=== PATIENT | male | born 1965 | race American Indian/Alaskan Native ===

== ENCOUNTER 2017-01-24 11:07 | Day surgery (SDC) | payer MEDICARE, MEDICAID ==
[2017-01-18 11:54] VITALS: BMI 29.7
[2017-01-24] MEDS ORDERED: Midazolam 2 MG/2 ML VIAL ONE (13:01)
[2017-01-24] MEDS ORDERED: Propofol 10 mg/ml Inj (20 ML) ONE (13:01)
[2017-01-24] MEDS ORDERED: ePHEDrine 50 mg/ml Inj ONE (13:13)
[2017-01-24 13:31] VITALS: TEMP 98.4; O2SAT 99
[2017-01-24 14:16] VITALS: BP 93/46; PULSE 91; RESP 18
== END 2017-01-24 15:00 | disposition home or self-care (01) ==
LOC: ENDO 11:07
PROVIDERS: ATTEND Internal Medicine
DX: Z12.11 Encounter for screening for malignant neoplasm of colon (principal); K64.8 Other hemorrhoids; E78.5 Hyperlipidemia, unspecified; I12.9 Hypertensive chronic kidney disease with stage 1 through stage 4 chronic kidney disease, or unspecified chronic kidney disease; E11.22 Type 2 diabetes mellitus with diabetic chronic kidney disease; N18.9 Chronic kidney disease, unspecified; N62 Hypertrophy of breast

== ENCOUNTER 2017-02-12 11:32 | Inpatient (IN) | payer MEDICARE, MEDICAID ==
--- NOTE | 2017-02-12 12:16 | ED PDOC ---
Arrival/HPI - General Chief Complaint: Shortness Of Breath Time Seen by Provider: 02/12/17 11:46 Historian: Patient - History of Present Illness Narrative History of Present Illness (Text): 02/12/17 11:49 Jovanny Vitale is a 51 year old male, whose past medical history includes diabetes , dialysis (M, W, F), and hypertension, who presents to the emergency department after a syncopal episode at home prior to arrival. Patient stated that he woke up in his usoh and began to feel shortness of breath as he went out. He returned home and was walking to his room when he began to feel more shortness of breath and a slight chest pain, and then passed out. Family said they heard a thud on the floor. Patient was found by family quivering on the floor. At present, patient's symptoms have improved after being given oxygen in emergency department. Patient's mother notes that the patient did not eat any breakfast and did not take any of his daily medications yet today. Patient denies any vomiting, urinary symptoms, trauma, head injury, or any other complaint at this time. PMD: Dr. De Souza Time/Duration: Prior to Arrival Symptom Onset: Sudden Symptom Course: Improving Activities at Onset: Light Context: Home Past Medical History - Provider Review Nursing Documentation Reviewed: Yes - Past History Past History: No Previous - Infectious Disease Hx of Infectious Diseases: None - Tetanus Immunization Tetanus Immunization: Unknown - Cardiac Hx Pacemaker: No - Pulmonary Hx Respiratory Disorders: Yes Hx Pneumonia: Yes - Neurological Hx Paralysis: No - HEENT Hx HEENT Disorder: No - Renal Hx Renal Disorder: Yes Hx Dialysis: Yes (MWF) Type of Dialysis Access: shunt Date of Last Dialysis Treatment: 09/19/16 Hx Renal Failure: Yes Other/Comment: Pt states his kidneys function at 30% - Endocrine/Metabolic Hx Endocrine Disorders: Yes Hx Diabetes Mellitus Type 1: Yes Hx Diabetes Mellitus Type 2: Yes - Hematological/Oncological Hx Blood Transfusions: No Hx Blood Transfusion Reaction: No - Integumentary Hx Dermatological Disorder: No - Musculoskeletal/Rheumatological Hx Musculoskeletal Disorders: No - Gastrointestinal Hx Gastrointestinal Disorders: Yes - Genitourinary/Gynecological Hx Genitourinary Disorders: No - Psychiatric Hx Emotional Abuse: No Hx Physical Abuse: No Hx Substance Use: No - Past Surgical History Past Surgical History: No Previous - Surgical History Hx Vascular Surgery: Yes (Perma cath insertion right chest) Other/Comment: Kidney Bx - Anesthesia Hx Anesthesia: Yes Hx Anesthesia Reactions: No Hx Malignant Hyperthermia: No - Suicidal Assessment Feels Threatened In Home Enviroment: No Family/Social History - Physician Review Nursing Documentation Reviewed: Yes Family/Social History: No Known Family HX Smoking Status: Never Smoked Hx Alcohol Use: No Hx Substance Use: No Hx Substance Use Treatment: No Allergies/Home Meds Allergies/Adverse Reactions: Allergies No Known Allergies Allergy (Verified 01/18/17 11:56) Home Medications: Home Meds Medication Instructions Recorded Confirmed Insulin Human NPH/Reg [HumuLIN 30 units SC ACBD 09/16/13 02/12/17 70/30 (NPH/Reg)] cloNIDine [Catapres] 0.2 mg PO QAM 06/07/16 02/12/17 Carvedilol [Coreg] 12.5 mg PO QAM 06/08/16 02/12/17 Cinacalcet [Sensipar] 30 mg PO QAM 08/24/16 02/12/17 Aspirin [Aspirin EC] 325 mg PO QAM 11/20/16 02/12/17 Atorvastatin [Lipitor] 40 mg PO QAM 11/22/16 02/12/17 Allopurinol [Zyloprim] 300 mg PO QAM 01/18/17 02/12/17 Ferric Citrate [Auryxia] 2 tab PO ACTID 01/18/17 02/12/17 Review of Systems - Physician Review All systems were reviewed & negative as marked: Yes - Review of Systems Constitutional: absent: Fevers, Night Sweats Eyes: absent: Vision Changes ENT: absent: Hearing Changes Respiratory: SOB. absent: Cough Cardiovascular: Chest Pain Gastrointestinal: absent: Abdominal Pain Genitourinary Male: absent: Urinary Output Changes (on dialysis (very little urine output at baseline)) Musculoskeletal: absent: Back Pain, Neck Pain Neurological: Dizziness Endocrine: absent: Polyuria, Polydipsia Hemo/Lymphatic: absent: Easy Bleeding Psychiatric: absent: Suicidal Ideation Physical Exam Vital Signs Reviewed: Yes Vital Signs Temp Pulse Resp BP Pulse Ox 02/12/17 14:23 102 H 18 109/69 97 02/12/17 13:09 100 H 18 107/68 97 02/12/17 11:53 18 92 L 02/12/17 11:35 98.4 F 101 H 18 105/65 86 L O2 saturation is 90% on Room Air Temperature: Afebrile Blood Pressure: Normal Pulse: Tachycardic (S1, S2) Respiratory Rate: Normal Appearance: Positive for: Non-Toxic Pain Distress: None Mental Status: Positive for: Alert and Oriented X 3 - Systems Exam Head: Present: Atraumatic, Normocephalic Pupils: Present: PERRL Conjunctiva: Present: Normal Mouth: Present: Moist Mucous Membranes Pharnyx: Present: Normal. No: ERYTHEMA, EXUDATE Neck: Present: Normal Range of Motion Respiratory/Chest: Present: Clear to Auscultation, Good Air Exchange. No: Respiratory Distress, Accessory Muscle Use Cardiovascular: Present: Normal S1, S2, Tachycardic. No: Murmurs Abdomen: Present: Normal Bowel Sounds. No: Tenderness, Distention, Peritoneal Signs Back: Present: Normal Inspection Upper Extremity: Present: Normal Inspection. No: Cyanosis, Edema Lower Extremity: Present: Normal Inspection. No: Edema Neurological: Present: GCS=15, CN II-XII Intact, Speech Normal Skin: Present: Warm, Dry, Normal Color. No: Rashes Psychiatric: Present: Alert, Oriented x 3, Normal Insight, Normal Concentration Medical Decision Making ED Course and Treatment: 02/12/17 11:49 Impression: 51 year old male complaining of a syncopal episode prior to arrival. Differential Diagnosis include but are not limited to: fluid overload vs. PE vs pneumonia vs ACS Plan: -- EKG -- Chest X-ray -- Labs -- Reassess and disposition Prior Visits: Notes and results from previous visits were reviewed. Patient last seen in ED on 09/01/16 for chest pain. Patient was discharged home. Progress Notes: EKG: Ordered, reviewed, and independently interpreted the EKG. Rate : 114 BPM Rhythm : Sinus Tachycardia Interpretation : No ST-segment elevations or depressions, no T-wave inversions, normal intervals. Comparison : No ST-T change compared with 09/01/16 02/12/17 13:[address]: Creator : Reece Rocha MD FINDINGS: PULMONARY ARTERIES: Extensive pulmonary artery filling defects. There is nonocclusive saddle embolus. There are filling defects in lingular and left lower lobe pulmonary artery branches. There are filling defects in right upper, middle and lower lobe pulmonary artery branches. AORTA:No acute findings. No thoracic aortic aneurysm. LUNGS:Unremarkable. No nodule, mass or pulmonary consolidation. PLEURAL SPACES:Unremarkable. No effusion or pneuomothorax. HEART:Unremarkable. No cardiomegaly. No significant pericardial effusion. LYMPH NODES:No lymphadenopathy. BONES, CHEST WALL:Unremarkable. No fracture or destructive lesion OTHER FINDINGS:Unremarkable. IMPRESSION: Extensive bilateral pulmonary embolism. 02/12/17 14:55 Patient with noted history; noted to be tachycardic and hypoxic at high 80s% on room air. Lungs however were CTA b/L. Concern for possible PE. Labs with highly elevated d-dimer and CTA showed extensive b/L pulmonary emboli. Will start heparin. Case discussed with family regarding results. Case discussed with ICU attending, Dr. Granados. Case also discussed with on-call physician, Dr. Umana for admission to Dr. Winchester' service. 02/12/17 15:04 Chest X-ray: Creator : Manuel Padgett MD FINDINGS: LUNGS:No active pulmonary disease. PLEURA:No significant pleural effusion identified, no pneumothorax apparent. CARDIOVASCULAR:Normal. OSSEOUS STRUCTURES:No significant abnormalities. VISUALIZED UPPER ABDOMEN:Normal. OTHER FINDINGS:None. IMPRESSION: No active disease. 02/12/17 15:07 Extremity Ultrasound: Creator : Reece Ramos MD FINDINGS: The visualized deep venous systems of both lower extremities are sonographically normal and compressible. Normal wave forms and augmentation are seen. There is no sonographic evidence for deep venous thrombosis in the visualized segments of both lower extremities. IMPRESSION: No sonographic evidence for deep venous thrombosis in the visualized segments of both lower extremities. - Critical Care Critical Care Minutes: 30 minutes - Lab Interpretations Lab Results: 02/12/17 12:15 02/12/17 12:15 Lab Results 02/12/17 12:15: Sodium 141, Potassium 4.5, Chloride 96, Carbon Dioxide 29, Anion Gap 21 H, BUN 38 H, Creatinine 11.8 H*, Est GFR ( Amer) 6, Est GFR (Non-Af Amer) 5, Random Glucose 174 H, Calcium 9.7, Magnesium 2.6 H, Total Bilirubin 1.0, AST 22, ALT 17, Alkaline Phosphatase 90, Lactate Dehydrogenase 511, Total Creatine Kinase 115, Troponin I 0.05 D, Total Protein 9.1 H, Albumin 4.8, Globulin 4.3, Albumin/Globulin Ratio 1.1, Lipase 143 02/12/17 12:15: PT 11.1, INR 1.03, APTT 23.6 L, D-Dimer, Quantitative 8.43 H 02/12/17 12:15: WBC 8.7 D, RBC 3.32 L, Hgb 10.5 L, Hct 33.1 L, MCV 99.7, MCH 31.6, MCHC 31.7, RDW 15.2 H, Plt Count 163, MPV 11.6 H, Gran % 74.8 H, Lymph % ( Auto) 14.7 L, Corson % (Auto) 7.6 H, Eos % (Auto) 2.7, Baso % (Auto) 0.2, Gran # 6.53 H, Lymph # 1.3, Corson # 0.7 H, Eos # 0.2, Baso # 0.02 02/12/17 11:50: POC Glucose (mg/dL) 182 H I have reviewed the lab results: Yes - RAD Interpretation Radiology Orders: 02/12/17 11:56 CHEST PORTABLE [RAD] Stat 02/12/17 12:56 ANGIO CHEST PE PROTOCOL [CT] Stat DUPLEX LOWER EXTRM VEIN BILAT [US] Stat - Medication Orders Current Medication Orders: Carvedilol (Coreg) 12.5 mg PO QAM ANDREW Clonidine HCl (Catapres) 0.2 mg PO QAM [facility] Insulin Human Regular (Humulin R Med) 0 units SC Q4H ANDREW PRN Reason: Protocol Pantoprazole Sodium (Protonix Ec Tab) 40 mg PO 0630 ANDREW Discontinued Medications Heparin Sodium (Porcine) (Heparin) 7,700 units 80 units/kg (7700 units) IV ONCE ONE PRN Reason: Protocol Stop: 02/12/17 13:44 Last Admin: 02/12/17 14:15 Dose: 7,700 units Heparin Sodium/Sodium Chloride (Heparin 39370 Units/250ml 1/2 Normal Saline) 25 ,000 units in 250 mls @ 17.227 mls/hr IV .[id number] STA; 18 UNITS/KG/HR PRN Reason: Protocol Stop: 02/12/17 13:45 Last Admin: 02/12/17 14:15 Dose: 18 units/kg/hr, 17.227 mls/hr Iodixanol (Visipaque 320 Mg/Ml 100 Ml) Confirm Administered Dose 100 ml IV .[facility] Stop: 02/12/17 13:12 - Scribe Statement The provider has reviewed the documentation as recorded by the Scribe Ellie Lee Provider Scribe Attestation: All medical record entries made by the Scribe were at my direction and personally dictated by me. I have reviewed the chart and agree that the record accurately reflects my personal performance of the history, physical exam, medical decision making, and the department course for this patient. I have also personally directed, reviewed, and agree with the discharge instructions and disposition. Disposition/Present on Arrival - Present on Arrival Any Indicators Present on Arrival: No History of DVT/PE: No History of Uncontrolled Diabetes: No Urinary Catheter: No History of Decub. Ulcer: No History Surgical Site Infection Following: None - Disposition Have Diagnosis and Disposition been Completed?: Yes Diagnosis: Pulmonary emboli Disposition: HOSPITALIZED Disposition Time: 13:45 Patient Plan: ICU Patient Problems: Current Active Problems Problem Status Onset Pulmonary emboli Acute Condition: SERIOUS
[2017-02-12 12:17] LABS: ADD MANUAL DIFF? NO
[2017-02-12 12:23] LABS: BASO # 0.02 K/mm3 (0.0-2.0); BASO % 0.2 % (0.0-3.0); EOS # 0.2 (0.0-0.7); EOS % 2.7 % (1.5-5.0); GRAN # 6.53 (1.4-6.5); GRAN % 74.8 % (50.0-68.0); HEMATOCRIT 33.1 % (42.0-52.0); LYMPH # 1.3 (1.2-3.4); LYMPH % 14.7 % (22.0-35.0); MEAN CELL VOLUME 99.7 fL (80.0-105.0); MEAN CORPUSCULAR HEMOGLOBIN 31.6 pg (25.0-35.0); MEAN CORPUSCULAR HGB CONC 31.7 g/dl (31.0-37.0); MEAN PLATELET VOLUME 11.6 fl (7.0-11.0); MONO # 0.7 (0.1-0.6); MONO % 7.6 % (1.0-6.0); PLATELET COUNT 163 10^3/uL (120.0-450.0); RED CELL DISTRIBUTION WIDTH 15.2 % (11.5-14.5); WHITE BLOOD COUNT 8.7 10^3/ul (4.5-11.0)
--- NOTE | 2017-02-12 12:30 | RAD ---
HISTORY: shortness of breath, syncope COMPARISON: 09/01/2016 FINDINGS: LUNGS: No active pulmonary disease. PLEURA: No significant pleural effusion identified, no pneumothorax apparent. CARDIOVASCULAR: Normal. OSSEOUS STRUCTURES: No significant abnormalities. VISUALIZED UPPER ABDOMEN: Normal. OTHER FINDINGS: None. IMPRESSION: No active disease.
[2017-02-12 12:38] LABS: ALB/GLOB RATIO 1.1 (1.1-1.8); CALCIUM 9.7 mg/dL (8.4-10.5); MAGNESIUM 2.6 mg/dL (1.7-2.2); POTASSIUM 4.5 mmol/L (3.6-5.0); TOTAL PROTEIN 9.1 g/dL (5.8-8.3)
[2017-02-12 12:46] LABS: TROPONIN I 0.05 ng/mL
[2017-02-12 12:47] LABS: INR 1.03 (0.93-1.08); PARTIAL THROMBOPLASTIN TIME 23.6 Seconds (23.7-30.8)
[2017-02-12 12:56] LABS: D DIMER 8.43 mg/L FEU (0-0.50)
[2017-02-12] MEDS ORDERED: Iodixanol 320 MG/ML 100 ML BOTTLE IV ONE (13:11)
[2017-02-12] MEDS ORDERED: Heparin25000 units/250ml 1/2NS 25,000 UNITS/250 ML BAG IV STA (13:44)
--- NOTE | 2017-02-12 13:44 | CT ---
PROCEDURE: CT Chest with contrast (Pulmonary Angiogram) HISTORY: sob, chest pain, syncope - r/o PE COMPARISON: None available. TECHNIQUE: Axial computed tomography images were obtained of the chest in the pulmonary arterial phase of enhancement. Coronal and sagittal reformatted images were created and reviewed. Intravenous contrast dose: 100 mL Visipaque 320 Radiation dose: Total exam DLP = 715.53 mGy-cm. This CT exam was performed using one or more of the following dose reduction techniques: Automated exposure control, adjustment of the mA and/or kV according to patient size, and/or use of iterative reconstruction technique. FINDINGS: PULMONARY ARTERIES: Extensive pulmonary artery filling defects. There is nonocclusive saddle embolus. There are filling defects in lingular and left lower lobe pulmonary artery branches. There are filling defects in right upper, middle and lower lobe pulmonary artery branches. AORTA: No acute findings. No thoracic aortic aneurysm. LUNGS: Unremarkable. No nodule, mass or pulmonary consolidation. PLEURAL SPACES: Unremarkable. No effusion or pneuomothorax. HEART: Unremarkable. No cardiomegaly. No significant pericardial effusion. LYMPH NODES: No lymphadenopathy. BONES, CHEST WALL: Unremarkable. No fracture or destructive lesion OTHER FINDINGS: Unremarkable. IMPRESSION: Extensive bilateral pulmonary embolism. This finding was discussed by telephone with Dr. Xiao at 1:40 p.m. on 02/12/2017.
--- NOTE | 2017-02-12 14:40 | US ---
HISTORY: Leg pain and swelling. Evaluate for DVT PHYSICIAN(S): Reece Azevedo MD. TECHNIQUE: Duplex sonography and color-flow Doppler with graded compression were used to evaluate the deep venous systems of both lower extremities. FINDINGS: The visualized deep venous systems of both lower extremities are sonographically normal and compressible. Normal wave forms and augmentation are seen. There is no sonographic evidence for deep venous thrombosis in the visualized segments of both lower extremities. IMPRESSION: No sonographic evidence for deep venous thrombosis in the visualized segments of both lower extremities.
--- NOTE | 2017-02-12 15:10 | CON ---
DATE: 02/12/2017 This is a 51-year-old gentleman with history of diabetes, hypertension, end- stage renal disease on dialysis, and a history of several syncopal episodes in the past, who presented this time with another syncopal episode that happened today. The patient was admitted to [facility] Emergency Room where subsequent workup revealed a large saddle embolus. The patient's first troponin came back negative. BNP is pending. Echocardiogram is pending. The patient denies nausea, vomiting, diarrhea, or constipation. He does have some pleuritic chest pain, increased shortness of breath, preceding syncopal episodes. No hemoptysis, no cough, no sputum production. PAST MEDICAL HISTORY: Diabetes, hypertension, end-stage renal disease, dialysis. FAMILY HISTORY: Noncontributory. SOCIAL HISTORY: No alcohol or illicit drug abuse. No tobacco smoking. FAMILY HISTORY: Positive for VTE in his mom. ALLERGIES: NKDA. REVIEW OF SYSTEMS: Revealed 12-organ system other than mentioned in history of present illness is negative. PHYSICAL EXAMINATION: VITAL SIGNS: Temperature 98.4, heart rate 102, blood pressure 109/69, respiratory rate 18, oxygen saturation 97% on nasal cannula. HEAD AND NECK: Atraumatic. LUNGS: Clear to auscultation bilaterally. HEART: Regular rate and rhythm. S1, S2 normal. ABDOMEN: Soft, nontender, nondistended. MUSCULOSKELETAL: No C/C/E. NEUROLOGIC: The patient moves all extremities spontaneously. SKIN: Moist. PSYCHIATRIC: The patient is alert and oriented x 3. LABORATORY DATA: Sodium 141, potassium 4.5, BUN 38, creatinine 11.8 (on dialysis), glucose 174, AST 22, ALT 12. Troponin 0.05. WBC 8.7, hemoglobin 10.5, platelet count 163. MEDICATIONS AT HOME: Clonidine, insulin 70/30,, Sensipar, Coreg, Lipitor, aspirin, Zyloprim. CAT scan the chest revealed extensive bilateral pulmonary embolism. ASSESSMENT AND PLAN: This is a 51-year-old gentleman who presented with saddle embolus with syncopal episode. At present time, the patient is alert, awake, hemodynamically and respiratory-bal stable except for mild tachycardia at 103. The patient is on therapeutic anticoagulation with heparin. Hematology consult requested. Echocardiogram and BNP are pending to evaluate short-term risk for poor outcome. The patient will be going to ICU. As the patient has ESRD and on HD, I would recommend avoiding DOA (ESRD/HD patients were excluded from RCT with DOA) and proceed with coumadin after PTT becomes therapeutic, however will defer final judgement on choice of anticoagulants to Hem service. I would continue to target euvolemia, euglycemia, normothermia, and oxygen saturation more than 90%. I would continue with deep venous thrombosis and gastrointestinal prophylaxis. ccm time 40 min Jordan Law MD cc: [id number] TT: 02/12/2017 15:09:47 Confirmation # [id number] Dictation # [id number] MTDD
[2017-02-12] MEDS ORDERED: Insulin Regular 1 UNITS/0.01 ML ML ONE (15:52)
[2017-02-12] MEDS: Insulin Reg-MEDIUM-Coverage SC SCH ×3 (15:53→22:20)
--- NOTE | 2017-02-12 15:59 | CP.PCM.HP ---
<Telma Orellana - Last Filed: 02/13/17 17:23> History of Present Illness - History of Present Illness History of Present Illness: CC: I felt short of breath and I fell Patient is a 51 y/o AAM with PMH of htn, diabetic nephropathy, ESRD ( HD M,W,F) , Anemia of chronic disease, hld, gastric ulcer, IDDM2, h/o falls presented to the ED s/p syncope. Patient states earlier today, while walking around the house , he felt short of breath, and dizzy and fell on the ground. Patient states he fell on the left side of his body. Patient states he remembers the event as it unfolded, patient denies LOC. Patient doesn't remember hitting his head. Patient denies seizures or h/o seizures. Patient admits to falling in the past, with the recent one being 2 weeks ago. Patient walks unassisted. Patient states when he fell he felt sweaty, admits to cough with yellow sputum for the past 2 weeks. Patient denies n/v/d, denies headache. Admits to sob, and cp. Denies dizziness. Denies aches and pain on the left side of his body, denies bruises. Patient is been on HD since Jul 2016 2nd to uncontrolled DM and htn. Patient states he spends most of his time at home lying down, only goes outside sometimes. No recent travels. Patient was tachy and hypoxic in the ED, d-dimer was elevated , CTPA revealed bilateral extensive PE. LE U/S was negative for DVT. PMH: htn, diabetic nephropathy, ESRD ( HD M,W,F), Anemia of chronic disease, hld , gastric ulcer, IDDM2, h/o falls. PSH: A-F fistula 2016, HD catheter [facility]: Mom has h/o PE and DVT on Coumadin, htn, DM. Father from cancer ( don't know the type) Maternal aunt has PE and DVTs as well. Social: denies tobacco or illicit drug use, denies alcohol. unemployed. Lives with his mom. Allergy: NKDA Home meds: please see emr for full list. Present on Admission - Present on Admission Any Indicators Present on Admission: Yes History of DVT/PE: No History of Uncontrolled Diabetes: Yes Urinary Catheter: No Decubitus Ulcer Present: No Review of Systems - Review of Systems All systems: reviewed and no additional remarkable complaints except - Constitutional Constitutional: As Per HPI - EENT Eyes: As Per HPI Nose/Mouth/Throat: As Per HPI - Cardiovascular Cardiovascular: As Per HPI - Respiratory Respiratory: As Per HPI - Gastrointestinal Gastrointestinal: As Per HPI - Genitourinary Genitourinary: As Per HPI - Reproductive: Male Reproductive:Male: As Per HPI - Musculoskeletal Musculoskeletal: As Per HPI - Integumentary Integumentary: As Per HPI - Neurological Neurological: As Per HPI - Psychiatric Psychiatric: As Per HPI - Endocrine Endocrine: As Per HPI - Hematologic/Lymphatic Hematologic: absent: Easy Bleeding, Easy Bruising Past Patient History - Infectious Disease Hx of Infectious Diseases: None - Tetanus Immunizations Tetanus Immunization: Unknown - Past Medical History & Family History Past Medical History?: Yes - Past Social History Smoking Status: Never Smoked Alcohol: None Drugs: Denies Home Situation {Lives}: With Family - CARDIAC Hx Pacemaker: No - PULMONARY Hx Respiratory Disorders: Yes Hx Pneumonia: Yes - NEUROLOGICAL Hx Paralysis: No - HEENT Hx HEENT Problems: No - RENAL Hx Chronic Kidney Disease: Yes Hx Dialysis: Yes (MWF) Type of Dialysis Access: shunt Date of Last Dialysis Treatment: 09/19/16 Hx Renal Failure: Yes Other/Comment: Pt states his kidneys function at 30% - ENDOCRINE/METABOLIC Hx Endocrine Disorders: Yes Hx Diabetes Mellitus Type 1: Yes Hx Diabetes Mellitus Type 2: Yes - HEMATOLOGICAL/ONCOLOGICAL Hx Blood Transfusions: No Hx Blood Transfusion Reaction: No - INTEGUMENTARY Hx Dermatological Problems: No - MUSCULOSKELETAL/RHEUMATOLOGICAL Hx Musculoskeletal Disorders: No - GASTROINTESTINAL Hx Gastrointestinal Disorders: Yes - GENITOURINARY/GYNECOLOGICAL Hx Genitourinary Disorders: No - PSYCHIATRIC Hx Emotional Abuse: No Hx Physical Abuse: No Hx Substance Use: No - SURGICAL HISTORY Hx Vascular Surgery: Yes (Perma cath insertion right chest) Other/Comment: Kidney Bx - ANESTHESIA Hx Anesthesia: Yes Hx Anesthesia Reactions: No Hx Malignant Hyperthermia: No Meds Allergies/Adverse Reactions: Allergies Allergy/AdvReac Type Severity Reaction Status Date / Time No Known Allergies Allergy Verified 01/18/17 11:56 Physical Exam - Constitutional Appears: No Acute Distress, Chronically Ill - Head Exam Head Exam: ATRAUMATIC, NORMAL INSPECTION, NORMOCEPHALIC - Eye Exam Eye Exam: EOMI, Normal appearance, PERRL. absent: Scleral icterus - ENT Exam ENT Exam: Mucous Membranes Dry Additional comments: and pale. - Neck Exam Neck exam: Positive for: Normal Inspection - Respiratory Exam Respiratory Exam: Clear to Auscultation Bilateral, NORMAL BREATHING PATTERN. absent: Rales, Rhonchi, Wheezes, Respiratory Distress, Stridor - Cardiovascular Exam Cardiovascular Exam: Tachycardia, REGULAR RHYTHM, RRR, +S1, +S2. absent: Systolic Murmur - GI/Abdominal Exam GI & Abdominal Exam: Normal Bowel Sounds, Soft. absent: Distended, Firm, Guarding, Rigid, Tenderness - Extremities Exam Extremities exam: Positive for: normal inspection. Negative for: calf tenderness, pedal edema, tenderness Additional comments: Negative kaylene's sign - Back Exam Back exam: NORMAL INSPECTION - Neurological Exam Neurological exam: Alert, Oriented x3 - Psychiatric Exam Psychiatric exam: Depressed - Skin Skin Exam: Dry, Intact, Normal Color, Warm Additional comments: . Results - Vital Signs Recent Vital Signs: Last Vital Signs Temp 98.4 F 02/12/17 11:35 Pulse 98 H 02/12/17 15:48 Resp 18 02/12/17 15:48 BP 111/71 02/12/17 15:48 Pulse Ox 98 02/12/17 15:48 - Labs Result Diagrams: 02/12/17 12:15 02/12/17 12:15 Assessment & Plan - Assessment and Plan (Free Text) Assessment: Patient is a 51 y/o AAM with PMH of htn, diabetic nephropathy, ESRD ( HD M,W,) , Anemia of chronic disease, hld, gastric ulcer, IDDM2 presented to the ED s/p syncope. Plan: 1) Syncope secondary to bilateral extensive PE on CT - Patient is not hypoglycemic, not hypotensive, and stable h/h thus less likely to be the cause. - Patient was hypoxic on arrival to the ED, currently saturating well on room air. - LE u/s negative for dvt. - Patient is also currently hemodynamically stable - admit to ICU for close monitoring - heparin bolus and drip as per protocol - echo ordered to evaluate for right sided heart strain - troponin normal x1, will continue to trend. - heme onc on consult - cardio consult 2) ESRD -with anemia - HD M, W , F - Nephro consult for HD - renal carb controlled diet. 3) htn - clonidine and coreg 4) IDDM - ISSS - Accuchekc achs - carb controlled diet 5) DVT and gi prophylaxis: heparin drip for pe, and protonix. Patient seen, examined, will discuss with Dr Umana. - Date & Time Date: 02/12/17 Time: 15:25 <Francisco Javier Umana - Last Filed: 03/07/17 18:39> Results - Vital Signs Recent Vital Signs: Last Vital Signs Temp 98.3 F 02/15/17 19:52 Pulse 110 H 02/15/17 19:52 Resp 20 02/15/17 19:52 BP 128/76 02/15/17 19:52 Pulse Ox 96 02/15/17 19:52 - Labs Result Diagrams: 02/17/17 07:47 02/17/17 07:44 Attending/Attestation - Attestation I have personally seen and examined this patient.: Yes I have fully participated in the care of the patient.: Yes I have reviewed all pertinent clinical information: Yes Notes (Text): 03/06/17 15:08 Medical record note made by the resident after discussion with my direction and input after the patient was personally seen and examined by me. I have reviewed the chart and agree that the record accurately reflects by personal performance of the history, physical exam, data review, and medical decision-making, in the course for the patient. I have also personally directed the plan of care.
[2017-02-12 17:44] VITALS: BMI 28.2
[2017-02-12] MEDS: Heparin25000 units/250ml 1/2NS 25,000 UNITS/250 ML BAG IV SCH (17:45)
--- NOTE | 2017-02-12 21:37 | CARD ---
APPROVED REPORT EKG Measurement Heart [id number] <Conclusion> Sinus tachycardia Otherwise normal ECG
--- NOTE | 2017-02-12 22:20 | CON ---
DATE: 02/12/2017 REASON FOR CONSULTATION: Bilateral pulmonary embolism. REQUESTING PHYSICIAN: Dr. Winchester. HISTORY OF PRESENT ILLNESS: The patient is a 51-year-old male known to me from office. He accompanies his mother who has a history of bilateral DVT and pulmonary embolism. Aunt also has history of DVT. He was brought to the ER for sudden onset of shortness of breath. CAT scan of the chest showed bilateral extensive pulmonary embolism. He was started on dialysis last year. He is being currently dialyzed on Saturday, Saturday, Saturday. Doppler of lower extremity did not show any DVT. Hemodynamically, he is stable. Currently getting heparin drip. He was walking in the house when he felt sudden shortness of breath, no recent long drive or airplane travels. No edema or swelling of bilateral lower extremities. PAST MEDICAL HISTORY: End-stage renal disease currently on hemodialysis, diabetes mellitus type 2. PAST SURGICAL HISTORY: History of shunt placement, permanent catheter insertion for dialysis. FAMILY HISTORY: None. FAMILY HISTORY: Positive strong family history of DVT and pulmonary embolism. Mother had thrombosis and pulmonary embolism. One aunt had DVT. PERSONAL HISTORY: Never smoked. No history of alcohol abuse. SOCIAL HISTORY: Lives at home. ALLERGIES: No known drug allergies. HOME MEDICATIONS: Insulin, clonidine 0.2 mg in the morning, Coreg 12.5 mg in the morning, aspirin 325 mg in the morning, Lipitor 40 mg daily. REVIEW OF SYSTEMS: As per HPI. Rest of 12-point review of systems reviewed and negative. PHYSICAL EXAMINATION: GENERAL: Comfortable in bed, in no acute distress. VITAL SIGNS: Pulse ox is 86% on oxygen by nasal cannula, respiratory rate 18 per minute, blood pressure 105/65, heart rate is 101 per minute, temperature 98.4. HEENT: Normal. NECK: No lymphadenopathy. CHEST: Air entry present, equal bilateral. No added sounds. CARDIOVASCULAR: S1, S2 normal. No murmur, no gallop. ABDOMEN: Soft, nontender, no hepatosplenomegaly. EXTREMITIES: No edema. SPINE: Nontender. CENTRAL NERVOUS SYSTEM: Alert, oriented x 3. No sensory or motor deficit. No calf tenderness. SKIN: No petechia, no rashes. LABORATORY DATA: White count 8.7, hemoglobin 10.5, hematocrit 33.1, MCV 99.7, platelet count 163. Granulocytes 74%, lymphocytes 14%, monocytes 7.6%. PTT 23.6. D-dimer 8.4. Sodium 141, potassium 4.5, creatinine 11.8, calcium 9.7, magnesium 2.6, AST 22, ALT 17. Troponin 0.05. BNP 500. ASSESSMENT: 1. Extensive bilateral pulmonary embolism, nonocclusive saddle embolism on the left side. 2. End-stage renal disease on hemodialysis. 3. Hypertension. 4. Diabetes mellitus type 2. PLAN: 1. He is currently on heparin drip. I would recommend continuing heparin drip for 24 hours. We will start Coumadin after 24 hours of heparin infusion. Hypercoagulable workup : , factor V Leiden, prothrombin gene mutation, MTHFR gene mutation, antiphospholipid antibody. His mother has MTHFR gene mutation and so does aunt; she also has low level of antiphospholipid antibody. He has unprovoked extensive pulmonary embolism, most likely will need lifelong anticoagulation. 2. End-stage renal disease, currently on hemodialysis. Creatinine elevated to 11.8. 3. Diabetes mellitus. Management as per primary team. 4. He has mild anemia, hemoglobin 10.5, hematocrit 33.1. We will do workup for anemia. If iron studies are normal, he might need erythropoietin stimulating agent to maintain normal hemoglobin in the near future. Discussed with the patient the plan. Thank you, Dr. Winchester, for allowing us to participate in the patient's care. Brooke Escobar MD cc: [id number] TT: 02/12/2017 22:19:44 Confirmation # [id number] Dictation # [id number] ramona HANSEN
[2017-02-13] MEDS: Pantoprazole 40 mg EC Tab PO SCH (06:29)
[2017-02-13] MEDS: Heparin25000 units/250ml 1/2NS 25,000 UNITS/250 ML BAG IV SCH (06:32)
[2017-02-13 07:23] LABS: ADD MANUAL DIFF? NO
[2017-02-13 08:04] LABS: CALCIUM 9.2 mg/dL (8.4-10.5); PHOSPHOROUS 6.9 mg/dL (2.5-4.5); POTASSIUM 4.4 mmol/L (3.6-5.0)
[2017-02-13 08:06] LABS: BASO # 0.02 K/mm3 (0.0-2.0); BASO % 0.2 % (0.0-3.0); EOS # 0.2 (0.0-0.7); EOS % 2.4 % (1.5-5.0); GRAN % 69.4 % (50.0-68.0); HEMATOCRIT 31.4 % (42.0-52.0); LYMPH # 1.9 (1.2-3.4); LYMPH % 18.4 % (22.0-35.0); MEAN CELL VOLUME 98.7 fL (80.0-105.0); MEAN CORPUSCULAR HEMOGLOBIN 30.8 pg (25.0-35.0); MEAN CORPUSCULAR HGB CONC 31.2 g/dl (31.0-37.0); MEAN PLATELET VOLUME 12.2 fl (7.0-11.0); MONO % 9.6 % (1.0-6.0); PLATELET COUNT 181 10^3/uL (120.0-450.0); WHITE BLOOD COUNT 10.1 10^3/ul (4.5-11.0)
[2017-02-13] MEDS: Insulin Reg-MEDIUM-Coverage SC SCH ×4 (08:22→22:20)
[2017-02-13 08:51] LABS: TROPONIN I 0.41 ng/mL
--- NOTE | 2017-02-13 16:26 | CP.CCUPN ---
<Zahida Brown - Last Filed: 02/13/17 16:30> CCU Subjective - Physician Review Events Since Last Encounter (Free Text): 02/13/17 16:23 Pt stable on O2 via NC overnight, continues with some SOB, chest tightness improved Subjective (Free Text): 02/13/17 16:23 Critical care progress note for Dr. Law-Zahida Brown, PGY-1 Pt S & E at bedside this AM. Pt stable overnight, continues with some SOB, however pt feels improved. Pt also reports improvement in chest tightness. Admits to cough, would like a cough suppressant. Denies N/V/F/C, CP. 02/13/17 16:25 CCU Objective - Vital Signs / Intake & Output Vital Signs (Last 4 hours): Vital Signs Pulse Resp BP Pulse Ox 02/13/17 13:40 89 20 97 02/13/17 13:30 93 H 21 100 02/13/17 13:20 94 H 21 96 02/13/17 13:10 92 H 18 97 02/13/17 13:00 92 H 21 153/89 H 97 02/13/17 12:50 92 H 22 98 02/13/17 12:40 94 H 18 98 02/13/17 12:30 89 19 99 Intake and Output (Last 8hrs): Intake & Output 02/13/17 02/13/17 02/13/17 06:59 14:59 22:59 Intake Total 400 50 Balance 400 50 Intake: IV 160 50 Oral 240 Other: Voiding Method Urinal - Physical Exam Head: Positive for: Atraumatic, Normocephalic Pupils: Positive for: PERRL Extroacular Muscles: Positive for: EOMI Conjunctiva: Positive for: Normal Ears: Positive for: Normal Mouth: Positive for: Moist Mucous Membranes Pharnyx: Positive for: Normal. Negative for: ERYTHEMA, EXUDATE Nose (External): Positive for: Atraumatic Neck: Positive for: Normal Range of Motion Respiratory/Chest: Positive for: Clear to Auscultation, Good Air Exchange. Negative for: Respiratory Distress, Accessory Muscle Use, Wheezes, Decreased Breath Sounds, Rales, Retracting, Rhonchi, Tachypneic Cardiovascular: Positive for: Normal S1, S2, Tachycardic. Negative for: Murmurs Abdomen: Positive for: Normal Bowel Sounds. Negative for: Tenderness, Distention, Peritoneal Signs Upper Extremity: Positive for: Normal Inspection. Negative for: Cyanosis, Edema , Swelling Lower Extremity: Positive for: Normal Inspection. Negative for: Edema, Swelling Neurological: Positive for: GCS=15, CN II-XII Intact, Speech Normal Skin: Positive for: Warm, Dry, Normal Color. Negative for: Rashes Psychiatric: Positive for: Alert, Oriented x 3, Normal Insight, Normal Concentration - Medications Active Medications: Active Medications Generic Name Dose Route Start Last Admin Trade Name Freq PRN Reason Stop Dose Admin Benzonatate 100 mg 02/13/17 10:00 02/13/17 09:10 Tessalon Perles PO Not Given TID ANDREW Carvedilol 12.5 mg 02/13/17 10:00 Coreg PO QAM ANDREW Clonidine HCl 0.2 mg 02/13/17 10:00 Catapres PO QAM ANDREW Guaifenesin/Dextromethorphan 5 ml 02/13/17 16:20 Robitussin Dm PO Q4H PRN Cough Heparin Sodium/Sodium Chloride 25,000 units in 250 mls @ 17.227 mls/hr 15:30 02/13/17 08:16 Heparin 19665 Units/250ml 1/2 Normal Saline IV 13 units/kg/hr .[id number] ANDREW 12.442 mls/hr Protocol Titration 18 UNITS/KG/HR Insulin Human Regular 0 units 02/12/17 22:00 02/13/17 11:58 Humulin R Med SC 1 units ACHS ANDREW Administration Protocol Pantoprazole Sodium 40 mg 02/13/17 06:30 02/13/17 06:29 Protonix Ec Tab PO 40 mg 0630 ANDREW Administration Warfarin Sodium 2 mg 02/13/17 18:00 Coumadin PO 1800 [facility] Protocol - Patient Studies Lab Studies: Lab Studies 02/13/17 02/13/17 02/13/17 Range/Units 13:50 06:50 06:50 WBC (4.5-11.0) 10^3/ul RBC (3.5-6.1) 10^6/uL Hgb (14.0-18.0) gm/dL Hct (42.0-52.0) % MCV (80.0-105.0) fL MCH (25.0-35.0) pg MCHC (31.0-37.0) g/dl RDW (11.5-14.5) % Plt Count (120.0-450.0) 10^3/uL MPV (7.0-11.0) fl Gran % (50.0-68.0) % Lymph % (Auto) (22.0-35.0) % Mcleod % (Auto) (1.0-6.0) % Eos % (Auto) (1.5-5.0) % Baso % (Auto) (0.0-3.0) % Gran # (1.4-6.5) Lymph # (1.2-3.4) Mcleod # (0.1-0.6) Eos # (0.0-0.7) Baso # (0.0-2.0) K/mm3 APTT 65.8 H 85.1 H* (23.7-30.8) Seconds Sodium 140 (132-148) mmol/L Potassium 4.4 (3.6-5.0) mmol/L Chloride 97 L (98-107) mmol/L Carbon Dioxide 28 (21-33) mmol/L Anion Gap 19 (10-20) BUN 50 H (7-21) mg/dL Creatinine 13.8 H* (0.5-1.4) mg/dL Est GFR ( Amer) 5 Est GFR (Non-Af Amer) 4 POC Glucose (mg/dL) (65-110) mg/dL Random Glucose 114 H (70-110) mg/dL Calcium 9.2 (8.4-10.5) mg/dL Phosphorus 6.9 H (2.5-4.5) mg/dL Troponin I 0.41 H* D ng/mL 02/13/17 02/12/17 02/12/17 Range/Units 06:50 22:21 22:21 WBC 10.1 (4.5-11.0) 10^3/ul RBC 3.18 L (3.5-6.1) 10^6/uL Hgb 9.8 L (14.0-18.0) gm/dL Hct 31.4 L (42.0-52.0) % MCV 98.7 (80.0-105.0) fL MCH 30.8 (25.0-35.0) pg MCHC 31.2 (31.0-37.0) g/dl RDW 15.0 H (11.5-14.5) % Plt Count 181 (120.0-450.0) 10^3/uL MPV 12.2 H (7.0-11.0) fl Gran % 69.4 H (50.0-68.0) % Lymph % (Auto) 18.4 L (22.0-35.0) % Mcleod % (Auto) 9.6 H (1.0-6.0) % Eos % (Auto) 2.4 (1.5-5.0) % Baso % (Auto) 0.2 (0.0-3.0) % Gran # 7.00 H (1.4-6.5) Lymph # 1.9 (1.2-3.4) Mcleod # 1.0 H (0.1-0.6) Eos # 0.2 (0.0-0.7) Baso # 0.02 (0.0-2.0) K/mm3 APTT 153.6 H* (23.7-30.8) Seconds Sodium (132-148) mmol/L Potassium (3.6-5.0) mmol/L Chloride (98-107) mmol/L Carbon Dioxide (21-33) mmol/L Anion Gap (10-20) BUN (7-21) mg/dL Creatinine (0.5-1.4) mg/dL Est GFR ( Amer) Est GFR (Non-Af Amer) POC Glucose (mg/dL) (65-110) mg/dL Random Glucose (70-110) mg/dL Calcium (8.4-10.5) mg/dL Phosphorus (2.5-4.5) mg/dL Troponin I 0.55 H* D ng/mL 02/12/17 Range/Units 21:50 WBC (4.5-11.0) 10^3/ul RBC (3.5-6.1) 10^6/uL Hgb (14.0-18.0) gm/dL Hct (42.0-52.0) % MCV (80.0-105.0) fL MCH (25.0-35.0) pg MCHC (31.0-37.0) g/dl RDW (11.5-14.5) % Plt Count (120.0-450.0) 10^3/uL MPV (7.0-11.0) fl Gran % (50.0-68.0) % Lymph % (Auto) (22.0-35.0) % Mcleod % (Auto) (1.0-6.0) % Eos % (Auto) (1.5-5.0) % Baso % (Auto) (0.0-3.0) % Gran # (1.4-6.5) Lymph # (1.2-3.4) Mcleod # (0.1-0.6) Eos # (0.0-0.7) Baso # (0.0-2.0) K/mm3 APTT (23.7-30.8) Seconds Sodium (132-148) mmol/L Potassium (3.6-5.0) mmol/L Chloride (98-107) mmol/L Carbon Dioxide (21-33) mmol/L Anion Gap (10-20) BUN (7-21) mg/dL Creatinine (0.5-1.4) mg/dL Est GFR ( Amer) Est GFR (Non-Af Amer) POC Glucose (mg/dL) 152 H (65-110) mg/dL Random Glucose (70-110) mg/dL Calcium (8.4-10.5) mg/dL Phosphorus (2.5-4.5) mg/dL Troponin I ng/mL Laboratory Results - last 24 hr 02/12/17 02/12/17 02/12/17 21:50 22:21 22:21 WBC RBC Hgb Hct MCV MCH MCHC RDW Plt Count MPV Gran % Lymph % (Auto) Mcleod % (Auto) Eos % (Auto) Baso % (Auto) Gran # Lymph # Mcleod # Eos # Baso # APTT 153.6 H* Sodium Potassium Chloride Carbon Dioxide Anion Gap BUN Creatinine Est GFR ( Amer) Est GFR (Non-Af Amer) POC Glucose (mg/dL) 152 H Random Glucose Calcium Phosphorus Troponin I 0.55 H* D 02/13/17 02/13/17 02/13/17 06:50 06:50 06:50 WBC 10.1 RBC 3.18 L Hgb 9.8 L Hct 31.4 L MCV 98.7 MCH 30.8 MCHC 31.2 RDW 15.0 H Plt Count 181 MPV 12.2 H Gran % 69.4 H Lymph % (Auto) 18.4 L Mcleod % (Auto) 9.6 H Eos % (Auto) 2.4 Baso % (Auto) 0.2 Gran # 7.00 H Lymph # 1.9 Mcleod # 1.0 H Eos # 0.2 Baso # 0.02 APTT 85.1 H* Sodium 140 Potassium 4.4 Chloride 97 L Carbon Dioxide 28 Anion Gap 19 BUN 50 H Creatinine 13.8 H* Est GFR ( Amer) 5 Est GFR (Non-Af Amer) 4 POC Glucose (mg/dL) Random Glucose 114 H Calcium 9.2 Phosphorus 6.9 H Troponin I 0.41 H* D 02/13/17 13:50 WBC RBC Hgb Hct MCV MCH MCHC RDW Plt Count MPV Gran % Lymph % (Auto) Mcleod % (Auto) Eos % (Auto) Baso % (Auto) Gran # Lymph # Mcleod # Eos # Baso # APTT 65.8 H Sodium Potassium Chloride Carbon Dioxide Anion Gap BUN Creatinine Est GFR ( Amer) Est GFR (Non-Af Amer) POC Glucose (mg/dL) Random Glucose Calcium Phosphorus Troponin I Fingerstick Blood Sugar Results: 157 Review of Systems - Review of Systems All systems: reviewed and no additional remarkable complaints except - Constitutional Constitutional: absent: Fever, Chills - EENT Eyes: UNREMARKABLE - Cardiovascular Cardiovascular: UNREMARKABLE. absent: Chest Pain - Respiratory Respiratory: Cough. absent: Wheezing - Gastrointestinal Gastrointestinal: UNREMARKABLE. absent: Abdominal Pain, Nausea, Vomiting - Genitourinary Genitourinary: UNREMARKABLE. absent: Difficulty Urinating - Musculoskeletal Musculoskeletal: UNREMARKABLE. absent: Numbness, Tingling - Neurological Neurological: UNREMARKABLE - Psychiatric Psychiatric: UNREMARKABLE Critical Care Progress Note - Extremities/Vascular Does the Patient have a Central Venous Catheter?: No Does the Patient need a Central Venous Catheter?: No Does the Patient have a Richardson Catheter?: No Does the Patient need a Richardson Catheter?: No - Prophylaxis GI Prophylaxis GI: PPI - Prophylaxis DVT Prophylaxis DVT: Heparin SQ - Nutrition Nutrition: Nutrition Category Date Time Status Renal Diet [DIET] Diets 02/12/17 Dinner Ordered Assessment/Plan - Assessment and Plan (Free Text) Assessment: 51M w/PMH sig for HTN, DM, DM nephropathy, ESRD on HD (MWF), anemia of chronic disease, HLD, gastric ulcer, hx falls admitted to ICU s/p syncopal event, found to have large saddle embolus upon work up, started on Heparin drip. Pt stable overnight, pt to be transferred to tele. Plan: Neuro Alert Awake AOx3 Stable CVS Hx HTN HR in 90's BP 131/52 Cont Coreg Cont Clonidine FU Echo Trops positive x 2 (0.55, 0.41) BNP 500 Cardio following Pulm Large saddle embolus Sat in high 90's on 2L O2 via NC Target SaO2 >94% Tessalon perles Robitussion PRN Cont heparin drip Monitor Pulm following- rec for warfarin GI Diabetic renal diet Nephro ESRD on HD For HD MWF BUN 50 Cr 13.8 Electrolytes WNL, except phos Hyperphosphatemia at 6.9- already on HD Target euvolemia Renal diet Nephro following Able to urinate on own Endo Hx DM Diabetic diet ISS Accuchecks BS 114 Target euglycemia as per NICE sugar trial ID Afebrile No Leukocytosis Heme Saddle embolus D-dimer 8.43 On Heparin drip PTT was 153.6 overnight, Heparin held as per protocol, now 85.1, continue to follow PE protocol Hgb 9.8 from 10.5 Hct 31.4 from 32.8 Plts 181 from 339 MSK Encouraged OOBTC/ambulation GI/DVT ppx On heparin drip Protonix SCDs Dispo Stable Transfer to tele Ambulate DW attending - Date & Time Date: 02/13/17 Time: 07:30 <Jordan Law - Last Filed: 02/13/17 17:50> CCU Objective - Vital Signs / Intake & Output Intake and Output (Last 8hrs): Intake & Output 02/13/17 02/13/17 02/13/17 06:59 14:59 22:59 Intake Total 400 50 Balance 400 50 Intake: IV 160 50 Oral 240 Other: Voiding Method Urinal - Medications Active Medications: Active Medications Generic Name Dose Route Start Last Admin Trade Name Freq PRN Reason Stop Dose Admin Benzonatate 100 mg 02/13/17 10:00 02/13/17 09:10 Tessalon Perles PO Not Given TID [facility] Carvedilol 12.5 mg 02/13/17 10:00 Coreg PO QAM ANDREW Clonidine HCl 0.2 mg 02/13/17 10:00 Catapres PO QAM ANDREW Guaifenesin/Dextromethorphan 5 ml 02/13/17 16:20 Robitussin Dm PO Q4H PRN Cough Heparin Sodium/Sodium Chloride 25,000 units in 250 mls @ 17.227 mls/hr 15:30 02/13/17 08:16 Heparin 87389 Units/250ml 1/2 Normal Saline IV 13 units/kg/hr .[id number] ANDREW 12.442 mls/hr Protocol Titration 18 UNITS/KG/HR Insulin Human Regular 0 units 02/12/17 22:00 02/13/17 11:58 Humulin R Med SC 1 units ACHS ANDREW Administration Protocol Pantoprazole Sodium 40 mg 02/13/17 06:30 02/13/17 06:29 Protonix Ec Tab PO 40 mg 0630 ANDREW Administration Warfarin Sodium 2 mg 02/13/17 18:00 Coumadin PO 1800 ANDREW Protocol - Patient Studies Lab Studies: Lab Studies 02/13/17 02/13/17 02/13/17 Range/Units 13:50 06:50 06:50 WBC (4.5-11.0) 10^3/ul RBC (3.5-6.1) 10^6/uL Hgb (14.0-18.0) gm/dL Hct (42.0-52.0) % MCV (80.0-105.0) fL MCH (25.0-35.0) pg MCHC (31.0-37.0) g/dl RDW (11.5-14.5) % Plt Count (120.0-450.0) 10^3/uL MPV (7.0-11.0) fl Gran % (50.0-68.0) % Lymph % (Auto) (22.0-35.0) % Mcleod % (Auto) (1.0-6.0) % Eos % (Auto) (1.5-5.0) % Baso % (Auto) (0.0-3.0) % Gran # (1.4-6.5) Lymph # (1.2-3.4) Mcleod # (0.1-0.6) Eos # (0.0-0.7) Baso # (0.0-2.0) K/mm3 APTT 65.8 H 85.1 H* (23.7-30.8) Seconds Sodium 140 (132-148) mmol/L Potassium 4.4 (3.6-5.0) mmol/L Chloride 97 L (98-107) mmol/L Carbon Dioxide 28 (21-33) mmol/L Anion Gap 19 (10-20) BUN 50 H (7-21) mg/dL Creatinine 13.8 H* (0.5-1.4) mg/dL Est GFR ( Amer) 5 Est GFR (Non-Af Amer) 4 POC Glucose (mg/dL) (65-110) mg/dL Random Glucose 114 H (70-110) mg/dL Calcium 9.2 (8.4-10.5) mg/dL Phosphorus 6.9 H (2.5-4.5) mg/dL Troponin I 0.41 H* D ng/mL 02/13/17 02/12/17 02/12/17 Range/Units 06:50 22:21 22:21 WBC 10.1 (4.5-11.0) 10^3/ul RBC 3.18 L (3.5-6.1) 10^6/uL Hgb 9.8 L (14.0-18.0) gm/dL Hct 31.4 L (42.0-52.0) % MCV 98.7 (80.0-105.0) fL MCH 30.8 (25.0-35.0) pg MCHC 31.2 (31.0-37.0) g/dl RDW 15.0 H (11.5-14.5) % Plt Count 181 (120.0-450.0) 10^3/uL MPV 12.2 H (7.0-11.0) fl Gran % 69.4 H (50.0-68.0) % Lymph % (Auto) 18.4 L (22.0-35.0) % Mcleod % (Auto) 9.6 H (1.0-6.0) % Eos % (Auto) 2.4 (1.5-5.0) % Baso % (Auto) 0.2 (0.0-3.0) % Gran # 7.00 H (1.4-6.5) Lymph # 1.9 (1.2-3.4) Mcleod # 1.0 H (0.1-0.6) Eos # 0.2 (0.0-0.7) Baso # 0.02 (0.0-2.0) K/mm3 APTT 153.6 H* (23.7-30.8) Seconds Sodium (132-148) mmol/L Potassium (3.6-5.0) mmol/L Chloride (98-107) mmol/L Carbon Dioxide (21-33) mmol/L Anion Gap (10-20) BUN (7-21) mg/dL Creatinine (0.5-1.4) mg/dL Est GFR ( Amer) Est GFR (Non-Af Amer) POC Glucose (mg/dL) (65-110) mg/dL Random Glucose (70-110) mg/dL Calcium (8.4-10.5) mg/dL Phosphorus (2.5-4.5) mg/dL Troponin I 0.55 H* D ng/mL 02/12/17 Range/Units 21:50 WBC (4.5-11.0) 10^3/ul RBC (3.5-6.1) 10^6/uL Hgb (14.0-18.0) gm/dL Hct (42.0-52.0) % MCV (80.0-105.0) fL MCH (25.0-35.0) pg MCHC (31.0-37.0) g/dl RDW (11.5-14.5) % Plt Count (120.0-450.0) 10^3/uL MPV (7.0-11.0) fl Gran % (50.0-68.0) % Lymph % (Auto) (22.0-35.0) % Mcleod % (Auto) (1.0-6.0) % Eos % (Auto) (1.5-5.0) % Baso % (Auto) (0.0-3.0) % Gran # (1.4-6.5) Lymph # (1.2-3.4) Mcleod # (0.1-0.6) Eos # (0.0-0.7) Baso # (0.0-2.0) K/mm3 APTT (23.7-30.8) Seconds Sodium (132-148) mmol/L Potassium (3.6-5.0) mmol/L Chloride (98-107) mmol/L Carbon Dioxide (21-33) mmol/L Anion Gap (10-20) BUN (7-21) mg/dL Creatinine (0.5-1.4) mg/dL Est GFR ( Amer) Est GFR (Non-Af Amer) POC Glucose (mg/dL) 152 H (65-110) mg/dL Random Glucose (70-110) mg/dL Calcium (8.4-10.5) mg/dL Phosphorus (2.5-4.5) mg/dL Troponin I ng/mL Laboratory Results - last 24 hr 02/12/17 02/12/17 02/12/17 21:50 22:21 22:21 WBC RBC Hgb Hct MCV MCH MCHC RDW Plt Count MPV Gran % Lymph % (Auto) Mcleod % (Auto) Eos % (Auto) Baso % (Auto) Gran # Lymph # Mcleod # Eos # Baso # APTT 153.6 H* Sodium Potassium Chloride Carbon Dioxide Anion Gap BUN Creatinine Est GFR ( Amer) Est GFR (Non-Af Amer) POC Glucose (mg/dL) 152 H Random Glucose Calcium Phosphorus Troponin I 0.55 H* D 02/13/17 02/13/17 02/13/17 06:50 06:50 06:50 WBC 10.1 RBC 3.18 L Hgb 9.8 L Hct 31.4 L MCV 98.7 MCH 30.8 MCHC 31.2 RDW 15.0 H Plt Count 181 MPV 12.2 H Gran % 69.4 H Lymph % (Auto) 18.4 L Mcleod % (Auto) 9.6 H Eos % (Auto) 2.4 Baso % (Auto) 0.2 Gran # 7.00 H Lymph # 1.9 Mcleod # 1.0 H Eos # 0.2 Baso # 0.02 APTT 85.1 H* Sodium 140 Potassium 4.4 Chloride 97 L Carbon Dioxide 28 Anion Gap 19 BUN 50 H Creatinine 13.8 H* Est GFR ( Amer) 5 Est GFR (Non-Af Amer) 4 POC Glucose (mg/dL) Random Glucose 114 H Calcium 9.2 Phosphorus 6.9 H Troponin I 0.41 H* D 02/13/17 13:50 WBC RBC Hgb Hct MCV MCH MCHC RDW Plt Count MPV Gran % Lymph % (Auto) Mcleod % (Auto) Eos % (Auto) Baso % (Auto) Gran # Lymph # Mcleod # Eos # Baso # APTT 65.8 H Sodium Potassium Chloride Carbon Dioxide Anion Gap BUN Creatinine Est GFR ( Amer) Est GFR (Non-Af Amer) POC Glucose (mg/dL) Random Glucose Calcium Phosphorus Troponin I Critical Care Progress Note - Nutrition Nutrition: Nutrition Category Date Time Status Renal Diet [DIET] Diets 02/12/17 Dinner Ordered Addendum Addendum: 02/13/17 17:41 patient was seen, examined and discussed with Dr. Brown. Her note reflects my exam, assessment and plan, except as below. Meds/Labs/ONE reviewed. 51 with FH of VTE, now with saddle embolism but with stable hemodynamics and minimal fi02 requirement. On TAC with heparin. Hem consult appreciated. Echo is pending. Ok to downgrade to tele. ccm time 40 min
--- NOTE | 2017-02-13 17:23 | CP.PCM.PN ---
<Telma Orellana - Last Filed: 02/13/17 17:26> Subjective - Date & Time of Evaluation Date of Evaluation: 02/13/17 Time of Evaluation: 07:10 - Subjective Subjective: Medicine progress note for Dr Umana and Dr Winchester. Patient reports he is feeling much better. No overnight acute events. Patient c/ o cough. Patient denies fever, chills, n/d/v. Patient denies dizziness. Objective - Vital Signs/Intake and Output Vital Signs (last 24 hours): Temp Pulse Resp BP Pulse Ox 98.1 F 89 20 153/89 H 97 02/13/17 12:00 02/13/17 13:40 02/13/17 13:40 02/13/17 13:00 02/13/17 13:40 Intake and Output: 02/13/17 02/13/17 06:59 18:59 Intake Total 490 50 Balance 490 50 - Medications Medications: Current Medications Benzonatate (Tessalon Perles) 100 mg PO TID [facility] Last Admin: 02/13/17 09:10 Dose: Not Given Carvedilol (Coreg) 12.5 mg PO QAM ANDREW Clonidine HCl (Catapres) 0.2 mg PO QAM ANDREW Guaifenesin/Dextromethorphan (Robitussin Dm) 5 ml PO Q4H PRN PRN Reason: Cough Heparin Sodium/Sodium Chloride (Heparin 82715 Units/250ml 1/2 Normal Saline) 25 ,000 units in 250 mls @ 17.227 mls/hr IV .[id number] ANRDEW; 18 UNITS/KG/HR PRN Reason: Protocol Last Titration: 02/13/17 08:16 Dose: 13 units/kg/hr, 12.442 mls/hr Insulin Human Regular (Humulin R Med) 0 units SC ACHS [facility] PRN Reason: Protocol Last Admin: 02/13/17 11:58 Dose: 1 units Pantoprazole Sodium (Protonix Ec Tab) 40 mg PO 0630 [facility] Last Admin: 02/13/17 06:29 Dose: 40 mg Warfarin Sodium (Coumadin) 2 mg PO 1800 ANDREW PRN Reason: Protocol - Labs Labs: 02/13/17 06:50 02/13/17 06:50 PT 11.1 Seconds (9.9-11.8) 02/12/17 12:15 INR 1.03 (0.93-1.08) 02/12/17 12:15 APTT 65.8 Seconds (23.7-30.8) H 02/13/17 13:50 - Constitutional Appears: No Acute Distress - Head Exam Head Exam: ATRAUMATIC, NORMAL INSPECTION, NORMOCEPHALIC - Eye Exam Eye Exam: EOMI, Normal appearance, PERRL. absent: Scleral icterus - ENT Exam ENT Exam: Mucous Membranes Moist - Neck Exam Neck Exam: Normal Inspection - Respiratory Exam Respiratory Exam: Clear to Ausculation Bilateral, NORMAL BREATHING PATTERN. absent: Rales, Rhonchi, Wheezes, Respiratory Distress, Stridor - Cardiovascular Exam Cardiovascular Exam: Tachycardia, REGULAR RHYTHM, +S1, +S2. absent: Murmur - GI/Abdominal Exam GI & Abdominal Exam: Soft, Normal Bowel Sounds. absent: Distended, Firm, Guarding, Rigid, Tenderness - Extremities Exam Extremities Exam: absent: Pedal Edema - Back Exam Back Exam: NORMAL INSPECTION - Neurological Exam Neurological Exam: Alert, Awake, Oriented x3 - Psychiatric Exam Psychiatric exam: Normal Affect, Normal Mood - Skin Skin Exam: Dry, Intact, Normal Color, Warm Additional comments: AVF on the left upper extremities, + thrill and bruit. Assessment and Plan - Assessment and Plan (Free Text) Assessment: Patient is a 51 y/o AAM with PMH of htn, diabetic nephropathy, ESRD ( HD M,W,) , Anemia of chronic disease, hld, gastric ulcer, IDDM2 presented to the ED s/p syncope. On arrival patient was tachycardic, d-dimer was elevated, CTPA revealed b/l extensive PE. Patient was hemodynamiccally stable. Currently on heparin drip to be bridged with Coumadin. Plan: 1) B/l extensive non occlusive PE- - Hemodynamically stable - on heparin drip - started on Coumadin - hypercoagulable work up as outpatient - heme/on following 2) ESRD -with anemia - HD M, W , F - Nephro consult for HD - renal carb controlled diet. - HD today. 3) htn - clonidine and coreg 4) IDDM - ISSS - Accuchekc achs - carb controlled diet 5) DVT and gi prophylaxis: heparin drip for pe, and protonix. Patient seen, examined, will discuss with Dr Umana. <Francisco Javier Umana - Last Filed: 03/07/17 18:40> Objective - Vital Signs/Intake and Output Vital Signs (last 24 hours): Temp Pulse Resp BP Pulse Ox 98.3 F 110 H 20 128/76 96 02/15/17 19:52 02/15/17 19:52 02/15/17 19:52 02/15/17 19:52 02/15/17 19:52 - Labs Labs: 02/17/17 07:47 02/17/17 07:44 PT 15.3 Seconds (9.9-11.8) H 02/17/17 07:47 INR 1.42 (0.93-1.08) H 02/17/17 07:47 APTT 88.5 Seconds (23.7-30.8) H* 02/17/17 07:47 Attending/Attestation - Attestation I have personally seen and examined this patient.: Yes I have fully participated in the care of the patient.: Yes I have reviewed all pertinent clinical information, including history, physical exam and plan: Yes Notes (Text): 03/06/17 15:09 Medical record note made by the resident after discussion with my direction and input after the patient was personally seen and examined by me. I have reviewed the chart and agree that the record accurately reflects by personal performance of the history, physical exam, data review, and medical decision-making, in the course for the patient. I have also personally directed the plan of care.
--- NOTE | 2017-02-13 20:18 | CON ---
DATE: 02/13/2017 CARDIOLOGY CONSULTATION HISTORY OF PRESENT ILLNESS: The patient is a 51-year-old male who presents with acute shortness of b reath and found to have pulmonary embolism. PAST MEDICAL HISTORY: Notable for history of hypertension, end-stage renal disease, diabetes mellitu s and hypercholesterolemia. The patient is free of cardiac disease in the past. A stress test done last year shows good LV funct ion without ischemia noted. FAMILY HISTORY: Reveals mother with a history of DVTs and pulmonary embolism. SOCIAL HISTORY: Negative smoker. REVIEW OF SYSTEMS: A 14-point review of systems: The patient is without shortness of breath at rest . No chest pain, no edema in the lower extremities. He is tolerating his dialysis at the bedside. PHYSICAL EXAMINATION: VITAL SIGNS: Blood pressure is 156/80, heart rate is in the 80s, normal sinus rhythm. NECK: Negative JVD. LUNGS: Without rales. HEART: Reveals S1, S2. EXTREMITIES: Without edema. LABORATORIES: Hemoglobin is 9.8. Chemistries: The troponin is 0.41. Potassium is 4.4. IMPRESSION: 1. Acute pulmonary embolism. 2. Diabetes mellitus. 3. End-stage renal disease. 4. Hypercholesterolemia. Given these findings, the patient is currently on IV heparin. Investigation into hypercoagulable sta te has been started. Echocardiogram has been done and we will review once available. Reece Lima MD cc: [id number] TT: 02/13/2017 20:17:36 Confirmation # [id number] Dictation # [id number]
--- NOTE | 2017-02-13 20:33 | CON ---
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 The patient reports that he was in his usual state of health until yesterday when he had feelings of lightheadedness and sens ation of falling. The patient did eventually fall, but did not lose consciousness. He also reports associated shortness of breath. Denies any chest pain or palpitations. Denies any leg swelling. Th e patient has been adherent to his hemodialysis routine with last dialysis occurring day before prese ntation, it was uneventful, has been close to his estimated dry weight. PAST MEDICAL HISTORY: As above. FAMILY HISTORY: Mother with DVT on anticoagulation, diabetes. Father with unknown form of cancer, d eceased. SOCIAL HISTORY: Denies any cigarette use. REVIEW OF SYSTEMS: GENERAL, CONSTITUTIONAL: Good appetite. Denies any fevers or chills. HEENT: No change in vision. Denies any difficulty swallowing. RESPIRATORY: As mentioned in HPI. Also, with recent cough productive of yellowish sputum. CARDIOVASCULAR: As mentioned in HPI. GASTROINTESTINAL: No nausea, vomiting, diarrhea. GENITOURINARY: Makes scant urine. Denies any dysuria or gross hematuria. MUSCULOSKELETAL: Denies any aches or pains in his joints or back. SKIN: Denies any itching, rashes, or bruising. NEUROLOGIC: Denies any bleeding. PSYCHIATRIC: Denies any depression or anxiety. PHYSICAL EXAMINATION: VITAL SIGNS: This morning, blood pressure 131/87, heart rate 93, respirations 18, O2 sat 96% on room air. GENERAL: No distress, conversing coherently in full sentences. HEENT: Moist mucous membranes, nonicteric. CHEST: Clear to auscultation bilaterally. No rales, no rhonchi, no wheezes. HEART: S1, S2 normal. No murmurs, no gallops, no rubs. ABDOMEN: Soft, nontender, nondistended. GENITOURINARY: No bladder distention. EXTREMITIES: No leg edema. Distal pulses no femoral or abdominal bruit, no carotid bruits. PSYCHIATRIC: Normal mood, normal affect. SKIN: Warm to touch. Good capillary refill. No cyanosis NEUROLOGIC: Bilateral 5 motor strength in bilateral upper and lower extremities. LABORATORY DATA this morning: WBC 10.1, hemoglobin 9.8, hematocrit 31.4, platelets 181. Chemistry p nataliia: Sodium 140, potassium 4.4, chloride 97, bicarbonate 28, BUN 50, creatinine 13.8, glucose 114, phosphorus 6.9. Troponin 0.41, albumin 4.8 yesterday. ASSESSMENT AND PLAN: 1. Saddle pulmonary embolism. No previous history, but does apparently have a family history with m other having had DVT/PE. No inciting factors for PE noted. The patient will need to be on anticoagu lation from renal point of review, can use either Coumadin and Eliquis. We will defer to hematology recommendations. 2. End-stage renal disease on hemodialysis. No recent issues pertaining to his outpatient hemodialy sis regimen. The patient does require longer hemodialysis times due to his large body mass. Current ly with stable volume and electrolyte status. No urgent indication for hemodialysis. Getting hemodi alysis today per routine on 2 K, 2.5 calcium, 34 bicarb dialysate over 3 hours and 45 minutes with ap proximately 2 liters ultrafiltration goal. 3. Hypertension, controlled. The patient on clonidine 0.2 mg and Coreg 12.5 mg b.i.d. on non-hemodi alysis days. Recommend to continue the same. 4. Chronic kidney disease, mineral bone disease. Phos elevated. The patient on Auryxia at home. W e will give PhosLo 1 tablet t.i.d. with meals while here. Continue Sensipar 30 mg daily. 5. Anemia. Hemoglobin below goal of 10-11 for Endstage renal disease patient. On Aranesp as outpa tient. We will adjust according to protocol. Сергей Ramirez MD cc: [id number] TT: 02/13/2017 20:32:38 Confirmation # [id number] Dictation # [id number] marely
--- NOTE | 2017-02-13 23:40 | CP.PCM.PN ---
Subjective - Date & Time of Evaluation Date of Evaluation: 02/13/17 Time of Evaluation: 12:00 - Subjective Subjective: B/ L extensive PE, currently on heparin drip. Shortness of breath has improved. Currently getting hemodialysis. BP controlled on current meds. Tachycardia improved. Echo done today. No leg swelling. Objective - Vital Signs/Intake and Output Vital Signs (last 24 hours): Temp Pulse Resp BP Pulse Ox 97.5 F L 121 H 23 136/87 96 02/13/17 16:00 02/13/17 23:20 02/13/17 23:20 02/13/17 23:00 02/13/17 23:20 Intake and Output: 02/13/17 02/14/17 18:59 06:59 Intake Total 218 100 Balance 218 100 - Medications Medications: Current Medications Benzonatate (Tessalon Perles) 100 mg PO TID [facility] Last Admin: 02/13/17 19:24 Dose: Not Given Carvedilol (Coreg) 12.5 mg PO QAM [facility] Last Admin: 02/13/17 19:21 Dose: Not Given Clonidine HCl (Catapres) 0.2 mg PO QAM [facility] Last Admin: 02/13/17 19:21 Dose: Not Given Guaifenesin/Dextromethorphan (Robitussin Dm) 5 ml PO Q4H PRN PRN Reason: Cough Heparin Sodium/Sodium Chloride (Heparin 48232 Units/250ml 1/2 Normal Saline) 25 ,000 units in 250 mls @ 17.227 mls/hr IV .[id number] [facility]; 18 UNITS/KG/HR PRN Reason: Protocol Last Titration: 02/13/17 21:45 Dose: 10 units/kg/hr, 9.571 mls/hr Insulin Human Regular (Humulin R Med) 0 units SC ACHS [facility] PRN Reason: Protocol Last Admin: 02/13/17 22:20 Dose: Not Given Pantoprazole Sodium (Protonix Ec Tab) 40 mg PO 0630 [facility] Last Admin: 02/13/17 06:29 Dose: 40 mg Warfarin Sodium (Coumadin) 2 mg PO 1800 [facility] PRN Reason: Protocol Last Admin: 02/13/17 19:22 Dose: 2 mg - Labs Labs: 02/13/17 06:50 02/13/17 06:50 PT 11.1 Seconds (9.9-11.8) 02/12/17 12:15 INR 1.03 (0.93-1.08) 02/12/17 12:15 APTT 107.6 Seconds (23.7-30.8) H* 02/13/17 20:05 - Constitutional Appears: Well, Non-toxic - Head Exam Head Exam: ATRAUMATIC, NORMAL INSPECTION, NORMOCEPHALIC - Eye Exam Eye Exam: Normal appearance, PERRL Pupil Exam: NORMAL ACCOMODATION - ENT Exam ENT Exam: Mucous Membranes Moist, Normal Oropharynx - Neck Exam Neck Exam: Normal Inspection - Respiratory Exam Respiratory Exam: Clear to Ausculation Bilateral, NORMAL BREATHING PATTERN - Cardiovascular Exam Cardiovascular Exam: Tachycardia, REGULAR RHYTHM, +S1, +S2 - GI/Abdominal Exam GI & Abdominal Exam: Soft, Normal Bowel Sounds - Extremities Exam Extremities Exam: Normal Capillary Refill, Normal Inspection - Back Exam Back Exam: NORMAL INSPECTION - Neurological Exam Neurological Exam: Alert, Awake, CN II-XII Intact, Normal Gait, Oriented x3 - Skin Skin Exam: Dry, Intact, Normal Color, Warm Assessment and Plan - Assessment and Plan (Free Text) Assessment: 1. B/L extensive PE. On heparin drip. PTT therapeutic. Continue heparin drip. Coumadin 2 mg to be given today. Creatinine is elevated. PT, INR will be monitored. 2. ESRD : on hemodialysis. Dialysed today. 3. DM II : sugars controlled on current meds. 4. Anemia : Hb/Hct stable. 5. CV : hemodynamically stable. Echo report awaited. Thank you Dr. Winchester for allowing us to participate in his care.
[2017-02-13] MEDS: guaiFENesin DM 100 mg-10 mg/5 ml UD PO PRN (23:43)
[2017-02-14] MEDS: guaiFENesin DM 100 mg-10 mg/5 ml UD PO PRN (06:06)
[2017-02-14 06:33] LABS: ADD MANUAL DIFF? NO
[2017-02-14 06:52] LABS: BASO # 0.03 K/mm3 (0.0-2.0); BASO % 0.3 % (0.0-3.0); EOS # 0.2 (0.0-0.7); EOS % 2.5 % (1.5-5.0); GRAN # 6.26 (1.4-6.5); GRAN % 67.3 % (50.0-68.0); HEMATOCRIT 32.9 % (42.0-52.0); LYMPH # 1.8 (1.2-3.4); LYMPH % 19.1 % (22.0-35.0); MEAN CELL VOLUME 98.5 fL (80.0-105.0); MEAN CORPUSCULAR HEMOGLOBIN 31.1 pg (25.0-35.0); MEAN CORPUSCULAR HGB CONC 31.6 g/dl (31.0-37.0); MEAN PLATELET VOLUME 12.4 fl (7.0-11.0); MONO % 10.8 % (1.0-6.0); PLATELET COUNT 192 10^3/uL (120.0-450.0); RED CELL DISTRIBUTION WIDTH 14.9 % (11.5-14.5); WHITE BLOOD COUNT 9.3 10^3/ul (4.5-11.0)
[2017-02-14] MEDS: Pantoprazole 40 mg EC Tab PO SCH (07:06)
[2017-02-14 07:10] LABS: CALCIUM 9.9 mg/dL (8.4-10.5); MAGNESIUM 2.3 mg/dL (1.7-2.2); POTASSIUM 3.8 mmol/L (3.6-5.0)
[2017-02-14] MEDS: Insulin Reg-MEDIUM-Coverage SC SCH ×4 (07:55→22:07)
--- NOTE | 2017-02-14 09:46 | PN ---
DATE: 02/14/2017 CARDIOLOGY FOLLOWUP SUBJECTIVE: The patient is without shortness of breath at rest. PHYSICAL EXAMINATION: VITAL SIGNS: Blood pressure is 133/82. The heart rate is sinus tachycardia approximately 100. NECK: Negative JVD. LUNGS: Without rales. HEART: Reveals S1, S2. EXTREMITIES: Without edema. LABORATORY DATA: Hemoglobin is 10.4. The creatinine is 10.5 with a potassium of 3.8. The PTT is 71 with an INR that is pending. IMPRESSION: 1. Acute pulmonary embolism. 2. End-stage renal disease. 3. Likely coagulopathy. 4. Diabetes mellitus. 5. Hypercholesterolemia. 6. Dyspnea, which is stable. PLAN: Given these findings, the patient will need to be on long-term anticoagulation. The patient c urrently is hemodynamically stable. Reece Lima MD cc: [id number] TT: 02/14/2017 08:58:02 Confirmation # [id number] Dictation # [id number] jn
[2017-02-14 10:45] LABS: INR 1.11 (0.93-1.08)
--- NOTE | 2017-02-14 12:45 | CP.PCM.PN ---
<Telma Orellana - Last Filed: 02/15/17 06:35> Subjective - Date & Time of Evaluation Date of Evaluation: 02/14/17 Time of Evaluation: 07:35 - Subjective Subjective: Medicine progress note for Dr Umana and Dr Winchester. Transferred from ICU, no overnight acute events. Patient reports the cough is improving. Patient denies cp, sob, n/v/d. Objective - Vital Signs/Intake and Output Vital Signs (last 24 hours): Temp Pulse Resp BP Pulse Ox 99.0 F 127 H 18 132/74 93 L 02/14/17 04:00 02/14/17 09:30 02/14/17 04:00 02/14/17 09:30 02/14/17 04:00 Intake and Output: 02/14/17 02/14/17 06:59 18:59 Intake Total 220 Balance 220 - Medications Medications: Current Medications Benzonatate (Tessalon Perles) 100 mg PO TID [facility] Last Admin: 02/14/17 09:30 Dose: 100 mg Carvedilol (Coreg) 12.5 mg PO QAM [facility] Last Admin: 02/14/17 09:30 Dose: 12.5 mg Clonidine HCl (Catapres) 0.2 mg PO QAM [facility] Last Admin: 02/14/17 09:29 Dose: 0.2 mg Guaifenesin/Dextromethorphan (Robitussin Dm) 5 ml PO Q4H PRN PRN Reason: Cough Last Admin: 02/14/17 06:06 Dose: 5 ml Heparin Sodium/Sodium Chloride (Heparin 70520 Units/250ml 1/2 Normal Saline) 25 ,000 units in 250 mls @ 17.227 mls/hr IV .[id number] [facility]; 18 UNITS/KG/HR PRN Reason: Protocol Last Titration: 02/13/17 21:45 Dose: 10 units/kg/hr, 9.571 mls/hr Insulin Human Regular (Humulin R Med) 0 units SC ACHS [facility] PRN Reason: Protocol Last Admin: 02/14/17 07:55 Dose: Not Given Pantoprazole Sodium (Protonix Ec Tab) 40 mg PO 0630 [facility] Last Admin: 02/14/17 07:06 Dose: 40 mg Warfarin Sodium (Coumadin) 2 mg PO 1800 [facility] PRN Reason: Protocol Last Admin: 02/13/17 19:22 Dose: 2 mg - Labs Labs: 02/14/17 05:30 02/14/17 05:30 PT 12.0 Seconds (9.9-11.8) H 02/14/17 10:00 INR 1.11 (0.93-1.08) H 02/14/17 10:00 APTT 71.6 Seconds (23.7-30.8) H* 02/14/17 05:30 - Constitutional Appears: No Acute Distress - Head Exam Head Exam: ATRAUMATIC, NORMAL INSPECTION, NORMOCEPHALIC - Eye Exam Eye Exam: EOMI, Normal appearance, PERRL. absent: Scleral icterus - ENT Exam ENT Exam: Mucous Membranes Moist - Neck Exam Neck Exam: Normal Inspection - Respiratory Exam Respiratory Exam: Clear to Ausculation Bilateral, NORMAL BREATHING PATTERN. absent: Rales, Rhonchi, Wheezes, Respiratory Distress, Stridor - Cardiovascular Exam Cardiovascular Exam: REGULAR RHYTHM, RRR, +S1, +S2. absent: Irregular Rhythm - GI/Abdominal Exam GI & Abdominal Exam: Soft, Normal Bowel Sounds. absent: Distended, Firm, Guarding, Rigid, Tenderness - Extremities Exam Extremities Exam: Normal Inspection - Back Exam Back Exam: NORMAL INSPECTION - Neurological Exam Neurological Exam: Alert, Awake, Oriented x3 - Psychiatric Exam Psychiatric exam: Normal Affect, Normal Mood - Skin Skin Exam: Dry, Intact, Normal Color, Warm Assessment and Plan - Assessment and Plan (Free Text) Assessment: Patient is a 51 y/o AAM with PMH of htn, diabetic nephropathy, ESRD ( HD M,W,F) , Anemia of chronic disease, hld, gastric ulcer, IDDM2 presented to the ED s/p syncope. On arrival patient was tachycardic, d-dimer was elevated, CTPA revealed b/l extensive PE. Patient remains hemodynamically stable. On heparin drip and Coumadin until therapeutic. Plan: 1) B/l extensive non occlusive PE- - Hemodynamically stable - on heparin drip - Coumadin 3 mg - INR 1.11 - hypercoagulable work up as outpatient - heme/on following 2) ESRD -with anemia - HD M, W , F - S/P hd yesterday 3) htn - clonidine and coreg 4) IDDM - ISSS - Accuchekc achs - carb controlled diet 5) DVT and gi prophylaxis: heparin drip for pe and coumadin po, and protonix. Patient seen, examined, will discuss with Dr Umana. <Francisco Javier Umana - Last Filed: 03/07/17 18:46> Objective - Vital Signs/Intake and Output Vital Signs (last 24 hours): Temp Pulse Resp BP Pulse Ox 98.3 F 110 H 20 128/76 96 02/15/17 19:52 02/15/17 19:52 02/15/17 19:52 02/15/17 19:52 02/15/17 19:52 - Labs Labs: 02/17/17 07:47 02/17/17 07:44 PT 15.3 Seconds (9.9-11.8) H 02/17/17 07:47 INR 1.42 (0.93-1.08) H 02/17/17 07:47 APTT 88.5 Seconds (23.7-30.8) H* 02/17/17 07:47 Attending/Attestation - Attestation I have personally seen and examined this patient.: Yes I have fully participated in the care of the patient.: Yes I have reviewed all pertinent clinical information, including history, physical exam and plan: Yes Notes (Text): 03/07/17 18:46 Medical record note made by the resident after discussion with my direction and input after the patient was personally seen and examined by me. I have reviewed the chart and agree that the record accurately reflects by personal performance of the history, physical exam, data review, and medical decision-making, in the course for the patient. I have also personally directed the plan of care.
--- NOTE | 2017-02-14 19:27 | PN ---
DATE: 02/14/2017 SUBJECTIVE: Currently, general condition improved. Shortness of breath has markedly improved. He is currently sitting on the bed, in no acute distress. Denies any chest pain. Able to ambulate in the room. He was admitted with bilateral extensive PE. He still has tachycardia with heart rate of 127 per minute. Hemodynamically stable. He has end-stage renal disease. He was dialyzed yesterday. Creatinine is elevated to 10 today. He was started on Coumadin 2 mg yesterday. PTT is therapeutic on heparin drip. PT is still supratherapeutic. Appetite is good. REVIEW OF SYSTEMS: As per HPI. The rest of 12-point review of systems reviewed and negative. MEDICATIONS: Coreg 12.5 mg daily, Robitussin p.r.n., heparin drip, insulin sliding scale, Protonix 40 mg daily, Coumadin 2 mg. PHYSICAL EXAMINATION GENERAL: Comfortable in bed, in no acute distress, tachycardia plus. VITAL SIGNS: Heart rate is 127 per minute, repeat was 95; blood pressure 132/74 , respiratory rate 19 per minute, on oxygen by nasal cannula, oxygen saturation 93% with oxygen by nasal cannula. HEENT: Normal. NECK: Lymphadenopathy none. CHEST: Air entry present, equal bilateral. No added sound. CARDIOVASCULAR: Tachycardia plus. S1, S2 normal. ABDOMEN: Soft, nontender, no hepatosplenomegaly. EXTREMITIES: No edema. SKIN: No petechia, no rashes. CENTRAL NERVOUS SYSTEM: Alert, oriented x 3, no focal sensory or motor deficit. SPINE: Nontender. LABORATORY DATA: White count 9.3, hemoglobin 10.4, hematocrit 32.9, MCV 98, platelet count 192. Sodium 139, potassium 3.8, creatinine 10.5. Electrolytes normal. Magnesium 2.3. Troponin 0.41 yesterday. INR 1.1, PT 12, PTT 71. ASSESSMENT AND PLAN: 1. Bilateral extensive pulmonary embolism. 2. End-stage renal disease on hemodialysis. 3. Hypertension. 4. Diabetes mellitus type 2. PLAN: 1. Will continue heparin drip. Will give 4 mg of Coumadin today. Thrombophilia workup will be done as an outpatient. If creatinine is still elevated, he will need lower doses of Coumadin to attain therapeutic levels. Would monitor PT/INR daily and continue heparin drip until Coumadin is therapeutic. He will need a few days of heparin drip for extensive deep venous thrombosis. 2. End-stage renal disease, currently on hemodialysis, dialyzed yesterday. Creatinine is 10.5. Electrolytes normal. 3. Diabetes mellitus. Currently getting insulin coverage. 4. Blood work reviewed. Hemoglobin and hematocrit stable. 5. Pulmonary. Oxygen saturation 96% on oxygen by nasal cannula, symptomatic markedly improved shortness of breath. Echocardiogram was done, report awaited. 6. Cardiovascular. Hemodynamically stable. Cardiology following. Thank you, Dr. Winchester, for allowing us to participate in the patient's care. Will discuss with the staff nurse. Brooke Escobar MD cc: [id number] TT: 02/14/2017 19:27:15 Confirmation # [id number] Dictation # [id number] fernando HANSEN
--- NOTE | 2017-02-14 19:42 | CARD ---
APPROVED REPORT EXAM: Two-dimensional and M-mode echocardiogram with Doppler and color Doppler. INDICATION RIGHT VENTRICULAR FAILURE 2D DIMENSIONS Left Atrium (2D)3.6 (1.6-4.0cm)IVSd1.2 (0.7-1.1cm) LVDd4.3 (3.9-5.9cm)PWd1.2 (0.7-1.1cm) LVDs2.6 (2.5-4.0cm)FS (%) 38.3 % LVEF (%)68.9 (>50%) M-Mode DIMENSIONS Aortic Root3.30 (2.2-3.7cm)Aortic Cusp Exc.1.90 (1.5-2.0cm) Aortic Valve AoV Peak Avvbloji200.0cm/Citlaly Peak GR.13mmHg Mitral Valve MV E Izcfytyu72.1cm/sMV A Nmtldrcl569.0cm/sE/A ratio0.7 TDI E/Lateral E'0.0E/Medial E'0.0 Tricuspid Valve TR Peak Ojsgmxkf549hn/sRAP [id number] Peak Gr.20mmHg [id number] LEFT VENTRICLE The left ventricle is normal size. There is mild concentric left ventricular hypertrophy. The left ventricular function is normal.EF-65-70% There is normal LV segmental wall motion. Transmitral Doppler flow pattern is Grade III-reversible restrictive diastolic dysfunction. No left ventricle thrombus noted on this study. There is no ventricular septal defect visualized. There is no left ventricular aneurysm. There is no mass noted in the left ventricle. RIGHT VENTRICLE The right ventricle is mildly dilated. There is normal right ventricular wall thickness. Systolic function is mildly reduced. ATRIA The left atrium is mildly dilated. The right atrium size is normal. The interatrial septum is intact with no evidence for an atrial septal defect. AORTIC VALVE The aortic valve is thickened but opens well. The aortic valve is mildly to moderately sclerotic. There is mild to moderate aortic regurgitation. There is no aortic valvular stenosis. There is no aortic valvular vegetation. MITRAL VALVE The mitral valve is thickened but opens well. Mitral annular calcification is moderate. Mitral regurgitation is mild. There is no mitral valve stenosis. There is no evidence of mitral valve prolapse. TRICUSPID VALVE The tricuspid valve leaflets are thickened , but open well. There is mild tricuspid regurgitation.RVSP-31 mmof Hg. There is no tricuspid valve stenosis. There is no tricuspid valve prolapse or vegetation. PULMONIC VALVE The pulmonary valve is normal in structure. There is mild pulmonic valvular regurgitation. There is no pulmonic valvular stenosis. GREAT VESSELS The aortic root is normal in size. The ascending aorta is normal in size. The pulmonary artery is normal. The IVC is normal in size and collapses >50% with inspiration. PERICARDIAL EFFUSION There is no pleural effusion. There is no pericardial effusion. <Conclusion> The left ventricle is normal size. There is mild concentric left ventricular hypertrophy. The left ventricular function is normal.EF-65-70% There is mild to moderate aortic regurgitation. There is mild to moderate aortic regurgitation. Mitral regurgitation is mild. There is mild tricuspid regurgitation.RVSP-31 mmof Hg. The IVC is normal in size and collapses >50% with inspiration. There is no pericardial effusion. No vegetation or thrombus noted.
[2017-02-15 00:36] VITALS: RESP 20
[2017-02-15 06:55] LABS: ADD MANUAL DIFF? NO
[2017-02-15] MEDS: Pantoprazole 40 mg EC Tab PO SCH (07:00)
[2017-02-15 07:06] LABS: BASO # 0.02 K/mm3 (0.0-2.0); BASO % 0.2 % (0.0-3.0); EOS # 0.3 (0.0-0.7); EOS % 3.1 % (1.5-5.0); GRAN # 5.14 (1.4-6.5); GRAN % 63.6 % (50.0-68.0); HEMATOCRIT 30.1 % (42.0-52.0); LYMPH # 1.8 (1.2-3.4); LYMPH % 22.2 % (22.0-35.0); MEAN CORPUSCULAR HEMOGLOBIN 30.9 pg (25.0-35.0); MEAN CORPUSCULAR HGB CONC 31.6 g/dl (31.0-37.0); MEAN PLATELET VOLUME 12.4 fl (7.0-11.0); MONO # 0.9 (0.1-0.6); MONO % 10.9 % (1.0-6.0); PLATELET COUNT 177 10^3/uL (120.0-450.0); RED CELL DISTRIBUTION WIDTH 14.8 % (11.5-14.5); WHITE BLOOD COUNT 8.1 10^3/ul (4.5-11.0)
[2017-02-15 07:18] LABS: INR 1.04 (0.93-1.08); PARTIAL THROMBOPLASTIN TIME 42.2 Seconds (23.7-30.8)
[2017-02-15 07:30] LABS: CALCIUM 9.5 mg/dL (8.4-10.5); MAGNESIUM 2.5 mg/dL (1.7-2.2); POTASSIUM 3.8 mmol/L (3.6-5.0)
[2017-02-15] MEDS: Insulin Reg-MEDIUM-Coverage SC SCH ×3 (09:38→16:52)
--- NOTE | 2017-02-15 09:48 | CP.PCM.PN ---
<Telma Orellana - Last Filed: 02/15/17 17:15> Subjective - Date & Time of Evaluation Date of Evaluation: 02/15/17 Time of Evaluation: 07:15 - Subjective Subjective: Medicine progress note for Dr Winchester and Dr Umana Patient with no acute events. Patient remains stable. Patient due for HD today. Denies cp, sob, headache or dizziness. Denies fever and chills. Admits to cough. Objective - Vital Signs/Intake and Output Vital Signs (last 24 hours): Temp Pulse Resp BP Pulse Ox 98 F 97 H 20 113/68 93 L 02/15/17 06:00 02/15/17 06:00 02/15/17 06:00 02/15/17 06:00 02/14/17 04:00 Intake and Output: 02/15/17 02/15/17 06:59 18:59 Intake Total 360 Balance 360 - Medications Medications: Current Medications Benzonatate (Tessalon Perles) 100 mg PO TID [facility] Last Admin: 02/15/17 09:38 Dose: 100 mg Carvedilol (Coreg) 12.5 mg PO QAM [facility] Last Admin: 02/14/17 09:30 Dose: 12.5 mg Guaifenesin/Dextromethorphan (Robitussin Dm) 5 ml PO Q4H PRN PRN Reason: Cough Last Admin: 02/14/17 06:06 Dose: 5 ml Heparin Sodium/Sodium Chloride (Heparin 89362 Units/250ml 1/2 Normal Saline) 25 ,000 units in 250 mls @ 17.227 mls/hr IV .[id number] [facility]; 18 UNITS/KG/HR PRN Reason: Protocol Last Titration: 02/13/17 21:45 Dose: 10 units/kg/hr, 9.571 mls/hr Insulin Human Regular (Humulin R Med) 0 units SC ACHS [facility] PRN Reason: Protocol Last Admin: 02/15/17 09:38 Dose: Not Given Pantoprazole Sodium (Protonix Ec Tab) 40 mg PO 0630 [facility] Last Admin: 02/15/17 07:00 Dose: 40 mg Warfarin Sodium (Coumadin) 5 mg PO 1800 [facility] PRN Reason: Protocol - Labs Labs: 02/15/17 06:30 02/15/17 06:30 PT 11.2 Seconds (9.9-11.8) 02/15/17 06:30 INR 1.04 (0.93-1.08) 02/15/17 06:30 APTT 42.2 Seconds (23.7-30.8) H 02/15/17 06:30 - Constitutional Appears: No Acute Distress - Head Exam Head Exam: ATRAUMATIC, NORMAL INSPECTION, NORMOCEPHALIC - Eye Exam Eye Exam: EOMI, Normal appearance, PERRL. absent: Scleral icterus - ENT Exam ENT Exam: Mucous Membranes Moist - Neck Exam Neck Exam: Normal Inspection - Respiratory Exam Respiratory Exam: Clear to Ausculation Bilateral, NORMAL BREATHING PATTERN. absent: Rales, Rhonchi, Wheezes, Respiratory Distress, Stridor - Cardiovascular Exam Cardiovascular Exam: REGULAR RHYTHM, RRR, +S1, +S2. absent: Murmur - GI/Abdominal Exam GI & Abdominal Exam: Soft, Normal Bowel Sounds. absent: Distended, Firm, Guarding, Rigid, Tenderness - Extremities Exam Extremities Exam: Normal Inspection - Back Exam Back Exam: NORMAL INSPECTION - Neurological Exam Neurological Exam: Alert, Awake, Oriented x3 - Psychiatric Exam Psychiatric exam: Normal Affect, Normal Mood - Skin Skin Exam: Dry, Intact, Normal Color, Warm Assessment and Plan - Assessment and Plan (Free Text) Assessment: Patient is a 51 y/o with pmh of htn, diabetic nephropathy, ESRD ( HD M,W,F), Anemia of chronic disease, hld, gastric ulcer, IDDM2 presented to the ED s/p syncope, and was found to have b/l extensive PE on CTPA. On heparin drip and Coumadin until therapeutic. Plan: 1) B/l non occlusive saddle embolism - on heparin drip until therapeutic INR - INR today 1.04 - will continue coumadin - hypercoagulable work up as outpatient - heme/onc following 2) ESRD -with anemia - HD M, W , F - HD today 3) htn - clonidine and coreg 4) IDDM - ISSS - Accuchekc achs - carb controlled diet 5) DVT and gi prophylaxis: heparin drip for pe and coumadin po, and protonix. Patient seen, examined, will discuss with Dr Umana. <Francisco Javier Umana - Last Filed: 03/07/17 19:24> Objective - Vital Signs/Intake and Output Vital Signs (last 24 hours): Temp Pulse Resp BP Pulse Ox 98.3 F 110 H 20 128/76 96 02/15/17 19:52 02/15/17 19:52 02/15/17 19:52 02/15/17 19:52 02/15/17 19:52 - Labs Labs: 02/17/17 07:47 02/17/17 07:44 PT 15.3 Seconds (9.9-11.8) H 02/17/17 07:47 INR 1.42 (0.93-1.08) H 02/17/17 07:47 APTT 88.5 Seconds (23.7-30.8) H* 02/17/17 07:47 Attending/Attestation - Attestation I have personally seen and examined this patient.: Yes I have fully participated in the care of the patient.: Yes I have reviewed all pertinent clinical information, including history, physical exam and plan: Yes Notes (Text): 03/07/17 19:24 Medical record note made by the resident after discussion with my direction and input after the patient was personally seen and examined by me. I have reviewed the chart and agree that the record accurately reflects by personal performance of the history, physical exam, data review, and medical decision-making, in the course for the patient. I have also personally directed the plan of care.
[2017-02-15] MEDS ORDERED: Darbepoetin Alfa 40 mcg/ml Inj IVP ONE (11:37)
--- NOTE | 2017-02-15 11:53 | PN ---
DATE: 02/15/2017 SUBJECTIVE: The patient is currently undergoing hemodialysis. He denies chest pain or shortness of breath. PHYSICAL EXAMINATION: VITAL SIGNS: Blood pressure 113/68, heart rate 97, temperature 98, respirations 20. HEENT: Pale conjunctivae. CHEST: Clear. HEART: S1, S2 regular. EXTREMITIES: No edema. LABORATORIES: Hemoglobin and hematocrit 9.53 and 30.1, white count and platelet count are within nor mal limits. Today's BUN and creatinine prior to hemodialysis are 54 and 13.7, potassium 3.8, magnesi um is 2.5. PTT 42.2, INR is 1.04. Lower extremity ultrasound: No sonographic evidence for DVT in t he visualized segments. CT angio of the chest done on 02/12 revealed extensive bilateral pulmonary e mbolism. Echocardiographic study revealed mild to moderate aortic insufficiency, right ventricle is mildly dilated with normal wall thickness, and mildly reduced ejection fraction. ASSESSMENT: 1. Bilateral pulmonary embolism. 2. Hypertension, diabetes mellitus. 3. End-stage renal disease on hemodialysis. 4. Mildly dilated right ventricle with mildly depressed ejection fraction of the right ventricle. RECOMMENDATIONS: Continue current intravenous heparin and therapeutic regimen. Coumadin 5 mg will b e administered today. Continue Coreg at 12.5 mg twice a day. Results of lab workup for hypercoagula ble state is still pending. Dudley Carr MD cc: [id number] TT: 02/15/2017 11:52:31 Confirmation # [id number] Dictation # [id number] marely
--- NOTE | 2017-02-15 13:31 | PN ---
DATE: 02/15/2017 A 51-year-old male with past medical history of hypertension, diabetes, ESRD on hemodialysis, admitte d with saddle pulmonary emboli. Nephrology following for routine hemodialysis. The patient reports feeling well, ambulating without shortness of breath and without supplemental oxy gen needed. PHYSICAL EXAMINATION: VITAL SIGNS: This morning, blood pressure 113/68, heart rate 97, respirations 20, temperature 98.0. GENERAL: No distress, conversing coherently in full sentences. HEENT: Moist mucous membranes. Nonicteric. CHEST: Clear to auscultation bilaterally. No rales, no rhonchi, no wheezes. HEART: S1, S2 normal, no murmurs, no gallops, no rubs. ABDOMEN: Soft, nontender, nondistended. EXTREMITIES: No leg edema. SKIN: Warm, no cyanosis. PSYCHIATRIC: Normal mood, normal affect. LABORATORY DATA: This morning, CBC: WBC 8.1, hemoglobin 9.5, hematocrit 30.1, platelets 177. Chemi stry panel: Sodium 139, potassium 3.8, chloride 92, bicarbonate 32, BUN 54, creatinine 13.7, calcium 9.5. ASSESSMENT: 1. Acute pulmonary embolism. The patient with family history of deep venous thrombosis/pulmonary em bolism, being worked up by hematology for hypercoagulable state. The patient is currently on heparin drip as bridge to Coumadin. INR still subtherapeutic. The patient awaiting therapeutic INR before can be discharged. INR to be followed by PCP. 2. End-stage renal disease on hemodialysis. The patient seen on hemodialysis today, getting routine session. Does not have excessive weight gains between dialysis sessions and blood pressure has been relatively well controlled. We will only aim for about 2 liters ultrafiltration. 3. Hypertension, controlled on Coreg 12.5 mg b.i.d., continue. The patient is relatively euvolemic o n exam. 4. Anemia. Hemoglobin below goal. The patient being given Aranesp 40 mcg today, increased from 25 mcg per week that he is usually on. 5. Chronic kidney disease, mineral bone disease. The patient with hyperphosphatemia, is on Auryxia as a phosphorus binder at home, which is not available as an inpatient. We will give Phos-Lo 1 table t t.i.d. with meals. Сергей Ramirez MD cc: [id number] TT: 02/15/2017 13:30:33 Confirmation # [id number] Dictation # [id number] rn
[2017-02-15 19:54] VITALS: BP 128/76; PULSE 110; TEMP 98.3; O2SAT 96
[2017-02-15] MEDS ORDERED: Heparin25000 units/250ml 1/2NS 25,000 UNITS/250 ML BAG IV PRN ×2 (20:11→20:15)
--- NOTE | 2017-02-15 23:15 | CP.PCM.PN ---
Subjective - Date & Time of Evaluation Date of Evaluation: 02/15/17 Time of Evaluation: 18:00 - Subjective Subjective: DATE: 02/15/2017 SUBJECTIVE: Currently, general condition improved. Shortness of breath has markedly improved. He is currently sitting on the bed, in no acute distress. Denies any chest pain. Able to ambulate in the room. He was admitted with bilateral extensive PE. He still has tachycardia with heart rate of 127 per minute. Hemodynamically stable. He has end-stage renal disease. Dialyized today. PT still subtherapeutic. REVIEW OF SYSTEMS: As per HPI. The rest of 12-point review of systems reviewed and negative. MEDICATIONS: Coreg 12.5 mg daily, Robitussin p.r.n., heparin drip, insulin sliding scale, Protonix 40 mg daily, Coumadin 2 mg. PHYSICAL EXAMINATION GENERAL: Comfortable in bed, in no acute distress, tachycardia plus. VITAL SIGNS: reviewed. HEENT: Normal. NECK: Lymphadenopathy none. CHEST: Air entry present, equal bilateral. No added sound. CARDIOVASCULAR: Tachycardia plus. S1, S2 normal. ABDOMEN: Soft, nontender, no hepatosplenomegaly. EXTREMITIES: No edema. SKIN: No petechia, no rashes. CENTRAL NERVOUS SYSTEM: Alert, oriented x 3, no focal sensory or motor deficit. SPINE: Nontender. LABORATORY DATA: reviewed ASSESSMENT AND PLAN: 1. Bilateral extensive pulmonary embolism. 2. End-stage renal disease on hemodialysis. 3. Hypertension. 4. Diabetes mellitus type 2. PLAN: 1. Will continue heparin drip. Will give 5 mg of Coumadin today. Thrombophilia workup will be done as an outpatient. If creatinine is still elevated, he will need lower doses of Coumadin to attain therapeutic levels. Would monitor PT/INR daily and continue heparin drip until Coumadin is therapeutic. He will need a few days of heparin drip for extensive deep venous thrombosis. 2. End-stage renal disease, currently on hemodialysis, dialyzed today. 3. Diabetes mellitus. Currently getting insulin coverage. 4. Blood work reviewed. Hemoglobin and hematocrit stable. 5. Pulmonary. shortness of breath improved. ECHO- no RV strain. 6. Cardiovascular. Hemodynamically stable. Cardiology following. Thank you, Dr. Winchester, for allowing us to participate in the patient's care. Will discuss with the staff nurse. Brooke Escobar MD Objective - Vital Signs/Intake and Output Vital Signs (last 24 hours): Temp Pulse Resp BP Pulse Ox 98.3 F 110 H 20 128/76 96 02/15/17 19:52 02/15/17 19:52 02/15/17 19:52 02/15/17 19:52 02/15/17 19:52 Intake and Output: 02/15/17 02/16/17 18:59 06:59 Intake Total 360 Balance 360 - Labs Labs: 02/15/17 06:30 02/15/17 06:30 PT 11.2 Seconds (9.9-11.8) 02/15/17 06:30 INR 1.04 (0.93-1.08) 02/15/17 06:30 APTT 61.4 Seconds (23.7-30.8) H 02/15/17 15:56
--- NOTE | 2017-02-16 06:45 | CP.PCM.DIS ---
<MichelinebertTelma eaton - Last Filed: 02/16/17 18:32> Provider - Provider Date of Admission: 02/12/17 13:42 Attending physician: Jovanny Winchester MD Primary care physician: Marie De Souza MD Consults: heme/onc Time Spent in preparation of Discharge (in minutes): 45 Diagnosis - Discharge Diagnosis (1) ESRD (end stage renal disease) on dialysis Status: Acute (2) Diabetes Status: Acute (3) Pulmonary emboli Status: Acute (4) Anemia in chronic kidney disease (CKD) Status: Acute Hospital Course - Lab Results Lab Results: Micro Results 02/12/17 16:52 Naris MRSA Culture (Admit) - Final MRSA NOT DETECTED Most Recent Lab Values WBC 8.1 10^3/ul (4.5-11.0) 02/15/17 06:30 RBC 3.07 10^6/uL (3.5-6.1) L 02/15/17 06:30 Hgb 9.5 gm/dL (14.0-18.0) L 02/15/17 06:30 Hct 30.1 % (42.0-52.0) L 02/15/17 06:30 MCV 98.0 fL (80.0-105.0) 02/15/17 06:30 MCH 30.9 pg (25.0-35.0) 02/15/17 06:30 MCHC 31.6 g/dl (31.0-37.0) 02/15/17 06:30 RDW 14.8 % (11.5-14.5) H 02/15/17 06:30 Plt Count 177 10^3/uL (120.0-450.0) 02/15/17 06:30 MPV 12.4 fl (7.0-11.0) H 02/15/17 06:30 Gran % 63.6 % (50.0-68.0) 02/15/17 06:30 Lymph % (Auto) 22.2 % (22.0-35.0) 02/15/17 06:30 [place] % (Auto) 10.9 % (1.0-6.0) H 02/15/17 06:30 Eos % (Auto) 3.1 % (1.5-5.0) 02/15/17 06:30 Baso % (Auto) 0.2 % (0.0-3.0) 02/15/17 06:30 Gran # 5.14 (1.4-6.5) 02/15/17 06:30 Lymph # 1.8 (1.2-3.4) 02/15/17 06:30 [place] # 0.9 (0.1-0.6) H 02/15/17 06:30 Eos # 0.3 (0.0-0.7) 02/15/17 06:30 Baso # 0.02 K/mm3 (0.0-2.0) 02/15/17 06:30 PT 11.2 Seconds (9.9-11.8) 02/15/17 06:30 INR 1.04 (0.93-1.08) 02/15/17 06:30 APTT 61.4 Seconds (23.7-30.8) H 02/15/17 15:56 D-Dimer, Quantitative 8.43 mg/L FEU (0-0.50) H 02/12/17 12:15 Sodium 139 mmol/L (132-148) 02/15/17 06:30 Potassium 3.8 mmol/L (3.6-5.0) 02/15/17 06:30 Chloride 92 mmol/L (98-107) L 02/15/17 06:30 Carbon Dioxide 32 mmol/L (21-33) 02/15/17 06:30 Anion Gap 19 (10-20) 02/15/17 06:30 BUN 54 mg/dL (7-21) H 02/15/17 06:30 Creatinine 13.7 mg/dL (0.5-1.4) H* 02/15/17 06:30 Est GFR ( Amer) 5 02/15/17 06:30 Est GFR (Non-Af Amer) 4 02/15/17 06:30 POC Glucose (mg/dL) 101 mg/dL (65-110) 02/15/17 21:36 Random Glucose 97 mg/dL (70-110) 02/15/17 06:30 Calcium 9.5 mg/dL (8.4-10.5) 02/15/17 06:30 Phosphorus 6.9 mg/dL (2.5-4.5) H 02/13/17 06:50 Magnesium 2.5 mg/dL (1.7-2.2) H 02/15/17 06:30 Total Bilirubin 1.0 mg/dL (0.2-1.3) 02/12/17 12:15 AST 22 U/L (15-59) 02/12/17 12:15 ALT 17 U/L (7-56) 02/12/17 12:15 Alkaline Phosphatase 90 U/L (38-133) 02/12/17 12:15 Lactate Dehydrogenase 511 U/L (333-699) 02/12/17 12:15 Total Creatine Kinase 115 U/L (35-230) 02/12/17 12:15 Troponin I 0.41 ng/mL H* D 02/13/17 06:50 NT-Pro-B Natriuret Pep 500 pg/mL (0-450) H 02/12/17 15:32 Total Protein 9.1 g/dL (5.8-8.3) H 02/12/17 12:15 Albumin 4.8 g/dL (3.0-4.8) 02/12/17 12:15 Globulin 4.3 gm/dL 02/12/17 12:15 Albumin/Globulin Ratio 1.1 (1.1-1.8) 02/12/17 12:15 Lipase 143 U/L (23-300) 02/12/17 12:15 - Hospital Course Hospital Course: Patient is a 51 y/o with pmh of htn, diabetic nephropathy, ESRD ( HD M,W,F), Anemia of chronic disease, hld, gastric ulcer, IDDM2 presented to the ED s/p syncope, and was found to have b/l extensive PE on CTPE. Patient was hypoxeic, tachycardic and tachypneic on arrival to the ED. Basic labs with with elevated bun/creat, d-dimer was elevated. Lower extremities u/s was glenda. Troponin was elevated, but trended down. Echo revealed no right sided heart strain. Patient was hemodynamically stable, thus was started on heparin drip bridged with Coumadin. Patient to be discharged to TCU until therapeutic. - Date & Time of H&P Date of H&P: 02/12/17 Time of H&P: 15:53 Discharge Exam - Head Exam Head Exam: ATRAUMATIC, NORMAL INSPECTION, NORMOCEPHALIC Additional comments: Please today's progress note for complete physical exam. Discharge Plan - Follow Up Plan Condition: SERIOUS Disposition: TRANSF TO SNF Instructions: Chest Pain (DC), Chest Pain (GEN), Pulmonary Embolism (DC), Pulmonary Embolism (GEN) Referrals: Marie De Souza MD [Primary Care Provider] - <Farncisco Javier Umana - Last Filed: 03/08/17 18:39> Provider - Provider Date of Admission: 02/12/17 13:42 Attending physician: Jovanny Winchester MD Primary care physician: Marie De Souza MD Hospital Course - Lab Results Lab Results: Micro Results 02/12/17 16:52 Naris MRSA Culture (Admit) - Final MRSA NOT DETECTED Most Recent Lab Values WBC 9.4 10^3/ul (4.5-11.0) D 02/17/17 07:47 RBC 3.02 10^6/uL (3.5-6.1) L 02/17/17 07:47 Hgb 9.5 gm/dL (14.0-18.0) L 02/17/17 07:47 Hct 29.3 % (42.0-52.0) L 02/17/17 07:47 MCV 97.0 fL (80.0-105.0) 02/17/17 07:47 MCH 31.5 pg (25.0-35.0) 02/17/17 07:47 MCHC 32.4 g/dl (31.0-37.0) 02/17/17 07:47 RDW 14.6 % (11.5-14.5) H 02/17/17 07:47 Plt Count 198 10^3/uL (120.0-450.0) 02/17/17 07:47 MPV 11.6 fl (7.0-11.0) H 02/17/17 07:47 Gran % 63.6 % (50.0-68.0) 02/15/17 06:30 Lymph % (Auto) 22.2 % (22.0-35.0) 02/15/17 06:30 [place] % (Auto) 10.9 % (1.0-6.0) H 02/15/17 06:30 Eos % (Auto) 3.1 % (1.5-5.0) 02/15/17 06:30 Baso % (Auto) 0.2 % (0.0-3.0) 02/15/17 06:30 Gran # 5.14 (1.4-6.5) 02/15/17 06:30 Lymph # 1.8 (1.2-3.4) 02/15/17 06:30 [place] # 0.9 (0.1-0.6) H 02/15/17 06:30 Eos # 0.3 (0.0-0.7) 02/15/17 06:30 Baso # 0.02 K/mm3 (0.0-2.0) 02/15/17 06:30 PT 15.3 Seconds (9.9-11.8) H 02/17/17 07:47 INR 1.42 (0.93-1.08) H 02/17/17 07:47 APTT 88.5 Seconds (23.7-30.8) H* 02/17/17 07:47 D-Dimer, Quantitative 8.43 mg/L FEU (0-0.50) H 02/12/17 12:15 Sodium 140 mmol/L (132-148) 02/17/17 07:44 Potassium 3.9 mmol/L (3.6-5.0) 02/17/17 07:44 Chloride 97 mmol/L (98-107) L 02/17/17 07:44 Carbon Dioxide 26 mmol/L (21-33) 02/17/17 07:44 Anion Gap 21 (10-20) H 02/17/17 07:44 BUN 54 mg/dL (7-21) H 02/17/17 07:44 Creatinine 13.8 mg/dL (0.5-1.4) H* 02/17/17 07:44 Est GFR ( Amer) 5 02/17/17 07:44 Est GFR (Non-Af Amer) 4 02/17/17 07:44 POC Glucose (mg/dL) 124 mg/dL (65-110) H 02/16/17 05:23 Random Glucose 113 mg/dL (70-110) H 02/17/17 07:44 Calcium 9.4 mg/dL (8.4-10.5) 02/17/17 07:44 Phosphorus 5.5 mg/dL (2.5-4.5) H 02/17/17 07:44 Magnesium 2.4 mg/dL (1.7-2.2) H 02/17/17 07:44 Total Bilirubin 1.0 mg/dL (0.2-1.3) 02/12/17 12:15 AST 22 U/L (15-59) 02/12/17 12:15 ALT 17 U/L (7-56) 02/12/17 12:15 Alkaline Phosphatase 90 U/L (38-133) 02/12/17 12:15 Lactate Dehydrogenase 511 U/L (333-699) 02/12/17 12:15 Total Creatine Kinase 115 U/L (35-230) 02/12/17 12:15 Troponin I 0.41 ng/mL H* D 02/13/17 06:50 NT-Pro-B Natriuret Pep 500 pg/mL (0-450) H 02/12/17 15:32 Total Protein 9.1 g/dL (5.8-8.3) H 02/12/17 12:15 Albumin 4.8 g/dL (3.0-4.8) 02/12/17 12:15 Globulin 4.3 gm/dL 02/12/17 12:15 Albumin/Globulin Ratio 1.1 (1.1-1.8) 02/12/17 12:15 Lipase 143 U/L (23-300) 02/12/17 12:15 Attending/Attestation - Attestation I have personally seen and examined this patient.: Yes I have fully participated in the care of the patient.: Yes I have reviewed all pertinent clinical information, including history, physical exam and plan: Yes Notes (Text): 03/08/17 18:39 Medical record note made by the resident after discussion with my direction and input after the patient was personally seen and examined by me. I have reviewed the chart and agree that the record accurately reflects by personal performance of the history, physical exam, data review, and medical decision-making, in the course for the patient. I have also personally directed the plan of care.
--- NOTE | 2017-02-16 06:45 | CP.PCM.HP ---
Past Patient History - Infectious Disease Hx of Infectious Diseases: None - Tetanus Immunizations Tetanus Immunization: Unknown - Past Medical History & Family History Past Medical History?: Yes - Past Social History Smoking Status: Never Smoked Alcohol: None Drugs: Denies Home Situation {Lives}: With Family - CARDIAC Hx Hypercholesterolemia: Yes Hx Pacemaker: No Hx Peripheral Vascular Disease: Yes - PULMONARY Hx Respiratory Disorders: Yes Hx Pneumonia: Yes - NEUROLOGICAL Hx Neurological Disorder: Yes - HEENT Hx HEENT Problems: No - RENAL Hx Chronic Kidney Disease: Yes Hx Dialysis: Yes (MWF) Hx Renal Failure: Yes Other/Comment: Pt states his kidneys function at 30% - ENDOCRINE/METABOLIC Hx Endocrine Disorders: Yes Hx Diabetes Mellitus Type 1: Yes Hx Diabetes Mellitus Type 2: Yes - HEMATOLOGICAL/ONCOLOGICAL Hx Blood Disorders: Yes Hx Anemia: Yes - INTEGUMENTARY Hx Dermatological Problems: No - MUSCULOSKELETAL/RHEUMATOLOGICAL Hx Musculoskeletal Disorders: No - GASTROINTESTINAL Hx Gastrointestinal Disorders: Yes - GENITOURINARY/GYNECOLOGICAL Hx Genitourinary Disorders: No - PSYCHIATRIC Hx Emotional Abuse: No Hx Physical Abuse: No - SURGICAL HISTORY Other/Comment: Kidney Bx - ANESTHESIA Hx Anesthesia: Yes Hx Anesthesia Reactions: No Hx Malignant Hyperthermia: No Meds Allergies/Adverse Reactions: Allergies Allergy/AdvReac Type Severity Reaction Status Date / Time No Known Allergies Allergy Verified 01/18/17 11:56 Results - Vital Signs Recent Vital Signs: Last Vital Signs Temp 98.3 F 02/15/17 19:52 Pulse 110 H 02/15/17 19:52 Resp 20 02/15/17 19:52 BP 128/76 02/15/17 19:52 Pulse Ox 96 02/15/17 19:52 - Labs Result Diagrams: 02/15/17 06:30 02/15/17 06:30 Labs: Laboratory Results - last 24 hr 02/15/17 02/15/17 02/15/17 06:30 06:30 06:30 WBC 8.1 RBC 3.07 L Hgb 9.5 L Hct 30.1 L MCV 98.0 MCH 30.9 MCHC 31.6 RDW 14.8 H Plt Count 177 MPV 12.4 H Gran % 63.6 Lymph % (Auto) 22.2 [place] % (Auto) 10.9 H Eos % (Auto) 3.1 Baso % (Auto) 0.2 Gran # 5.14 Lymph # 1.8 [place] # 0.9 H Eos # 0.3 Baso # 0.02 PT 11.2 INR 1.04 APTT 42.2 H Sodium 139 Potassium 3.8 Chloride 92 L Carbon Dioxide 32 Anion Gap 19 BUN 54 H Creatinine 13.7 H* Est GFR ( Amer) 5 Est GFR (Non-Af Amer) 4 POC Glucose (mg/dL) Random Glucose 97 Calcium 9.5 Magnesium 2.5 H 02/15/17 02/15/17 15:56 21:36 WBC RBC Hgb Hct MCV MCH MCHC RDW Plt Count MPV Gran % Lymph % (Auto) [place] % (Auto) Eos % (Auto) Baso % (Auto) Gran # Lymph # [place] # Eos # Baso # PT INR APTT 61.4 H Sodium Potassium Chloride Carbon Dioxide Anion Gap BUN Creatinine Est GFR ( Amer) Est GFR (Non-Af Amer) POC Glucose (mg/dL) 101 Random Glucose Calcium Magnesium
[2017-02-17 07:55] LABS: HEMATOCRIT 29.3 % (42.0-52.0); MEAN CORPUSCULAR HEMOGLOBIN 31.5 pg (25.0-35.0); MEAN CORPUSCULAR HGB CONC 32.4 g/dl (31.0-37.0); MEAN PLATELET VOLUME 11.6 fl (7.0-11.0); RED CELL DISTRIBUTION WIDTH 14.6 % (11.5-14.5); WHITE BLOOD COUNT 9.4 10^3/ul (4.5-11.0)
[2017-02-17 08:06] LABS: CALCIUM 9.4 mg/dL (8.4-10.5); MAGNESIUM 2.4 mg/dL (1.7-2.2); PHOSPHOROUS 5.5 mg/dL (2.5-4.5); POTASSIUM 3.9 mmol/L (3.6-5.0)
[2017-02-17 08:06] LABS: INR 1.42 (0.93-1.08)
[2017-02-17 08:45] LABS: PARTIAL THROMBOPLASTIN TIME 88.5 Seconds (23.7-30.8)
== END 2017-02-15 21:11 | DRG 175 ==
LOC: ED 11:32 → ERH 13:42 → CCU 16:40 → 2RNO 02-14 01:29
PROVIDERS: ADMIT Internal Medicine; ATTEND Internal Medicine
PROC: 3E033GC Introduction of Other Therapeutic Substance into Peripheral Vein, Percutaneous Approach (ICD-10-PCS; principal; 2017-02-12)
PROC: 5A1D60Z (ICD-10-PCS; 2017-02-13)
DX: I26.92 Saddle embolus of pulmonary artery without acute cor pulmonale (principal); N18.6 End stage renal disease; I12.0 Hypertensive chronic kidney disease with stage 5 chronic kidney disease or end stage renal disease; E11.21 Type 2 diabetes mellitus with diabetic nephropathy; D63.1 Anemia in chronic kidney disease; E78.00 Pure hypercholesterolemia, unspecified; E83.39 Other disorders of phosphorus metabolism; K25.9 Gastric ulcer, unspecified as acute or chronic, without hemorrhage or perforation; E78.5 Hyperlipidemia, unspecified; Z99.2 Dependence on renal dialysis; Z79.82 Long term (current) use of aspirin; Z79.4 Long term (current) use of insulin; Z82.49 Family history of ischemic heart disease and other diseases of the circulatory system

== ENCOUNTER 2017-02-15 21:11 | Inpatient (IN) | payer OTHER, MEDICAID ==
[2017-02-15] MEDS ORDERED: Heparin25000 units/250ml 1/2NS 25,000 UNITS/250 ML BAG IV PRN (22:03)
[2017-02-15 23:42] VITALS: RESP 18
[2017-02-16] MEDS: Insulin Reg-MEDIUM-Coverage SC SCH ×5 (04:16→21:57)
[2017-02-16 04:20] LABS: ADD MANUAL DIFF? NO
[2017-02-16 04:34] LABS: INR 1.13 (0.93-1.08); PARTIAL THROMBOPLASTIN TIME 59.3 Seconds (23.7-30.8)
[2017-02-16 04:35] LABS: CALCIUM 9.7 mg/dL (8.4-10.5); MAGNESIUM 2.1 mg/dL (1.7-2.2); POTASSIUM 3.8 mmol/L (3.6-5.0)
[2017-02-16 04:43] LABS: HEMATOCRIT 31.5 % (42.0-52.0); MEAN CORPUSCULAR HEMOGLOBIN 31.1 pg (25.0-35.0); MEAN CORPUSCULAR HGB CONC 30.8 g/dl (31.0-37.0); WHITE BLOOD COUNT 8.3 10^3/ul (4.5-11.0)
[2017-02-16 04:44] LABS: BASO # 0.03 K/mm3 (0.0-2.0); BASO % 0.4 % (0.0-3.0); EOS # 0.3 (0.0-0.7); GRAN # 4.96 (1.4-6.5); LYMPH # 1.9 (1.2-3.4); LYMPH % 23.4 % (22.0-35.0); MEAN PLATELET VOLUME 11.9 fl (7.0-11.0); MONO # 1.1 (0.1-0.6); MONO % 13.2 % (1.0-6.0); PLATELET COUNT 161 10^3/uL (120.0-450.0); RED CELL DISTRIBUTION WIDTH 13.9 % (11.5-14.5)
[2017-02-16] MEDS: Pantoprazole 40 mg EC Tab PO SCH (05:32)
[2017-02-16 10:34] LABS: MEAN CELL VOLUME 98.4 fL (80.0-105.0); MEAN CORPUSCULAR HEMOGLOBIN 31.5 pg (25.0-35.0); MEAN PLATELET VOLUME 11.6 fl (7.0-11.0); RED CELL DISTRIBUTION WIDTH 14.5 % (11.5-14.5); WHITE BLOOD COUNT 7.6 10^3/ul (4.5-11.0)
[2017-02-16 10:37] LABS: INR 1.17 (0.93-1.08); PARTIAL THROMBOPLASTIN TIME 62.4 Seconds (23.7-30.8)
[2017-02-16 10:59] LABS: CALCIUM 9.9 mg/dL (8.4-10.5); POTASSIUM 4.2 mmol/L (3.6-5.0)
[2017-02-16] MEDS: Heparin25000 units/250ml 1/2NS 25,000 UNITS/250 ML BAG IV PRN (12:55)
--- NOTE | 2017-02-16 14:36 | PN ---
DATE: 02/16/2017 A 51-year-old male with past medical history of hypertension, diabetes, ESRD on hemodialysis, admitte d with saddle pulmonary embolus. Nephrology following for routine hemodialysis care. The patient reports feeling well. He is ambulating without shortness of breath and without supplemen nicolas nasal cannula oxygen. Denies any blood per rectum. PHYSICAL EXAMINATION: VITAL SIGNS: This morning, blood pressure 133/105, heart rate 109, respirations 18, temperature 97.6 . GENERAL: No distress, conversing coherently in full sentences. HEENT: Moist mucous membranes. Nonicteric. CHEST: Clear to auscultation bilaterally. No rales, no rhonchi, no wheezes. HEART: S1, S2 normal, no murmurs, no gallops, no rubs. ABDOMEN: Soft, nontender, nondistended. EXTREMITIES: No leg edema. SKIN: Warm, no cyanosis. PSYCHIATRIC: Normal mood, normal affect. LABORATORY DATA: This morning, WBC 7.6, hemoglobin 9.6, hematocrit 30.0, platelets 174. Chemistry p nataliia: Sodium 138, potassium 4.2, chloride 97, bicarbonate 28, BUN 37, creatinine 10.5, glucose 178, calcium 9.9. Coags PTT 62.4. INR 1.17. ASSESSMENT: 1. End-stage renal disease on hemodialysis. The patient is getting adequate dialysis per outpatient records. Volume status has been stable, as has been electrolytes. Last hemodialysis session yester day, next due for Saturday per routine. 2. Pulmonary embolism. The patient started on Coumadin being bridged with heparin. Coumadin increas ed to 10 mg today after INR still subtherapeutic. 3. Hypertension. Blood pressure has been relatively well controlled. The patient only on Coreg 12. 5 mg. Continue the same. 4. Chronic kidney disease, mineral bone disease. The patient on Sensipar for his hyperparathyroidis m. Should continue the same while here. On Auryxia for phos binder, not available over here, giving PhosLo 1 tab with meals while here. 5. Anemia. Hemoglobin slightly below goal of 10-11 for end-stage renal disease patients. Given incr eased dose of Aranesp 40 mcg yesterday. Continue to monitor. Сергей Ramirez MD cc: [id number] TT: 02/16/2017 14:35:09 Confirmation # [id number] Dictation # [id number] rn
--- NOTE | 2017-02-16 18:20 | CP.PCM.HP ---
<Telma Orellana - Last Filed: 02/16/17 18:32> History of Present Illness - History of Present Illness History of Present Illness: Patient is a 51 y/o with pmh of htn, diabetic nephropathy, ESRD ( HD M,W,F), Anemia of chronic disease, hld, gastric ulcer, IDDM2 presented to the ED s/p syncope, and was found to have b/l extensive PE on CTPE. Patient was hypoxeic, tachycardic and tachypneic on arrival to the ED. Basic labs with with elevated bun/creat, d-dimer was elevated. Lower extremities u/s was glenda. Troponin was elevated, but trended down. Echo revealed no right sided heart strain. Patient was hemodynamically stable, thus was started on heparin drip bridged with Coumadin until therapeutic. Patient reports the cough is improving, denies cp, or sob. Denies n/v/d, denies dizziness. Present on Admission - Present on Admission Any Indicators Present on Admission: Yes History of DVT/PE: No History of Uncontrolled Diabetes: Yes Urinary Catheter: No Decubitus Ulcer Present: No Review of Systems - Review of Systems All systems: reviewed and no additional remarkable complaints except Review of Systems: As mentioned in hpi. Past Patient History - Infectious Disease Hx of Infectious Diseases: None - Tetanus Immunizations Tetanus Immunization: Unknown - Past Medical History & Family History Past Medical History?: Yes - Past Social History Smoking Status: Never Smoked Alcohol: None Drugs: Denies Home Situation {Lives}: With Family - CARDIAC Hx Hypertension: Yes - PULMONARY Hx Respiratory Disorders: Yes Hx Pneumonia: Yes - NEUROLOGICAL Hx Neurological Disorder: Yes - HEENT Hx HEENT Problems: No - RENAL Hx Chronic Kidney Disease: Yes Hx Dialysis: Yes (MWF) Hx Renal Failure: Yes Other/Comment: Pt states his kidneys function at 30% - ENDOCRINE/METABOLIC Hx Diabetes Mellitus Type 2: Yes - HEMATOLOGICAL/ONCOLOGICAL Hx Blood Disorders: Yes Hx Anemia: Yes - INTEGUMENTARY Hx Dermatological Problems: No - MUSCULOSKELETAL/RHEUMATOLOGICAL Hx Falls: Yes - GASTROINTESTINAL Hx Gastrointestinal Disorders: Yes - GENITOURINARY/GYNECOLOGICAL Hx Reproductive Disorders: No - PSYCHIATRIC Hx Emotional Abuse: No Hx Physical Abuse: No - SURGICAL HISTORY Other/Comment: Kidney Bx - ANESTHESIA Hx Anesthesia: Yes Hx Anesthesia Reactions: No Hx Malignant Hyperthermia: No Meds Allergies/Adverse Reactions: Allergies Allergy/AdvReac Type Severity Reaction Status Date / Time No Known Allergies Allergy Verified 01/18/17 11:56 Physical Exam - Constitutional Appears: No Acute Distress - Head Exam Head Exam: ATRAUMATIC, NORMAL INSPECTION, NORMOCEPHALIC - Eye Exam Eye Exam: EOMI, Normal appearance, PERRL. absent: Scleral icterus - ENT Exam ENT Exam: Mucous Membranes Moist, Normal Exam - Neck Exam Neck exam: Positive for: Normal Inspection - Respiratory Exam Respiratory Exam: Clear to Auscultation Bilateral, NORMAL BREATHING PATTERN. absent: Rales, Rhonchi, Wheezes, Respiratory Distress, Stridor - Cardiovascular Exam Cardiovascular Exam: REGULAR RHYTHM, +S1, +S2 - GI/Abdominal Exam GI & Abdominal Exam: Normal Bowel Sounds, Soft. absent: Distended, Firm, Guarding, Rigid, Tenderness - Extremities Exam Extremities exam: Positive for: normal inspection - Back Exam Back exam: NORMAL INSPECTION - Neurological Exam Neurological exam: Alert, Oriented x3 - Psychiatric Exam Psychiatric exam: Normal Affect, Normal Mood - Skin Skin Exam: Dry, Intact, Normal Color, Warm Results - Vital Signs Recent Vital Signs: Last Vital Signs Temp 97.4 F L 02/16/17 16:17 Pulse 102 H 02/16/17 18:01 Resp 18 02/16/17 16:17 BP 147/97 H 02/16/17 18:01 Pulse Ox 99 02/16/17 16:17 - Labs Result Diagrams: 02/16/17 10:00 02/16/17 10:00 Labs: Laboratory Results - last 24 hr 02/15/17 02/16/17 02/16/17 22:06 04:10 04:10 WBC 8.3 RBC 3.12 L Hgb 9.7 L Hct 31.5 L MCV 101.0 MCH 31.1 MCHC 30.8 L RDW 13.9 Plt Count 161 MPV 11.9 H Gran % 60.0 Lymph % (Auto) 23.4 Cherry % (Auto) 13.2 H Eos % (Auto) 3.0 Baso % (Auto) 0.4 Gran # 4.96 Lymph # 1.9 Cherry # 1.1 H Eos # 0.3 Baso # 0.03 PT 12.2 H INR 1.13 H APTT 47.2 H 59.3 H Sodium Potassium Chloride Carbon Dioxide Anion Gap BUN Creatinine Est GFR ( Amer) Est GFR (Non-Af Amer) POC Glucose (mg/dL) Random Glucose Calcium Magnesium 02/16/17 02/16/17 02/16/17 04:10 10:00 10:00 WBC 7.6 RBC 3.05 L Hgb 9.6 L Hct 30.0 L MCV 98.4 MCH 31.5 MCHC 32.0 RDW 14.5 Plt Count 174 MPV 11.6 H Gran % Lymph % (Auto) Cherry % (Auto) Eos % (Auto) Baso % (Auto) Gran # Lymph # Cherry # Eos # Baso # PT 12.6 H INR 1.17 H APTT 62.4 H Sodium 138 Potassium 3.8 Chloride 97 L Carbon Dioxide 30 Anion Gap 15 BUN 34 H Creatinine 10.0 H* Est GFR ( Amer) 7 Est GFR (Non-Af Amer) 6 POC Glucose (mg/dL) Random Glucose 116 H Calcium 9.7 Magnesium 2.1 02/16/17 02/16/17 02/16/17 10:00 11:32 15:40 WBC RBC Hgb Hct MCV MCH MCHC RDW Plt Count MPV Gran % Lymph % (Auto) Cherry % (Auto) Eos % (Auto) Baso % (Auto) Gran # Lymph # Cherry # Eos # Baso # PT INR APTT 61.8 H Sodium 138 Potassium 4.2 Chloride 97 L Carbon Dioxide 28 Anion Gap 17 BUN 37 H Creatinine 10.5 H* Est GFR ( Amer) 6 Est GFR (Non-Af Amer) 5 POC Glucose (mg/dL) 180 H Random Glucose 178 H Calcium 9.9 Magnesium Assessment & Plan - Assessment and Plan (Free Text) Assessment: Patient is a 51 y/o with pmh of htn, diabetic nephropathy, ESRD ( HD M,W,F), Anemia of chronic disease, hld, gastric ulcer, IDDM2 admitted with b/l PE. Now on tcu while awaiting INR to become therapeutic. Plan: 1) B/l non occlusive saddle embolism - on heparin drip until therapeutic INR - INR today 1.17 - will continue coumadin 5 MG daily. - hypercoagulable work up as outpatient - heme/onc following 2) ESRD -with anemia - HD M, W , F 3) htn - clonidine and coreg 4) IDDM - ISSS - Accuchekc achs - carb controlled diet 5) DVT and gi prophylaxis: heparin drip for pe and coumadin po, and protonix. Patient seen, examined, will discuss with Dr Umana. - Date & Time Date: 02/16/17 Time: 10:00 <Francisco Javier Umana - Last Filed: 03/08/17 18:40> Results - Vital Signs Recent Vital Signs: Last Vital Signs Temp 98.5 F 02/17/17 06:00 Pulse 100 H 02/17/17 06:00 Resp 18 02/17/17 06:00 BP 142/82 02/17/17 06:00 Pulse Ox 95 02/17/17 06:00 - Labs Result Diagrams: 02/18/17 09:00 02/18/17 09:00 Attending/Attestation - Attestation I have personally seen and examined this patient.: Yes I have fully participated in the care of the patient.: Yes I have reviewed all pertinent clinical information: Yes Notes (Text): 03/08/17 18:40 Medical record note made by the resident after discussion with my direction and input after the patient was personally seen and examined by me. I have reviewed the chart and agree that the record accurately reflects by personal performance of the history, physical exam, data review, and medical decision-making, in the course for the patient. I have also personally directed the plan of care.
[2017-02-17] MEDS: Pantoprazole 40 mg EC Tab PO SCH (05:36)
[2017-02-17 06:04] VITALS: BP 142/82; PULSE 100; TEMP 98.5; O2SAT 95
[2017-02-17] MEDS: Insulin Reg-MEDIUM-Coverage SC SCH ×4 (09:37→22:25)
[2017-02-17 14:07] LABS: INR 1.56 (0.93-1.08)
[2017-02-17 14:09] LABS: PARTIAL THROMBOPLASTIN TIME 71.7 Seconds (23.7-30.8)
[2017-02-17 20:20] LABS: INR 1.74 (0.93-1.08)
[2017-02-17 20:22] LABS: PARTIAL THROMBOPLASTIN TIME 73.7 Seconds (23.7-30.8)
--- NOTE | 2017-02-17 22:25 | CP.PCM.CON ---
History of Present Illness - History of Present Illness History of Present Illness: 51 year old male admitted with unprovoked PE, B/L. had sudden shortness of breath. Currently on heparin drip. Coumadin was started. Shortness of breath has improved. ESRD on hemodialysis. Review of Systems - Constitutional Constitutional: Fatigue, Malaise - EENT Eyes: absent: As Per HPI, Blind Spots, Blurred Vision, Change in Vision, Decreased Night Vision, Diplopia, Discharge, Dry Eye, Exophthalmos, Floaters, Irritation, Itchy Eyes, Loss of Peripheral Vision, Pain, Photophobia, Requires Corrective Lenses, Sees Flashes, Spots in Vision, Tunnel Vision, Other Visual Disturbances, Loss of Vision, Other Nose/Mouth/Throat: absent: As Per HPI, Epistaxis, Nasal Congestion, Nasal Discharge, Nasal Obstruction, Nasal Trauma, Nose Pain, Post Nasal Drip, Sinus Pain, Sinus Pressure, Bleeding Gums, Change in Voice, Dental Pain, Dry Mouth, Dysphagia, Halitosis, Hoarsness, Lip Swelling, Mouth Lesions, Mouth Pain, Odynophagia, Sore Throat, Throat Swelling, Tongue Swelling, Facial Pain, Neck Pain, Neck Mass, Other - Cardiovascular Cardiovascular: absent: As Per HPI, Acrocyanosis, Chest Pain, Chest Pain at Rest , Chest Pain with Activity, Claudication, Diaphoresis, Dyspnea, Dyspnea on Exertion, Edema, Irregular Heart Rhythm, Pain Radiating to Arm/Neck/Jaw, Leg Edema, Leg Ulcers, Lightheadedness, Orthopnea, Palpitations, Paroxysmal Nocturnal Dyspnea, Pedal Edema, Radiating Pain, Rapid Heart Rate, Slow Heart Rate, Syncope, Other - Respiratory Respiratory: Dyspnea on Exertion - Gastrointestinal Gastrointestinal: absent: As Per HPI, Abdominal Pain, Belching, Bloating, Change in Bowel Habits, Change in Stool Character, Coffee Ground Emesis, Constipation, Cramping, Diarrhea, Dyspepsia, Dysphagia, Early Satiety, Excessive Flatus, Fecal Incontinence, Heartburn, Hematemesis, Hematochezia, Loose Stools, Melena, Nausea, Odynophagia, Temesmus, Vomiting, Other - Genitourinary Genitourinary: absent: As Per HPI, Change in Urinary Stream, Difficulty Urinating, Dysuria, Flank Pain, Hematuria, Pyuria, Nocturia, Urinary Incontinence, Urinary Frequency, Urinary Hesitance, Urinary Urgency, Voiding Freq/Small Amts, Freq UTI, Hx Renal/Bladder Calculi, Hx /Renal Surgery, Bladder Distension, Other - Musculoskeletal Musculoskeletal: absent: As Per HPI, Abnormal Gait, Arthralgias, Atrophy, Back Pain, Deformity, Joint Swelling, Limited Range of Motion, Loss of Height, Muscle Cramps, Muscle Weakness, Myalgias, Neck Pain, Numbness, Radiating Pain into Limb, Stiffness, Tingling, Other - Neurological Neurological: absent: As Per HPI, Abnormal Gait, Abnormal Hearing, Abnormal Movements, Abnormal Speech, Behavioral Changes, Burning Sensations, Confusion, Convulsions, Disequilibrium, Dizziness, Numbness, Focal Weakness, Frequent Falls , Headaches, Lack of Coordination, Loss of Vision, Memory Loss, Paresthesias, Radicular Pain, Restless Legs, Sensory Deficit, Syncope, Tingling, Tremor, Vertigo, Weakness, Other Visual Disturbances, Other - Psychiatric Psychiatric: absent: As Per HPI, Abnormal Sleep Pattern, Anhedonia, Anxiety, Auditory Hallucinations, Behavioral Changes, Change in Appetite, Change in Libido, Confusion, Depression, Difficulty Concentrating, Hallucinations, Homicidal Ideation, Hopelessness, Irritability, Memory Loss, Mood Swings, Panic Attacks, Paranoia, Suicidal Ideation, Visual Hallucinations, Tactile Hallucinations, Other - Endocrine Endocrine: absent: As Per HPI, Change in Body Appearance, Change in Libido, Cold Intolorance, Deepening of Voice, Excessive Sweating, Fatigue, Flushing, Heat Intolorance, Increase in Ring/Shoe/Hat Size, Palpitations, Polydipsia, Polyphagia, Polyuria, Other - Hematologic/Lymphatic Hematologic: As Per HPI Past Patient History - Infectious Disease Hx of Infectious Diseases: None - Tetanus Immunizations Tetanus Immunization: Unknown - Past Medical History & Family History Past Medical History?: Yes Past Family History: Reviewed and not pertinent - Past Social History Smoking Status: Never Smoked Alcohol: None Drugs: Denies Home Situation {Lives}: With Family - CARDIAC Hx Hypertension: Yes - PULMONARY Hx Respiratory Disorders: Yes Hx Pneumonia: Yes - NEUROLOGICAL Hx Neurological Disorder: Yes - HEENT Hx HEENT Problems: No - RENAL Hx Chronic Kidney Disease: Yes Hx Dialysis: Yes (MWF) Hx Renal Failure: Yes Other/Comment: Pt states his kidneys function at 30% - ENDOCRINE/METABOLIC Hx Diabetes Mellitus Type 2: Yes - HEMATOLOGICAL/ONCOLOGICAL Hx Blood Disorders: Yes Hx Anemia: Yes - INTEGUMENTARY Hx Dermatological Problems: No - MUSCULOSKELETAL/RHEUMATOLOGICAL Hx Falls: Yes - GASTROINTESTINAL Hx Gastrointestinal Disorders: Yes - GENITOURINARY/GYNECOLOGICAL Hx Reproductive Disorders: No - PSYCHIATRIC Hx Emotional Abuse: No Hx Physical Abuse: No - SURGICAL HISTORY Other/Comment: Kidney Bx - ANESTHESIA Hx Anesthesia: Yes Hx Anesthesia Reactions: No Hx Malignant Hyperthermia: No Meds Allergies/Adverse Reactions: Allergies Allergy/AdvReac Type Severity Reaction Status Date / Time No Known Allergies Allergy Verified 01/18/17 11:56 - Medications Medications: Current Medications Benzonatate (Tessalon Perles) 100 mg PO TID ANDREW PRN Reason: Protocol Last Admin: 02/17/17 17:51 Dose: 100 mg Calcium Acetate (Phoslo) 667 mg PO WM ANDREW PRN Reason: Protocol Last Admin: 02/17/17 17:51 Dose: 667 mg Carvedilol (Coreg) 12.5 mg PO BID ANDREW PRN Reason: Protocol Last Admin: 02/17/17 17:51 Dose: 12.5 mg Cinacalcet (Sensipar) 30 mg PO DAILY [facility] Last Admin: 02/17/17 11:57 Dose: 30 mg Guaifenesin/Dextromethorphan (Robitussin Dm) 5 ml PO Q4H PRN; Protocol PRN Reason: Cough Heparin Sodium/Sodium Chloride (Heparin 14005 Units/250ml 1/2 Normal Saline) 25 ,000 units in 250 mls @ 13.676 mls/hr IV .[id number] PRN; Protocol; 15 U/KG/HR PRN Reason: ADJUST RATE PER PROTOCOL Last Titration: 02/17/17 09:05 Dose: 13 u/kg/hr, 11.852 mls/hr Insulin Human Regular (Humulin R Med) 0 units SC ACHS ANDREW PRN Reason: Protocol Last Admin: 02/17/17 16:57 Dose: Not Given Pantoprazole Sodium (Protonix Ec Tab) 40 mg PO 0630 ANDREW PRN Reason: Protocol Last Admin: 02/17/17 05:36 Dose: 40 mg Warfarin Sodium (Coumadin) 10 mg PO 1800 ANDREW PRN Reason: Protocol Last Admin: 02/17/17 17:51 Dose: 10 mg Physical Exam - Head Exam Head Exam: ATRAUMATIC, NORMAL INSPECTION, NORMOCEPHALIC - Eye Exam Eye Exam: Normal appearance Pupil Exam: NORMAL ACCOMODATION - ENT Exam ENT Exam: Mucous Membranes Moist - Neck Exam Neck exam: Positive for: Normal Inspection - Respiratory Exam Respiratory Exam: Clear to Auscultation Bilateral, NORMAL BREATHING PATTERN - GI/Abdominal Exam GI & Abdominal Exam: Normal Bowel Sounds, Soft - Extremities Exam Extremities exam: Positive for: normal inspection - Neurological Exam Neurological exam: CN II-XII Intact, Normal Gait, Oriented x3, Reflexes Normal - Psychiatric Exam Psychiatric exam: Normal Affect, Normal Mood - Skin Skin Exam: Dry, Normal Color, Warm Results - Vital Signs Recent Vital Signs: Last Vital Signs Temp 98.5 F 02/17/17 06:00 Pulse 100 H 02/17/17 06:00 Resp 18 02/17/17 06:00 BP 142/82 02/17/17 06:00 Pulse Ox 95 02/17/17 06:00 - Labs Result Diagrams: 02/16/17 10:00 02/16/17 10:00 Labs: Laboratory Results - last 24 hr 02/16/17 02/16/17 02/16/17 16:31 21:27 21:30 PT INR APTT 73.1 H* POC Glucose (mg/dL) 139 H 132 H 02/17/17 02/17/17 02/17/17 05:14 11:31 13:45 PT 16.8 H INR 1.56 H APTT 71.7 H* POC Glucose (mg/dL) 110 209 H 02/17/17 02/17/17 16:57 19:40 PT 18.8 H INR 1.74 H APTT 73.7 H* POC Glucose (mg/dL) 137 H Assessment & Plan - Assessment and Plan (Free Text) Assessment: 1. B/L PE, unprovoked. 2. hypercoaguable state 3. ESRD on hemodialysis. 4. Anemia. Plan : increase coumadin 10 mg daily. Continue heparin drip until INR 2.0. Anemia related to ESRD. Hb/Hct stable. - Date & Time Date: 02/16/17 Time: 11:00
--- NOTE | 2017-02-17 22:31 | CP.PCM.PN ---
Subjective - Date & Time of Evaluation Date of Evaluation: 02/17/17 Time of Evaluation: 11:00 - Subjective Subjective: Comfortable. Shortness of breath improved. No chest pain. ambulating without discomfort. On hemodialysis. No bleed. Objective - Vital Signs/Intake and Output Vital Signs (last 24 hours): Temp Pulse Resp BP Pulse Ox 98.5 F 100 H 18 142/82 95 02/17/17 06:00 02/17/17 06:00 02/17/17 06:00 02/17/17 06:00 02/17/17 06:00 Intake and Output: 02/17/17 02/18/17 18:59 06:59 Intake Total 0 680 Balance 0 680 - Medications Medications: Current Medications Benzonatate (Tessalon Perles) 100 mg PO TID [facility] PRN Reason: Protocol Last Admin: 02/17/17 17:51 Dose: 100 mg Calcium Acetate (Phoslo) 667 mg PO WM [facility] PRN Reason: Protocol Last Admin: 02/17/17 17:51 Dose: 667 mg Carvedilol (Coreg) 12.5 mg PO BID [facility] PRN Reason: Protocol Last Admin: 02/17/17 17:51 Dose: 12.5 mg Cinacalcet (Sensipar) 30 mg PO DAILY [facility] Last Admin: 02/17/17 11:57 Dose: 30 mg Guaifenesin/Dextromethorphan (Robitussin Dm) 5 ml PO Q4H PRN; Protocol PRN Reason: Cough Heparin Sodium/Sodium Chloride (Heparin 04094 Units/250ml 1/2 Normal Saline) 25 ,000 units in 250 mls @ 13.676 mls/hr IV .[id number] PRN; Protocol; 15 U/KG/HR PRN Reason: ADJUST RATE PER PROTOCOL Last Titration: 02/17/17 09:05 Dose: 13 u/kg/hr, 11.852 mls/hr Insulin Human Regular (Humulin R Med) 0 units SC ACHS [facility] PRN Reason: Protocol Last Admin: 02/17/17 16:57 Dose: Not Given Pantoprazole Sodium (Protonix Ec Tab) 40 mg PO 0630 [facility] PRN Reason: Protocol Last Admin: 02/17/17 05:36 Dose: 40 mg Warfarin Sodium (Coumadin) 10 mg PO 1800 [facility] PRN Reason: Protocol Last Admin: 02/17/17 17:51 Dose: 10 mg - Labs Labs: 02/16/17 10:00 02/16/17 10:00 PT 18.8 Seconds (9.9-11.8) H 02/17/17 19:40 INR 1.74 (0.93-1.08) H 02/17/17 19:40 APTT 73.7 Seconds (23.7-30.8) H* 02/17/17 19:40 - Head Exam Head Exam: ATRAUMATIC, NORMAL INSPECTION, NORMOCEPHALIC - Eye Exam Eye Exam: Normal appearance Pupil Exam: NORMAL ACCOMODATION - Neck Exam Neck Exam: Full ROM, Normal Inspection - Respiratory Exam Respiratory Exam: Clear to Ausculation Bilateral, NORMAL BREATHING PATTERN - GI/Abdominal Exam GI & Abdominal Exam: Soft, Normal Bowel Sounds - Back Exam Back Exam: CVA tenderness (L) - Neurological Exam Neurological Exam: Alert, CN II-XII Intact, Normal Gait, Oriented x3 - Psychiatric Exam Psychiatric exam: Normal Affect, Normal Mood - Skin Skin Exam: Dry, Normal Color, Warm Assessment and Plan - Assessment and Plan (Free Text) Assessment: 1. B/L PE : on heparin drip. PTT therapeutic. coumadin 10 mg today. INR still low. Shortness of breath improved. Echo no RV strain. 2. Anemia : Hb/hct stable. will monitor. 3. ESRD : on hemodialysis. lytes normal. 4. Ambulating , no issues. Thank you Dr. Winchester for allowing us to participate in his care.
[2017-02-17] MEDS: guaiFENesin DM 100 mg-10 mg/5 ml UD PO PRN (22:35)
[2017-02-18] MEDS: Heparin25000 units/250ml 1/2NS 25,000 UNITS/250 ML BAG IV PRN (02:15)
[2017-02-18] MEDS: guaiFENesin DM 100 mg-10 mg/5 ml UD PO PRN (02:23)
[2017-02-18] MEDS: Pantoprazole 40 mg EC Tab PO SCH (06:04)
--- NOTE | 2017-02-18 07:15 | CP.PCM.PN ---
Objective - Vital Signs/Intake and Output Vital Signs (last 24 hours): Temp Pulse Resp BP Pulse Ox 98.5 F 100 H 18 142/82 95 02/17/17 06:00 02/17/17 06:00 02/17/17 06:00 02/17/17 06:00 02/17/17 06:00 Intake and Output: 02/18/17 02/18/17 06:59 18:59 Intake Total 930 Balance 930 - Medications Medications: Current Medications Benzonatate (Tessalon Perles) 100 mg PO TID ANDREW PRN Reason: Protocol Last Admin: 02/17/17 17:51 Dose: 100 mg Calcium Acetate (Phoslo) 667 mg PO WM ANDREW PRN Reason: Protocol Last Admin: 02/17/17 17:51 Dose: 667 mg Carvedilol (Coreg) 12.5 mg PO BID ANDREW PRN Reason: Protocol Last Admin: 02/17/17 17:51 Dose: 12.5 mg Cinacalcet (Sensipar) 30 mg PO DAILY [facility] Last Admin: 02/17/17 11:57 Dose: 30 mg Guaifenesin/Dextromethorphan (Robitussin Dm) 5 ml PO Q4H PRN; Protocol PRN Reason: Cough Last Admin: 02/18/17 02:23 Dose: 5 ml Heparin Sodium/Sodium Chloride (Heparin 73907 Units/250ml 1/2 Normal Saline) 25 ,000 units in 250 mls @ 13.676 mls/hr IV .[id number] PRN; Protocol; 15 U/KG/HR PRN Reason: ADJUST RATE PER PROTOCOL Last Admin: 02/18/17 02:15 Dose: 13 u/kg/hr, 11.852 mls/hr Insulin Human Regular (Humulin R Med) 0 units SC ACHS ANDREW PRN Reason: Protocol Last Admin: 02/17/17 22:25 Dose: Not Given Pantoprazole Sodium (Protonix Ec Tab) 40 mg PO 0630 ANDREW PRN Reason: Protocol Last Admin: 02/18/17 06:04 Dose: 40 mg Warfarin Sodium (Coumadin) 10 mg PO 1800 ANDREW PRN Reason: Protocol Last Admin: 02/17/17 17:51 Dose: 10 mg - Labs Labs: 02/16/17 10:00 02/16/17 10:00 PT 18.8 Seconds (9.9-11.8) H 02/17/17 19:40 INR 1.74 (0.93-1.08) H 02/17/17 19:40 APTT 59.2 Seconds (23.7-30.8) H 02/18/17 02:45
[2017-02-18] MEDS: Insulin Reg-MEDIUM-Coverage SC SCH ×2 (07:46→14:48)
[2017-02-18 09:41] LABS: HEMATOCRIT 29.3 % (42.0-52.0); MEAN CELL VOLUME 96.7 fL (80.0-105.0); MEAN CORPUSCULAR HEMOGLOBIN 31.7 pg (25.0-35.0); MEAN CORPUSCULAR HGB CONC 32.8 g/dl (31.0-37.0); MEAN PLATELET VOLUME 11.6 fl (7.0-11.0); RED CELL DISTRIBUTION WIDTH 14.6 % (11.5-14.5); WHITE BLOOD COUNT 9.6 10^3/ul (4.5-11.0)
[2017-02-18 09:44] LABS: CALCIUM 9.7 mg/dL (8.4-10.5); POTASSIUM 4.2 mmol/L (3.6-5.0)
[2017-02-18 09:50] LABS: INR 2.25 (0.93-1.08)
--- NOTE | 2017-02-18 13:57 | CP.PCM.DIS ---
<Telma Orellana - Last Filed: 02/19/17 06:48> Provider - Provider Date of Admission: 02/15/17 21:11 Attending physician: Jovanny Winchester MD Primary care physician: Marie De Souza MD Consults: heme/onc nephro Time Spent in preparation of Discharge (in minutes): 50 Diagnosis - Discharge Diagnosis (1) Bilateral pulmonary embolism Status: Acute (2) Anemia in chronic kidney disease (CKD) Status: Chronic (3) Benign hypertensive heart disease Status: Chronic (4) Diabetes Status: Chronic (5) ESRD (end stage renal disease) on dialysis Status: Chronic Hospital Course - Lab Results Lab Results: Most Recent Lab Values WBC 9.6 10^3/ul (4.5-11.0) 02/18/17 09:00 RBC 3.03 10^6/uL (3.5-6.1) L 02/18/17 09:00 Hgb 9.6 gm/dL (14.0-18.0) L 02/18/17 09:00 Hct 29.3 % (42.0-52.0) L 02/18/17 09:00 MCV 96.7 fL (80.0-105.0) 02/18/17 09:00 MCH 31.7 pg (25.0-35.0) 02/18/17 09:00 MCHC 32.8 g/dl (31.0-37.0) 02/18/17 09:00 RDW 14.6 % (11.5-14.5) H 02/18/17 09:00 Plt Count 228 10^3/uL (120.0-450.0) 02/18/17 09:00 MPV 11.6 fl (7.0-11.0) H 02/18/17 09:00 Gran % 60.0 % (50.0-68.0) 02/16/17 04:10 Lymph % (Auto) 23.4 % (22.0-35.0) 02/16/17 04:10 [place] % (Auto) 13.2 % (1.0-6.0) H 02/16/17 04:10 Eos % (Auto) 3.0 % (1.5-5.0) 02/16/17 04:10 Baso % (Auto) 0.4 % (0.0-3.0) 02/16/17 04:10 Gran # 4.96 (1.4-6.5) 02/16/17 04:10 Lymph # 1.9 (1.2-3.4) 02/16/17 04:10 [place] # 1.1 (0.1-0.6) H 02/16/17 04:10 Eos # 0.3 (0.0-0.7) 02/16/17 04:10 Baso # 0.03 K/mm3 (0.0-2.0) 02/16/17 04:10 PT 24.3 Seconds (9.9-11.8) H 02/18/17 09:00 INR 2.25 (0.93-1.08) H 02/18/17 09:00 APTT 54.6 Seconds (23.7-30.8) H 02/18/17 11:21 Sodium 140 mmol/L (132-148) 02/18/17 09:00 Potassium 4.2 mmol/L (3.6-5.0) 02/18/17 09:00 Chloride 98 mmol/L (98-107) 02/18/17 09:00 Carbon Dioxide 24 mmol/L (21-33) 02/18/17 09:00 Anion Gap 22 (10-20) H 02/18/17 09:00 BUN 72 mg/dL (7-21) H 02/18/17 09:00 Creatinine 17.3 mg/dL (0.5-1.4) H* 02/18/17 09:00 Est GFR ( Amer) 4 02/18/17 09:00 Est GFR (Non-Af Amer) 3 02/18/17 09:00 POC Glucose (mg/dL) 102 mg/dL (65-110) 02/18/17 04:40 Random Glucose 150 mg/dL (70-110) H 02/18/17 09:00 Calcium 9.7 mg/dL (8.4-10.5) 02/18/17 09:00 Magnesium 2.1 mg/dL (1.7-2.2) 02/16/17 04:10 - Hospital Course Hospital Course: Patient is a 51 y/o with pmh of htn, diabetic nephropathy, ESRD ( HD M,W,F), Anemia of chronic disease, hld, gastric ulcer, IDDM2 presented to the ED s/p syncope, and was found to have b/l extensive PE on CTPE. Patient was hypoxeic, tachycardic and tachypneic on arrival to the ED. Basic labs with elevated bun/ creat, and d-dimer. Lower extremities u/s was normal. Troponin was elevated, but trended down. Echo revealed no right sided heart strain. Patient was hemodynamically stable, thus was started on heparin drip bridged with Coumadin until therapeutic. On 02/18, patient's INR was 2.25, heparin drip was discontinued. Patient was discharged home with 5 mg of Coumadin for 2 days, and to follow up with heme/onc, and PMD. - Date & Time of H&P Date of H&P: 02/16/17 Time of H&P: 18:20 Discharge Exam - Head Exam Head Exam: ATRAUMATIC, NORMAL INSPECTION, NORMOCEPHALIC - Eye Exam Eye Exam: EOMI, Normal appearance, PERRL. absent: Scleral icterus - ENT Exam ENT Exam: Mucous Membranes Moist - Neck Exam Neck exam: Normal Inspection - Respiratory Exam Respiratory Exam: Clear to PA & Lateral, NORMAL BREATHING PATTERN, UNREMARKABLE. absent: Rales, Rhonchi, Wheezes, Respiratory Distress, Stridor - Cardiovascular Exam Cardiovascular Exam: REGULAR RHYTHM, RRR, +S1, +S2. absent: Systolic Murmur - GI/Abdominal Exam GI & Abdominal Exam: Normal Bowel Sounds, Soft, Unremarkable. absent: Distended , Firm, Guarding, Tenderness - Extremities Exam Extremities exam: normal inspection - Back Exam Back exam: NORMAL INSPECTION - Neurological Exam Neurological exam: Alert, Oriented x3 - Psychiatric Exam Psychiatric exam: Normal Affect, Normal Mood - Skin Skin Exam: Dry, Intact, Normal Color, Warm Discharge Plan - Discharge Medications Prescriptions: Warfarin [Coumadin] 5 mg PO 1800 #2 tab - Follow Up Plan Condition: GOOD Disposition: HOME/ ROUTINE Patient education suggested?: Yes Instructions: Chest Pain (DC), Chest Pain (GEN), Pulmonary Embolism (DC), Pulmonary Embolism (GEN) Additional Instructions: Follow up with Dr Escobar in her office on take Coumadin 5 mg at night- 6pm for [address] Escobar Follow up with your PMD. Referrals: Marie De Souza MD [Primary Care Provider] - Brooke Escobar MD [Staff Provider] - <Francisco Javier Umana - Last Filed: 03/08/17 18:53> Provider - Provider Date of Admission: 02/15/17 21:11 Attending physician: Jovanny Winchester MD Primary care physician: Marie De Souza MD Hospital Course - Lab Results Lab Results: Most Recent Lab Values WBC 9.6 10^3/ul (4.5-11.0) 02/18/17 09:00 RBC 3.03 10^6/uL (3.5-6.1) L 02/18/17 09:00 Hgb 9.6 gm/dL (14.0-18.0) L 02/18/17 09:00 Hct 29.3 % (42.0-52.0) L 02/18/17 09:00 MCV 96.7 fL (80.0-105.0) 02/18/17 09:00 MCH 31.7 pg (25.0-35.0) 02/18/17 09:00 MCHC 32.8 g/dl (31.0-37.0) 02/18/17 09:00 RDW 14.6 % (11.5-14.5) H 02/18/17 09:00 Plt Count 228 10^3/uL (120.0-450.0) 02/18/17 09:00 MPV 11.6 fl (7.0-11.0) H 02/18/17 09:00 Gran % 60.0 % (50.0-68.0) 02/16/17 04:10 Lymph % (Auto) 23.4 % (22.0-35.0) 02/16/17 04:10 [place] % (Auto) 13.2 % (1.0-6.0) H 02/16/17 04:10 Eos % (Auto) 3.0 % (1.5-5.0) 02/16/17 04:10 Baso % (Auto) 0.4 % (0.0-3.0) 02/16/17 04:10 Gran # 4.96 (1.4-6.5) 02/16/17 04:10 Lymph # 1.9 (1.2-3.4) 02/16/17 04:10 [place] # 1.1 (0.1-0.6) H 02/16/17 04:10 Eos # 0.3 (0.0-0.7) 02/16/17 04:10 Baso # 0.03 K/mm3 (0.0-2.0) 02/16/17 04:10 PT 24.3 Seconds (9.9-11.8) H 02/18/17 09:00 INR 2.25 (0.93-1.08) H 02/18/17 09:00 APTT 54.6 Seconds (23.7-30.8) H 02/18/17 11:21 Sodium 140 mmol/L (132-148) 02/18/17 09:00 Potassium 4.2 mmol/L (3.6-5.0) 02/18/17 09:00 Chloride 98 mmol/L (98-107) 02/18/17 09:00 Carbon Dioxide 24 mmol/L (21-33) 02/18/17 09:00 Anion Gap 22 (10-20) H 02/18/17 09:00 BUN 72 mg/dL (7-21) H 02/18/17 09:00 Creatinine 17.3 mg/dL (0.5-1.4) H* 02/18/17 09:00 Est GFR ( Amer) 4 02/18/17 09:00 Est GFR (Non-Af Amer) 3 02/18/17 09:00 POC Glucose (mg/dL) 204 mg/dL (65-110) H 02/18/17 16:30 Random Glucose 150 mg/dL (70-110) H 02/18/17 09:00 Calcium 9.7 mg/dL (8.4-10.5) 02/18/17 09:00 Magnesium 2.1 mg/dL (1.7-2.2) 02/16/17 04:10 Attending/Attestation - Attestation I have personally seen and examined this patient.: Yes I have fully participated in the care of the patient.: Yes I have reviewed all pertinent clinical information, including history, physical exam and plan: Yes Notes (Text): 03/08/17 18:53 Medical record note made by the resident after discussion with my direction and input after the patient was personally seen and examined by me. I have reviewed the chart and agree that the record accurately reflects by personal performance of the history, physical exam, data review, and medical decision-making, in the course for the patient. I have also personally directed the plan of care.
--- NOTE | 2017-02-19 08:31 | PN ---
DATE: 02/18/2017 NEPHROLOGY FOLLOWUP NOTE A 51-year-old male with past medical history of hypertension, diabetes, ESRD on hemodialysis, admitte d with saddle pulmonary emboli. Nephrology following for routine hemodialysis care. The patient reports feeling well. Denies getting any cramps while on dialysis. Denies any vomiting or diarrhea. PHYSICAL EXAMINATION: VITAL SIGNS: This morning, blood pressure 142/82, heart rate 100, respirations 18, temperature 98.5, O2 sat 95% on room air. GENERAL: In no distress, conversing coherently in full sentences. HEENT: Moist mucous membranes. Nonicteric. CHEST: Clear to auscultation bilaterally. No rales, no rhonchi, no wheezes. HEART: S1, S2 normal. No murmurs, no gallops, no rubs. ABDOMEN: Soft, nontender, nondistended. EXTREMITIES: No leg edema. SKIN: Warm. No cyanosis. PSYCHIATRIC: Normal affect, normal mood. LABORATORY DATA: This morning, WBC 9.6, hemoglobin 9.6, hematocrit 29.3, platelets 228. INR 2.25. Sodium 140, potassium 4.2, chloride 98, bicarb 24, BUN 72, creatinine 17.3, glucose 150, calcium 9.7. ASSESSMENT AND PLAN: 1. End-stage renal disease on hemodialysis. The patient is getting routine hemodialysis per schedul e today, has been under dry weight with no signs of edema. The patient has good nutritional status a nd no signs of any gastrointestinal losses. We will lower dry weight. 2. Saddle pulmonary emboli. The patient is on Coumadin, therapeutic today for the first time to be monitored as an outpatient by hematology and/or primary medical doctor. 3. Hypertension. Blood pressure elevated this morning at the beginning of dialysis on Coreg 12.5 mg b.i.d. The patient was getting clonidine that had been being slowly tapered down and currently off. Blood pressures have generally been well-controlled. Will benefit from additional ultrafiltration on hemodialysis. Continue Coreg at 12.5 mg b.i.d. 4. Chronic kidney disease, mineral bone disease. The patient with hyperphosphatemia, currently on P hosLo as his home medication. Auryxia is not available. Will continue Auryxia as outpatient. Osmany nue Sensipar 30 mg daily. 5. Anemia. Hemoglobin below goal of 10-11 for hemodialysis. The patient received higher dose of Ar anesp last week. We will continue the same. Сергей Ramirez MD cc: [id number] TT: 02/18/2017 13:25:18 Confirmation # [id number] Dictation # [id number]
== END 2017-02-18 17:40 | disposition home or self-care (01) | DRG 175 ==
LOC: TRCU 21:11
PROVIDERS: ADMIT Internal Medicine; ATTEND Internal Medicine
PROC: F07Z9ZZ Gait Training/Functional Ambulation Treatment (ICD-10-PCS; principal; 2017-02-16)
PROC: F08Z4ZZ Home Management Treatment (ICD-10-PCS; 2017-02-16)
PROC: 5A1D00Z (ICD-10-PCS; 2017-02-18)
DX: I26.92 Saddle embolus of pulmonary artery without acute cor pulmonale (principal); N18.6 End stage renal disease; E11.21 Type 2 diabetes mellitus with diabetic nephropathy; I13.11 Hypertensive heart and chronic kidney disease without heart failure, with stage 5 chronic kidney disease, or end stage renal disease; D63.1 Anemia in chronic kidney disease; Z79.01 Long term (current) use of anticoagulants; E11.22 Type 2 diabetes mellitus with diabetic chronic kidney disease; E78.5 Hyperlipidemia, unspecified; E21.3 Hyperparathyroidism, unspecified; E83.39 Other disorders of phosphorus metabolism; Z79.4 Long term (current) use of insulin; Z99.2 Dependence on renal dialysis

== ENCOUNTER 2018-09-08 10:04 | Inpatient (IN) | payer MEDICARE, MEDICAID ==
[2018-09-08 10:20] VITALS: BMI 29.8
--- NOTE | 2018-09-08 10:45 | ED PDOC ---
Arrival/HPI - General Chief Complaint: Shortness Of Breath Time Seen by Provider: 09/08/18 10:26 Historian: Patient - History of Present Illness Narrative History of Present Illness (Text): 09/08/18 10:50 A 52 year old male, whose past medical history includes diabetes, dialysis(//Sat, last session was Saturday), presents to the emergency department complaining of shortness of breath for the past 5 days. Patient reports he went for dialysis, and prior to starting session, mentioned that he is feeling shortness of breath, and was immediately sent to the ER without having dialysis performed yet. Also, patient mentions he has had a cold since last week and is feeling congested. He states he went to see his PMD, and was tested for both strep throat and flu, negative for both. Patient notes also experiencing cough with phlegm, however denies any chest pain, nausea, vomiting, chills (had before but not now), or any other complaints at this time. Recent sick contacts, his sister has the flu, and his niece has strep throat. PMD: Dr. Marie De Souza Past Medical History - Provider Review Nursing Documentation Reviewed: Yes - Past History Past History: No Previous - Infectious Disease Hx of Infectious Diseases: None - Tetanus Immunization Tetanus Immunization: Unknown - Cardiac Hx Hypertension: Yes - Pulmonary Hx Respiratory Disorders: Yes Hx Pneumonia: Yes - Neurological Hx Neurological Disorder: Yes - HEENT Hx HEENT Disorder: No - Renal Hx Renal Disorder: Yes Hx Dialysis: Yes (MWF) Hx Renal Failure: Yes Other/Comment: Pt states his kidneys function at 30% - Endocrine/Metabolic Hx Diabetes Mellitus Type 2: Yes - Hematological/Oncological Hx Blood Disorders: Yes Hx Anemia: Yes - Integumentary Hx Dermatological Disorder: No - Musculoskeletal/Rheumatological Hx Falls: Yes - Gastrointestinal Hx Gastrointestinal Disorders: No - Genitourinary/Gynecological Hx Genitourinary Disorders: No - Psychiatric Hx Emotional Abuse: No Hx Physical Abuse: No Hx Substance Use: No - Past Surgical History Past Surgical History: No Previous - Surgical History Other/Comment: Kidney Bx - Anesthesia Hx Anesthesia: Yes Hx Anesthesia Reactions: No Hx Malignant Hyperthermia: No - Suicidal Assessment Feels Threatened In Home Enviroment: No Family/Social History - Physician Review Nursing Documentation Reviewed: Yes Family/Social History: No Known Family HX Smoking Status: Never Smoked Hx Alcohol Use: No Hx Substance Use: No Hx Substance Use Treatment: No Allergies/Home Meds Allergies/Adverse Reactions: Allergies No Known Allergies Allergy (Verified 01/18/17 11:56) Home Medications: Home Meds Medication Instructions Recorded Confirmed RX: Insulin Human NPH/Reg [HumuLIN 30 units SC ACBD 09/16/13 09/08/18 70/30 (NPH/Reg)] RX: Carvedilol [Coreg] 12.5 mg PO BID 06/08/16 09/08/18 RX: Ferric Citrate [Auryxia] 3 tab PO ACTID 01/18/17 09/08/18 Ferric Citrate [Auryxia] 1 gm PO ACTID 09/08/18 09/08/18 RX: Warfarin [Coumadin] 7 mg PO 1800 09/08/18 09/08/18 Review of Systems - Physician Review All systems were reviewed & negative as marked: Yes - Review of Systems Constitutional: Fevers (told from dialysis he has fever). absent: Night Sweats (had chills before, now does not.) Respiratory: SOB, Cough (with phlegm) Cardiovascular: absent: Chest Pain Gastrointestinal: absent: Nausea, Vomiting Physical Exam - Physical Exam Narrative Physical Exam (Text): PE: Gen: NAD, cooperative, well appearing, non-toxic. Head: NCAT. HEENT: EYES: PERRL, EOMI, conjunctiva clear, MOUTH: moist MM, posterior pharynx without erythema or exudate, uvula midline. CV: (+) S1S2, RRR, no M/G/R LUNGS: CTA B/L, No W/R/R, good air movement, right lower lobe crackles Abd: Soft, NTTP, no guarding, rebound or rigidity. Neuro: AAO x 3, GCS 15, CN 2-12 intact, motor and sensory grossly intact, 5/5 muscle strength B/L UE's and LE's. ext: no cyanosis or edema, left upper extremity AB graft, positive bruit. Vital Signs Reviewed: Yes Vital Signs Temp Pulse Resp BP Pulse Ox 09/08/18 10:33 18 96 09/08/18 10:05 98.5 F 82 18 141/93 H 97 Temperature: Afebrile Blood Pressure: Normal Pulse: Regular Respiratory Rate: Normal Appearance: Positive for: Well-Appearing, Non-Toxic, Comfortable Pain Distress: None Mental Status: Positive for: Alert and Oriented X 3 Medical Decision Making ED Course and Treatment: 09/08/18 10:50 Impression: 52 year old male with shortness of breath and cough with phlegm. Plan: -- EKG -- Chest X-ray -- Venous Blood Gas -- Labs -- Blood Culture -- Reassess and disposition Prior Visits: Notes and results from previous visits were reviewed. Patient was last seen in the emergency department on Progress Notes: EKG: Ordered, reviewed, and independently interpreted the EKG. Rate : 84 BPM Rhythm : NSR Interpretation : Normal access, occasional PVCs. Comparison : No previous EKG for comparison. 09/08/18 14:02 Discussed Chest X-ray results with Dr. Ogden (Radiologist) who states x- ray shows right lower lobe infiltrate. 09/08/18 14:21: Case discussed with Dr. Harris, who accepts patient to his service. Requests Chest CT. Patient started on antibiotics. PROCEDURE: CT Chest with contrast (Pulmonary Angiogram) Dictator : Manuel Padgett MD Report Date : 09/08/2018 16:53:27 IMPRESSION: Unremarkable CT pulmonary angiogram. No pulmonary embolus. - Scribe Statement The provider has reviewed the documentation as recorded by the Eliezer Gilliland Provider Scribe Attestation: All medical record entries made by the Scribe were at my direction and p ersonally dictated by me. I have reviewed the chart and agree that the record accurately reflects my personal performance of the history, physical exam, medical decision making, and the department course for this patient. I have also personally directed, reviewed, and agree with the discharge instructions and disposition. Disposition/Present on Arrival - Present on Arrival Any Indicators Present on Arrival: Yes History of DVT/PE: No History of Uncontrolled Diabetes: Yes Urinary Catheter: No History of Decub. Ulcer: No History Surgical Site Infection Following: None - Disposition Have Diagnosis and Disposition been Completed?: Yes Diagnosis: ESRD (end stage renal disease) on dialysis, Pneumonia Disposition: HOSPITALIZED Disposition Time: 14:21 Patient Plan: Admission Condition: STABLE
[2018-09-08 11:17] LABS: VENOUS BLOOD GAS BASE EXCESS 0.8 mmol/L (0.0-2.0); VENOUS BLOOD GAS PO2 91 mm/Hg (30-55); VENOUS BLOOD PH 7.37 (7.32-7.43)
[2018-09-08 11:18] LABS: BASO # 0.01 K/mm3 (0.0-2.0); BASO % 0.2 % (0.0-3.0); EOS # 0.1 (0.0-0.7); EOS % 1.9 % (1.5-5.0); GRAN # 4.18 (1.4-6.5); GRAN % 67.2 % (50.0-68.0); LYMPH # 1.5 (1.2-3.4); LYMPH % 23.5 % (22.0-35.0); MEAN CORPUSCULAR HEMOGLOBIN 30.9 pg (25.0-35.0); MEAN CORPUSCULAR HGB CONC 30.9 g/dl (31.0-37.0); MEAN PLATELET VOLUME 13.1 fl (7.0-11.0); MONO # 0.5 (0.1-0.6); MONO % 7.2 % (1.0-6.0); RBC 3.24 10^6/uL (3.5-6.1); WHITE BLOOD COUNT 6.2 10^3/uL (4.5-11.0)
[2018-09-08 11:27] LABS: CALCIUM 9.1 mg/dL (8.4-10.5)
[2018-09-08 11:38] LABS: TROPONIN I 0.03 ng/mL
--- NOTE | 2018-09-08 14:02 | RAD ---
Date of service: 09/08/2018 HISTORY: cough, sob COMPARISON: Portable chest 01/23/2017. TECHNIQUE: Chest PA and lateral FINDINGS: LUNGS: Limited inspiratory volume. Crowding of the bronchovascular markings seen bilaterally with borderline patchy infiltrate right base. Remaining lung hodge are clear. Unremarkable lateral projections. PLEURA: No significant pleural effusion identified. No pneumothorax apparent. CARDIOVASCULAR: No aortic atherosclerotic calcification present. Normal cardiac size. No pulmonary vascular congestion. OSSEOUS STRUCTURES: No significant abnormalities. VISUALIZED UPPER ABDOMEN: Normal. OTHER FINDINGS: None. IMPRESSION: Borderline patchy airspace disease right base with remainder nonacute. Limited inspiratory effort.
[2018-09-08] MEDS ORDERED: Azithromycin 500MG/NS 250ml 500 MG/250 ML BAG IVPB STA (14:19)
[2018-09-08] MEDS ORDERED: cefTRIAXone 1 gm 1 GM/100 ML BAG IVPB STA (14:19)
[2018-09-08] MEDS ORDERED: Iodixanol 320 MG/ML 100 ML BOTTLE IV ONE (14:30)
--- NOTE | 2018-09-08 16:57 | CT ---
Date of service: 09/08/2018 PROCEDURE: CT Chest with contrast (Pulmonary Angiogram) HISTORY: sob COMPARISON: 02/12/2017 CT TECHNIQUE: Axial computed tomography images were obtained of the chest in the pulmonary arterial phase of enhancement. Coronal and sagittal reformatted images were created and reviewed. Intravenous contrast dose: 100 cc of Visipaque Radiation dose: Total exam DLP = 490.11 mGy-cm. This CT exam was performed using one or more of the following dose reduction techniques: Automated exposure control, adjustment of the mA and/or kV according to patient size, and/or use of iterative reconstruction technique. FINDINGS: PULMONARY ARTERIES: Unremarkable. No pulmonary embolism. AORTA: No acute findings. No thoracic aortic aneurysm. No aortic atherosclerotic calcification or mural plaque present. LUNGS: Unremarkable. No nodule, mass or pulmonary consolidation. PLEURAL SPACES: Unremarkable. No effusion or pneumothorax. HEART: Unremarkable. No cardiomegaly. No significant pericardial effusion. LYMPH NODES: No lymphadenopathy. BONES, CHEST WALL: Unremarkable. No fracture or destructive lesion OTHER FINDINGS: Fatty infiltration of the liver IMPRESSION: Unremarkable CT pulmonary angiogram. No pulmonary embolus.
--- NOTE | 2018-09-08 17:40 | CP.PCM.HP ---
History of Present Illness - History of Present Illness History of Present Illness: Percy Kaye DO PGY1 - Internal Medicine Enroller - H&P for Dr. Harris CC: SOB Patient is a 52M w/a PMH of PE (on warfarin), HTN, ESRD on MWF HD, who presented to [facility] on 09[place]08 after an episode of shortness of breath during dialysis this morning. Patient reported that prior to dialysis he had been seen by his PCP Dr. Maria for cough, mild shortness of breath, fever, and headache. Rapid Flu and Rapid Strep testing both resulted as negative. Patient reported that his flu/cold symptoms over the past week have been relatively unchanged. Today during dialysis patient reported sudden onsent shortness of breath prior to the start of dialysis. Patient was never dialyzed and sent immediately to ED. He reported he had never had a prior similar episode. Denied any associated chest pain, blurry vision, weakness during the episode. Upon ROS patient does admit to productive yellow sputum cough, chest/nasal congestion, chills, fevers, and headaches. Remainder of 12 system ROS patient denies. Patient reports that his PE did not have any associated DVT and was unrpovoked when further asked to describe. PMD: Maria Home Rx: As updated in chart [facility]: [facility] PMH: PE, HTN, ESRD - on MWF HD - LUE fistula PSH: Denies Allergies: NKDA; Denies seasonal allergies Soc: Denies - tobacco, alcohol, and drug use. Present on Admission - Present on Admission Any Indicators Present on Admission: Yes History of DVT/PE: Yes Review of Systems - Review of Systems All systems: reviewed and no additional remarkable complaints except Review of Systems: as per HPI Past Patient History - Infectious Disease Hx of Infectious Diseases: None - Tetanus Immunizations Tetanus Immunization: Unknown - Past Medical History & Family History Past Medical History?: Yes - Past Social History Smoking Status: Never Smoked - CARDIAC Hx Hypertension: Yes - PULMONARY Hx Respiratory Disorders: Yes Hx Pneumonia: Yes - NEUROLOGICAL Hx Neurological Disorder: Yes - HEENT Hx HEENT Problems: No - RENAL Hx Chronic Kidney Disease: Yes Hx Dialysis: Yes (MWF) Hx Renal Failure: Yes Other/Comment: Pt states his kidneys function at 30% - ENDOCRINE/METABOLIC Hx Diabetes Mellitus Type 2: Yes - HEMATOLOGICAL/ONCOLOGICAL Hx Blood Disorders: Yes Hx Anemia: Yes - INTEGUMENTARY Hx Dermatological Problems: No - MUSCULOSKELETAL/RHEUMATOLOGICAL Hx Falls: Yes - GASTROINTESTINAL Hx Gastrointestinal Disorders: No - GENITOURINARY/GYNECOLOGICAL Hx Genitourinary Disorders: No - PSYCHIATRIC Hx Emotional Abuse: No Hx Physical Abuse: No Hx Substance Use: No - SURGICAL HISTORY Other/Comment: Kidney Bx - ANESTHESIA Hx Anesthesia: Yes Hx Anesthesia Reactions: No Hx Malignant Hyperthermia: No Meds Allergies/Adverse Reactions: Allergies Allergy/AdvReac Type Severity Reaction Status Date / Time No Known Allergies Allergy Verified 01/18/17 11:56 Physical Exam - Constitutional Appears: Well, Non-toxic, No Acute Distress - Head Exam Head Exam: ATRAUMATIC, NORMAL INSPECTION - Eye Exam Eye Exam: EOMI, PERRL. absent: Scleral icterus - ENT Exam Additional comments: Nasal turbinates inflamed No cervical lymphadenopathy No oropharyngeal inflammation no tonsilar exudate - Neck Exam Neck exam: Negative for: Lymphadenopathy - Respiratory Exam Additional comments: R middle / R lower lung hodge w/ rales - Cardiovascular Exam Cardiovascular Exam: RRR, +S1, +S2 - GI/Abdominal Exam GI & Abdominal Exam: Distended, Normal Bowel Sounds, Soft - Neurological Exam Neurological exam: Alert, Oriented x3 - Psychiatric Exam Psychiatric exam: Normal Affect, Normal Mood - Skin Skin Exam: Dry, Intact, Normal Color, Warm Results - Vital Signs Recent Vital Signs: Last Vital Signs Temp 98.5 F 09/08/18 10:05 Pulse 81 09/08/18 15:30 Resp 18 09/08/18 15:30 BP 147/95 H 09/08/18 15:30 Pulse Ox 94 L 09/08/18 15:30 - Labs Result Diagrams: 09/08/18 10:58 09/08/18 10:58 Labs: Laboratory Results - last 24 hr 09/08/18 09/08/18 09/08/18 10:58 10:58 10:58 WBC 6.2 RBC 3.24 L Hgb 10.0 L Hct 32.4 L MCV 100.0 MCH 30.9 MCHC 30.9 L RDW 13.0 Plt Count 102 L MPV 13.1 H Gran % 67.2 Lymph % (Auto) 23.5 Dawes % (Auto) 7.2 H Eos % (Auto) 1.9 Baso % (Auto) 0.2 Gran # 4.18 Lymph # (Auto) 1.5 Dawes # (Auto) 0.5 Eos # (Auto) 0.1 Baso # (Auto) 0.01 pO2 91 H VBG pH 7.37 VBG pCO2 46.0 VBG HCO3 26.6 VBG Total CO2 28.0 VBG O2 Sat (Calc) 98.8 H VBG Base Excess 0.8 VBG Potassium 4.3 Sodium 140.0 142 Chloride 104.0 104 Glucose 83 Lactate 0.7 FiO2 21.0 Potassium 4.4 Carbon Dioxide 25 Anion Gap 17 BUN 68 H Creatinine 18.5 H* Est GFR ( Amer) 3 Est GFR (Non-Af Amer) 3 Random Glucose 88 Calcium 9.1 Magnesium 2.6 H Lactate Dehydrogenase 429 Total Creatine Kinase 172 Troponin I 0.03 D NT-Pro-B Natriuret Pep 2030 H Venous Blood Potassium 4.3 Assessment & Plan - Assessment and Plan (Free Text) Assessment: 52M w/a PMH of PE (on warfarin), HTN, ESRD on MWF HD, who presented to [facility] on 09/08 after an episode of shortness of breath during dialysis this morning. Patient found to have mild consolidation in RLL on CXR, and elevated Cr at time of admission. Plan: New onset SOB Less likely PE given normal O2 sat, and Normal HR; however given Hx of PE must R/O CTA-PE - negative for PE Cough + Fever URI vs PNA WBC wnl Sputum Cx pending CXR w/ mild RLL consolidation as read by me Start w/ Doxy + Merem Given borderline high QTc RENAL DOSED Trend Procal Xopenex + Mucormyst Q6H ANDREW Duoneb Q4H PRN SOB Tylenol - Fever + Pain Hx PE Follow up PT/PTT/INR Hold home warfarin 7mg QD for now Hx ESRD on MWF HD C/w HD as per nephrology C/w Home Auryxia 3gm ACTID Hx DM C/w Home Humulin 70/30 30u ACBD Fingersticks ACBD Prophylaxis: GI - Protonix DVT - Warfarin Diet - Consistent carb Case was discussed w/ attending physician Dr. Kimberly Kaye DO PGY1 - Internal Medicine Enroller - H&P for Dr. Harris Service - Date & Time Date: 09/08/18 Time: 19:49
[2018-09-08] MEDS ORDERED: MEROPENEM 500 MG in NS 500 MG/50 ML BAG IVPB SCH (18:00)
[2018-09-08] MEDS ORDERED: Albuterol-Ipratrop 3 mg / 0.5 (3 ml) UD IH PRN (19:06)
[2018-09-08] MEDS ORDERED: Levalbuterol 1.25 MG/3 ML Inhal Soln UD IH SCH (20:00)
--- NOTE | 2018-09-08 21:38 | CON ---
NEPHROLOGY CONSULTATION DATE OF CONSULTATION: 09/08/2018 HISTORY OF PRESENT ILLNESS: The patient is a 52-year-old male with past medical history of hypertension, diabetes, status post PE, on Coumadin, and ESRD, on hemodialysis (Saturday, Saturday, and Saturday since late 2015 at [facility] under [facility]), presented to ED with shortness of breath. Nephrology being consulted for ESRD care. The patient has been having cough ongoing since past 1 week. Reports sick contacts at home with some members having flu and some having strep throat. Has been having increased shortness of breath for the past 1-2 days. Still with cough with yellowish sputum production. Also reporting fever and chills. The patient otherwise with good appetite. No nausea, vomiting or diarrhea. Denies any swelling in his legs. No chest pain or palpitations. Last hemodialysis was on Saturday per routine. PAST MEDICAL HISTORY: As above, had large PE in 2018, started on Coumadin, thought to have hypercoagulable state. FAMILY HISTORY: Mother with DVT, on anticoagulation, and diabetes. Father with unknown form of cancer, . SOCIAL HISTORY: Nonsmoker. REVIEW OF SYSTEMS: CONSTITUTIONAL: Good appetite. HEENT: No sore throat. RESPIRATORY: As per HPI. CARDIOVASCULAR: No chest pain or palpitations. GI: As per HPI. : Anuric. Denies any other per urethral discharge. MUSCULOSKELETAL: Denies any aches or pains in his joints or back. NEURO: No dizziness. PHYSICAL EXAMINATION: VITAL SIGNS: This morning blood pressure 141/93, heart rate 82, respirations 18, temperature 98.5, O2 sat 97% on room air. GENERAL: No distress. Conversing coherently in full sentences. HEENT: Moist mucous membranes. Nonicteric. NECK: No cervical lymphadenopathy. RESPIRATORY: Lungs with very mild rales, otherwise clear. No rhonchi, no wheezes. CARDIOVASCULAR: Heart sounds S1 and S2 normal. No murmurs, no gallops, no rubs. GI: Abdomen soft, nontender, nondistended. : No bladder distention. EXTREMITIES: No leg edema. AV fistula with good thrill. SKIN: Warm. No cyanosis. NEURO: No resting tremor. PSYCHIATRIC: Normal mood, normal affect, and agitated. LABORATORY DATA: This morning CBC: WBC 6.2, hemoglobin 10.0, hematocrit 32.4, platelets 102,000. Chemistry Panel: Sodium 142, potassium 4.4, chloride 104, bicarb 25, BUN 68, creatinine 18.5, glucose 88, calcium 9.1, magnesium 2.6. ProBNP 2030. VBG: pH 7.37, pCO2 of 46. Chest x-ray directly visualized, lungs clear. ASSESSMENT AND PLAN: 1. End-stage renal disease, on hemodialysis. Relatively stable electrolytes and volume status. Dialyzing today for routine on 3K dialysate with 3 liters UF goal. 2. Dyspnea. The patient sent to ED by dialysis staff due to increased dyspnea. Currently is comfortable. Being ruled out for possible pneumonia. Doubt chronic obstructive pulmonary disease or congestive heart failure exacerbation. He is using antibiotics, should dose for end-stage renal disease. 3. Hypertensive end-stage renal disease. Blood pressure relatively well controlled on Coreg 12.5 mg b.i.d. Continue the same. Will benefit from UF on HD. 4. Chronic kidney disease mineral bone disorder. The patient has hyperphosphatemia lately. Currently on Auryxia 4 tablets with each meal. Should continue the same. PTH has been elevated. Started on Sensipar 30 mg after each dialysis session 3 days a week. Will continue the same. 5. Anemia of chronic kidney disease. Hemoglobin currently just at goal for chronic kidney disease (10-11 g). The patient is routinely getting iron studies every month and being given EPO per protocol. No history of bleeding despite being on therapeutic Coumadin. Thank you for this referral. We will be following up closely with you. Сергей Ramirez MD
[2018-09-08] MEDS ORDERED: Influenza Vaccine 60 mcg/0.5 mL SYR (4YR UP) IM ONE (23:33)
[2018-09-08] MEDS ORDERED: Pneumococcal 23-Valent Vaccine IM ONE (23:33)
[2018-09-08] MEDS: Acetylcysteine 20% Inhal Soln (4ml) IH SCH (23:47)
[2018-09-09 00:56] LABS: INR 1.98; PARTIAL THROMBOPLASTIN TIME 41.3 Seconds (25.1-36.5); PROTHROMBIN TIME 22.9 SECONDS (9.4-12.5)
[2018-09-09 01:03] LABS: URIC ACID 4.4 mg/dL (3.5-8.5)
[2018-09-09 01:08] LABS: IRON 56 ug/dL (45-180)
[2018-09-09 01:17] LABS: % IRON SATURATION 23 % (20-55); TOTAL IRON BINDING CAPACITY 241 ug/dL (261-462)
[2018-09-09] MEDS: Acetylcysteine 20% Inhal Soln (4ml) IH SCH ×4 (02:00→19:58)
[2018-09-09] MEDS: Levalbuterol 0.63 MG/3 ML Inhal Soln UD IH SCH ×4 (02:00→19:58)
[2018-09-09 06:51] LABS: BASO # 0.01 K/mm3 (0.0-2.0); BASO % 0.2 % (0.0-3.0); EOS # 0.1 (0.0-0.7); EOS % 2.4 % (1.5-5.0); GRAN # 3.66 (1.4-6.5); GRAN % 63.4 % (50.0-68.0); HEMOGLOBIN 10.2 g/dL (14.0-18.0); LYMPH # 1.4 (1.2-3.4); LYMPH % 23.9 % (22.0-35.0); MEAN CORPUSCULAR HEMOGLOBIN 30.8 pg (25.0-35.0); MEAN CORPUSCULAR HGB CONC 30.8 g/dl (31.0-37.0); MEAN PLATELET VOLUME 12.7 fl (7.0-11.0); MONO # 0.6 (0.1-0.6); MONO % 10.1 % (1.0-6.0); RBC 3.31 10^6/uL (3.5-6.1); RED CELL DISTRIBUTION WIDTH 13.1 % (11.5-14.5); WHITE BLOOD COUNT 5.8 10^3/uL (4.5-11.0)
[2018-09-09 07:27] LABS: FREE T4 1.13 ng/dL (0.78-2.19); T4 5.7 ug/dL (5.5-11.0)
[2018-09-09 07:34] LABS: ALBUMIN 3.9 g/dL (3.0-4.8); BILIRUBIN,DIRECT 0.5 mg/dL (0.0-0.4); CALCIUM 8.9 mg/dL (8.4-10.5)
[2018-09-09] MEDS: Insulin Lispro (humaLOG) MEDIUM Coverage SC SCH ×3 (08:25→16:28)
[2018-09-09] MEDS: FERRIC CITRATE PO SCH ×3 (10:17→16:28)
[2018-09-09] MEDS: Insulin Human NPH/Reg 70/30 Vial(3 ml) SC SCH ×2 (10:18→16:28)
--- NOTE | 2018-09-09 11:00 | CARD ---
APPROVED REPORT Date of service: 09/08/2018 EKG Measurement Heart [id number] <Conclusion> Sinus rhythm PVC NSSTW changes Q in lll
--- NOTE | 2018-09-09 11:55 | CP.PCM.PN ---
Subjective - Date & Time of Evaluation Date of Evaluation: 09/09/18 Time of Evaluation: 11:50 - Subjective Subjective: Medicine Progress Note for Dr. Harris Patient seen and examined at bedside. No acute overnight events. Patient offers no complaints at this time. Objective - Vital Signs/Intake and Output Vital Signs (last 24 hours): Temp Pulse Resp BP Pulse Ox 98.5 F 88 18 130/90 97 09/09/18 06:00 09/09/18 06:00 09/09/18 06:00 09/09/18 06:00 09/09/18 06:00 Intake and Output: 09/09/18 09/09/18 06:59 18:59 Intake Total 380 Balance 380 - Medications Medications: Current Medications Acetaminophen (Tylenol 325mg Tab) 650 mg PO Q6 PRN PRN Reason: TEMP>=99.5F Acetaminophen (Tylenol 650 Mg Supp) 650 mg RC Q6H PRN PRN Reason: TEMP>=99.5F Acetylcysteine (Acetylcysteine 20%) 4 ml IH [id number] [facility] Last Admin: 09/09/18 07:33 Dose: 4 ml Aspirin (Ecotrin) 81 mg PO DAILY [facility] Last Admin: 09/09/18 10:17 Dose: 81 mg Atorvastatin Calcium (Lipitor) 40 mg PO DIN ANDREW Benzonatate (Tessalon Perles) 200 mg PO TID [facility] Last Admin: 09/09/18 10:17 Dose: 200 mg Carvedilol (Coreg) 12.5 mg PO BID [facility] Last Admin: 09/09/18 10:17 Dose: 12.5 mg Cinacalcet (Sensipar) 30 mg PO DAILY [facility] Last Admin: 09/09/18 10:17 Dose: 30 mg Docusate Sodium (Colace) 100 mg PO TID [facility] Last Admin: 09/09/18 10:17 Dose: 100 mg Heparin Sodium (Porcine) (Heparin) 5,000 units SC Q8 [facility]; Protocol Last Admin: 09/09/18 08:09 Dose: 5,000 units Doxycycline Hyclate 100 mg/ (Sodium Chloride) 100 mls @ 100 mls/hr IVPB Q12 [facility]; Protocol Last Admin: 09/09/18 10:15 Dose: 100 mls/hr Insulin Human Lispro (Humalog Med) 0 units SC AC [facility]; Protocol Last Admin: 09/09/18 08:25 Dose: Not Given Levalbuterol HCl (Xopenex) 0.63 mg IH [id number] [facility] Last Admin: 09/09/18 07:33 Dose: 0.63 mg Non-Formulary Medication (Ferric Citrate [Auryxia]) 3 tab PO ACTID [facility] Last Admin: 09/09/18 10:17 Dose: Not Given Ondansetron HCl (Zofran Inj) 4 mg IVP Q4H PRN PRN Reason: Nausea/Vomiting Pantoprazole Sodium (Protonix Ec Tab) 40 mg PO 0600 ANDREW Warfarin Sodium (Coumadin) 5 mg PO 1800 [facility] Warfarin Sodium (Coumadin) 2 mg PO 1800 [facility] - Labs Labs: 09/09/18 06:20 09/09/18 06:20 PT 22.9 SECONDS (9.4-12.5) H 09/09/18 00:20 INR 1.98 09/09/18 00:20 APTT 41.3 Seconds (25.1-36.5) H 09/09/18 00:20 - Constitutional Appears: No Acute Distress - Head Exam Head Exam: NORMAL INSPECTION - Eye Exam Eye Exam: Normal appearance Pupil Exam: NORMAL ACCOMODATION - ENT Exam ENT Exam: Mucous Membranes Moist, Normal Exam - Neck Exam Neck Exam: Normal Inspection - Respiratory Exam Respiratory Exam: Rales. absent: Accessory Muscle Use, Decreased Breath Sounds, Rhonchi, Wheezes - Cardiovascular Exam Cardiovascular Exam: REGULAR RHYTHM, RRR - GI/Abdominal Exam GI & Abdominal Exam: Soft. absent: Distended, Guarding, Tenderness, Rebound - Extremities Exam Extremities Exam: Normal Inspection - Back Exam Back Exam: NORMAL INSPECTION - Neurological Exam Neurological Exam: Alert, Awake, CN II-XII Intact, Oriented x3 - Psychiatric Exam Psychiatric exam: Normal Affect, Normal Mood - Skin Skin Exam: Dry, Intact, Normal Color, Warm Assessment and Plan - Assessment and Plan (Free Text) Assessment: 52M w/a PMH of PE (on warfarin), HTN, ESRD on MWF HD, who presented to [facility] on 09/08 after an episode of shortness of breath during dialysis this morning. Patient found to have patchy infiltrate in R lung base on CXR. Further evaluation on going for dyspnea, will r/o pneumonia. Plan: Dyspnea - URI vs PNA - Sputum Cx pending - CXR with patchy infiltrate in right lung base - Chest CT negative for PE - Mycoplasma, strep, legionella, rsv ordered - Blood cultures ordered - Cont Doxy - Xopenex + Mucormyst Q6H ANDREW - Duoneb Q4H PRN SOB - Echo ordered - ID consulted Hx PE - Cont coumadin - INR subtherapeutic, recheck - Cardio consulted Hx ESRD on MWF HD - C/w HD as per nephrology - Cont Auryxia, Sensipar Anemia of Chronic Disease - Receiving EPO per protocol per nephro - GI consulted Hx DM - C/w Home Humulin 70/30 30u ACBD - ISS - Fingersticks ACBD Hx HLD - Cont Lipitor Hx HTN - Cont Coreg Prophylaxis: - GI - Protonix - DVT - Warfarin Diet - Consistent carb Patient was seen and discussed in detail with Dr. Harris. Mike Cuellar DO PGY2
--- NOTE | 2018-09-09 12:46 | PN ---
DATE: 09/09/2018 SUBJECTIVE: The patient is in room 569, bed 1. Yesterday the patient was seen and examined on dialysis unit, while patient was getting dialyzed. Overnight nurse's notes were reviewed. No adverse events were documented.. The patient still has symptoms of cold, cough, congestion. Denies any fever. PHYSICAL EXAMINATION: VITAL SIGNS: T-max 98.1, heart rate 81-93 per minute, blood pressure 136/89, respiration 18, O2 sat 99%. The patient's head examination normocephalic, atraumatic. HEENT examination shows pinkish pale conjunctivae. Anicteric sclerae. No oropharyngeal lesion. No neck rigidity. CHEST: Symmetrical. LUNGS: Shows positive rhonchi, crepitations, right more than the left. CARDIOVASCULAR: S1, S2, regular rhythm. Questionable soft systolic murmur left sternal border, right second intercostal space, left second intercostal space. ABDOMEN: Soft, protuberant. Positive bowel sounds. GENITALIA: Male. RECTAL: Examination is deferred. EXTREMITIES: Lower extremity shows no pitting edema, no calf tenderness, no Homans sign. Positive left upper extremity AV fistula, positive thrill noted. MUSCULOSKELETAL: Examination is as per the body mass index. NEUROLOGIC: The patient is alert, awake, responsive. No gross cranial neurological deficits noted. DIAGNOSTICS: 09/09/2018, WBC 5.8, hemoglobin/hematocrit 10.2/33.1, platelets are low at 102. PT 22.9, INR 1.98. Sodium 139, potassium 3.9, chloride 102, CO2 of 26, BUN 41, creatinine 13.4, glucose 95, calcium 8.3, phosphorus 5.3, magnesium 2.2, cholesterol 152, LDL 80, HDL is 22. Chest x-ray shows right lower lobe pneumonia. CT angiogram was negative for PE. IMPRESSION AND PLAN: 1. Right lower lobe community-acquired versus healthcare-associated pneumonia. 2. Subjective fever. 3. Possibly anemia of chronic disease. 4. Thrombocytopenia. 5. History of pulmonary embolism, Coumadin dependent. 6. End-stage renal disease, hemodialysis dependent. 7. 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 8. Borderline hyperlipidemia with decreased HDL. 9. Insulin-requiring diabetes mellitus. 10. Hypertension. 11. Hypertensive kidney disease and renal failure. 12. Obesity with elevated body mass index. 13. Shortness of breath, etiology undetermined at this time versus right lower lobe pneumonia versus cardiac causes. 14. History of hypertension. 15. Normocytic anemia. 16. Thrombocytopenia. Plan at this time, the patient is awaiting Infectious Disease, Nephrology and Cardiology evaluation. The patient's further management will be dependent upon the patient's clinical condition, hemodynamic status and as per the patient's response to therapeutic intervention. The patient will be continued on bronchodilators. The patient will be continued on broad-spectrum IV antibiotics. The patient will be continued on both basal and bolus insulin and sliding scale coverage. The patient will be continued on both GI and DVT prophylaxis. The patient will be continued on chest PT, incentive spirometer. The patient's case is referred for physical therapy, ambulation therapy, TCU evaluation.. As present, the patient's further management will be dependent upon the patient's clinical condition, hemodynamic status and as per the patient response to therapeutic intervention as per the patient's diagnostic test results and as per recommendation by all the physicians involved in the care of the patient. The patient updated about his condition, diagnosis, further diagnostic therapeutic interventions which the patient acknowledges and understands. All questions and concerns answered. Dictated and electronically signed, not read. Christopher Harris MD
[2018-09-09 13:45] LABS: FOLATE 7.3 ng/mL
--- NOTE | 2018-09-09 14:10 | CP.PCM.CON ---
<Margarito Muro - Last Filed: 09/09/18 14:02> History of Present Illness - History of Present Illness History of Present Illness: ID consult note 52 year old male with past medical history of HTN, DM, ESRD on hemodialysis MWF, and PE on warfarin presented for shortness of breath. Patient had gone to dialysis but was short of breath on arrival and subsequently went to the ED. Patient states he has been congested over the past several days along with having a headache and runny nose. Patient had rapid flu and rapid strep test outpatient which was negative. Currently patient feels well with mild congestion and improvement in shortness of breath. Denies chest pain, nausea, vomiting, compa rrhea, fever, chills, dysuria. Medical Hx: PE, HTN, ESRD, DM Surgical Hx: Left arm fistula Social Hx: Denies tobacco, alcohol, and illicit drug use Medications: Reviewed, as per MAR Allergies: NKDA Review of Systems - Review of Systems Review of Systems: 12 point ROS as per HPI, otherwise negative Past Patient History - Infectious Disease Hx of Infectious Diseases: None - Tetanus Immunizations Tetanus Immunization: Unknown - Past Medical History & Family History Past Medical History?: Yes - Past Social History Smoking Status: Never Smoked - CARDIAC Hx Cardiac Disorders: Yes (cp) Hx Angina: Yes Hx Congestive Heart Failure: Yes Hx Hypercholesterolemia: Yes Hx Hypertension: Yes Hx Peripheral Edema: Yes (ble +1) Hx Peripheral Vascular Disease: Yes - PULMONARY Hx Respiratory Disorders: Yes (pe "about a year ago") Hx Pneumonia: Yes - NEUROLOGICAL Hx Neurological Disorder: No - HEENT Hx HEENT Problems: No - RENAL Date of Last Dialysis Treatment: 09/08/18 - ENDOCRINE/METABOLIC Hx Endocrine Disorders: Yes Hx Diabetes Mellitus Type 2: Yes - HEMATOLOGICAL/ONCOLOGICAL Hx Blood Disorders: Yes Hx Anemia: Yes - INTEGUMENTARY Hx Dermatological Problems: Yes Other/Comment: b/l feet dry skin thick toenails hammeretoes 2 3 4 both feet, dry skin ble - MUSCULOSKELETAL/RHEUMATOLOGICAL Hx Falls: No - GASTROINTESTINAL Hx Gastrointestinal Disorders: Yes - GENITOURINARY/GYNECOLOGICAL Hx Genitourinary Disorders: Yes (oliguria) - PSYCHIATRIC Hx Substance Use: No - SURGICAL HISTORY Hx Surgeries: Yes Other/Comment: Kidney Bx, r chest permacath, frank av shunt 08/2013 in use for hd now - ANESTHESIA Hx Anesthesia: Yes Hx Anesthesia Reactions: No Hx Malignant Hyperthermia: No Meds Allergies/Adverse Reactions: Allergies Allergy/AdvReac Type Severity Reaction Status Date / Time No Known Allergies Allergy Verified 01/18/17 11:56 - Medications Medications: Current Medications Acetaminophen (Tylenol 325mg Tab) 650 mg PO Q6 PRN PRN Reason: TEMP>=99.5F Acetaminophen (Tylenol 650 Mg Supp) 650 mg RC Q6H PRN PRN Reason: TEMP>=99.5F Acetylcysteine (Acetylcysteine 20%) 4 ml IH [id number] [facility] Last Admin: 09/09/18 13:24 Dose: 4 ml Aspirin (Ecotrin) 81 mg PO DAILY [facility] Last Admin: 09/09/18 10:17 Dose: 81 mg Atorvastatin Calcium (Lipitor) 40 mg PO DIN [facility] Benzonatate (Tessalon Perles) 200 mg PO TID [facility] Last Admin: 09/09/18 13:56 Dose: 200 mg Carvedilol (Coreg) 12.5 mg PO BID [facility] Last Admin: 09/09/18 10:17 Dose: 12.5 mg Cinacalcet (Sensipar) 30 mg PO DAILY [facility] Last Admin: 09/09/18 10:17 Dose: 30 mg Docusate Sodium (Colace) 100 mg PO TID [facility] Last Admin: 09/09/18 13:56 Dose: 100 mg Heparin Sodium (Porcine) (Heparin) 5,000 units SC Q8 [facility]; Protocol Last Admin: 09/09/18 13:57 Dose: Not Given Doxycycline Hyclate 100 mg/ (Sodium Chloride) 100 mls @ 100 mls/hr IVPB Q12 [facility]; Protocol Last Admin: 09/09/18 10:15 Dose: 100 mls/hr Insulin Human Lispro (Humalog Med) 0 units SC AC [facility]; Protocol Last Admin: 09/09/18 11:54 Dose: Not Given Levalbuterol HCl (Xopenex) 0.63 mg IH [id number] [facility] Last Admin: 09/09/18 13:24 Dose: 0.63 mg Non-Formulary Medication (Ferric Citrate [Auryxia]) 3 tab PO ACTID [facility] Last Admin: 09/09/18 11:54 Dose: Not Given Ondansetron HCl (Zofran Inj) 4 mg IVP Q4H PRN PRN Reason: Nausea/Vomiting Pantoprazole Sodium (Protonix Ec Tab) 40 mg PO 0600 ANDREW Warfarin Sodium (Coumadin) 5 mg PO 1800 ANDREW Warfarin Sodium (Coumadin) 2 mg PO 1800 ANDREW Physical Exam - Constitutional Appears: Non-toxic, No Acute Distress - Head Exam Head Exam: ATRAUMATIC, NORMAL INSPECTION, NORMOCEPHALIC - Eye Exam Eye Exam: EOMI, Normal appearance - ENT Exam ENT Exam: Mucous Membranes Moist - Respiratory Exam Respiratory Exam: Clear to Auscultation Bilateral, NORMAL BREATHING PATTERN. absent: Rales, Rhonchi, Wheezes - Cardiovascular Exam Cardiovascular Exam: RRR, +S1, +S2 - GI/Abdominal Exam GI & Abdominal Exam: Normal Bowel Sounds, Soft. absent: Tenderness - Extremities Exam Extremities exam: Positive for: normal inspection. Negative for: calf tenderness, pedal edema - Neurological Exam Neurological exam: Alert, CN II-XII Intact, Oriented x3 - Psychiatric Exam Psychiatric exam: Normal Affect, Normal Mood - Skin Skin Exam: Intact, Normal Color, Warm Results - Vital Signs Recent Vital Signs: Last Vital Signs Temp 98.5 F 09/09/18 06:00 Pulse 88 09/09/18 06:00 Resp 18 09/09/18 06:00 BP 130/90 09/09/18 06:00 Pulse Ox 97 09/09/18 06:00 - Labs Result Diagrams: 09/09/18 06:20 09/09/18 06:20 Labs: Laboratory Results - last 24 hr 09/08/18 09/09/18 09/09/18 23:05 00:20 00:20 WBC RBC Hgb Hct MCV MCH MCHC RDW Plt Count Manual Plt Count MPV Gran % Lymph % (Auto) Brown % (Auto) Eos % (Auto) Baso % (Auto) Gran # Lymph # (Auto) Brown # (Auto) Eos # (Auto) Baso # (Auto) Retic Count PT 22.9 H INR 1.98 APTT 41.3 H Sodium Potassium Chloride Carbon Dioxide Anion Gap BUN Creatinine Est GFR ( Amer) Est GFR (Non-Af Amer) POC Glucose (mg/dL) Random Glucose Hemoglobin A1c Uric Acid Calcium Phosphorus Magnesium Iron TIBC % Saturation Ferritin Total Bilirubin Direct Bilirubin AST ALT Alkaline Phosphatase Total Protein Albumin Globulin Albumin/Globulin Ratio Triglycerides Cholesterol LDL Cholesterol Direct HDL Cholesterol Vitamin B12 Folate Procalcitonin 1.91 H Free T4 Thyroxine (T4) TSH 3rd Generation Influenza Typ A,B (EIA) Negative for flu a/b 09/09/18 09/09/18 09/09/18 00:20 00:20 00:20 WBC RBC Hgb Hct MCV MCH MCHC RDW Plt Count Manual Plt Count 107 L MPV Gran % Lymph % (Auto) Brown % (Auto) Eos % (Auto) Baso % (Auto) Gran # Lymph # (Auto) Brown # (Auto) Eos # (Auto) Baso # (Auto) Retic Count 1.21 PT INR APTT Sodium Potassium Chloride Carbon Dioxide Anion Gap BUN Creatinine Est GFR ( Amer) Est GFR (Non-Af Amer) POC Glucose (mg/dL) Random Glucose Hemoglobin A1c Uric Acid 4.4 Calcium Phosphorus Magnesium Iron 56 TIBC 241 L % Saturation 23 Ferritin 1300.0 Total Bilirubin Direct Bilirubin AST ALT Alkaline Phosphatase Total Protein Albumin Globulin Albumin/Globulin Ratio Triglycerides Cholesterol LDL Cholesterol Direct HDL Cholesterol Vitamin B12 497 Folate 7.3 Procalcitonin Free T4 Thyroxine (T4) TSH 3rd Generation Influenza Typ A,B (EIA) 09/09/18 09/09/18 09/09/18 03:15 03:51 06:20 WBC 5.8 RBC 3.31 L Hgb 10.2 L Hct 33.1 L MCV 100.0 MCH 30.8 MCHC 30.8 L RDW 13.1 Plt Count 102 L Manual Plt Count 126 MPV 12.7 H Gran % 63.4 Lymph % (Auto) 23.9 Brown % (Auto) 10.1 H Eos % (Auto) 2.4 Baso % (Auto) 0.2 Gran # 3.66 Lymph # (Auto) 1.4 Brown # (Auto) 0.6 Eos # (Auto) 0.1 Baso # (Auto) 0.01 Retic Count PT INR APTT Sodium Potassium Chloride Carbon Dioxide Anion Gap BUN Creatinine Est GFR ( Amer) Est GFR (Non-Af Amer) POC Glucose (mg/dL) 91 76 Random Glucose Hemoglobin A1c Uric Acid Calcium Phosphorus Magnesium Iron TIBC % Saturation Ferritin Total Bilirubin Direct Bilirubin AST ALT Alkaline Phosphatase Total Protein Albumin Globulin Albumin/Globulin Ratio Triglycerides Cholesterol LDL Cholesterol Direct HDL Cholesterol Vitamin B12 Folate Procalcitonin Free T4 Thyroxine (T4) TSH 3rd Generation Influenza Typ A,B (EIA) 09/09/18 09/09/18 09/09/18 06:20 06:20 06:20 WBC RBC Hgb Hct MCV MCH MCHC RDW Plt Count Manual Plt Count MPV Gran % Lymph % (Auto) Brown % (Auto) Eos % (Auto) Baso % (Auto) Gran # Lymph # (Auto) Brown # (Auto) Eos # (Auto) Baso # (Auto) Retic Count PT INR APTT Sodium 139 Potassium 3.9 Chloride 102 Carbon Dioxide 26 Anion Gap 15 BUN 41 H Creatinine 13.4 H* D Est GFR ( Amer) 5 Est GFR (Non-Af Amer) 4 POC Glucose (mg/dL) Random Glucose 95 Hemoglobin A1c 5.5 Uric Acid Calcium 8.9 Phosphorus 5.3 H Magnesium 2.2 Iron TIBC % Saturation Ferritin Total Bilirubin 0.8 Direct Bilirubin 0.5 H AST 24 ALT 22 Alkaline Phosphatase 57 Total Protein 7.7 Albumin 3.9 Globulin 3.8 Albumin/Globulin Ratio 1.0 L Triglycerides 266 H Cholesterol 152 LDL Cholesterol Direct 80 HDL Cholesterol 22 L Vitamin B12 Folate Procalcitonin 1.84 H Free T4 Thyroxine (T4) TSH 3rd Generation Influenza Typ A,B (EIA) 09/09/1818 09/09/18 06:20 06:26 11:40 WBC RBC Hgb Hct MCV MCH MCHC RDW Plt Count Manual Plt Count MPV Gran % Lymph % (Auto) Brown % (Auto) Eos % (Auto) Baso % (Auto) Gran # Lymph # (Auto) Brown # (Auto) Eos # (Auto) Baso # (Auto) Retic Count PT INR APTT Sodium Potassium Chloride Carbon Dioxide Anion Gap BUN Creatinine Est GFR ( Amer) Est GFR (Non-Af Amer) POC Glucose (mg/dL) 87 84 Random Glucose Hemoglobin A1c Uric Acid Calcium Phosphorus Magnesium Iron TIBC % Saturation Ferritin Total Bilirubin Direct Bilirubin AST ALT Alkaline Phosphatase Total Protein Albumin Globulin Albumin/Globulin Ratio Triglycerides Cholesterol LDL Cholesterol Direct HDL Cholesterol Vitamin B12 Folate Procalcitonin Free T4 1.13 Thyroxine (T4) 5.7 TSH 3rd Generation 1.77 Influenza Typ A,B (EIA) Assessment & Plan - Assessment and Plan (Free Text) Plan: Upper respiratory infection, possible bronchitis ESRD Hx of PE Hx of DM type 2 Hx of HTN Plan Patient will continue Doxycycline for URI like symptoms. We will follow blood cultures, which are negative at 24 hours. Patient will continue hemodialysis as scheduled. Patient will continue insulin for diabetes. We will continue to monitor patient. Bhaskar, PGY-3 <Ulysses Kendall - Last Filed: 09/09/18 16:41> Meds - Medications Medications: Current Medications Acetaminophen (Tylenol 325mg Tab) 650 mg PO Q6 PRN PRN Reason: TEMP>=99.5F Acetaminophen (Tylenol 650 Mg Supp) 650 mg RC Q6H PRN PRN Reason: TEMP>=99.5F Acetylcysteine (Acetylcysteine 20%) 4 ml IH [id number] [facility] Last Admin: 09/09/18 13:24 Dose: 4 ml Aspirin (Ecotrin) 81 mg PO DAILY [facility] Last Admin: 09/09/18 10:17 Dose: 81 mg Atorvastatin Calcium (Lipitor) 40 mg PO DIN [facility] Benzonatate (Tessalon Perles) 200 mg PO TID [facility] Last Admin: 09/09/18 13:56 Dose: 200 mg Carvedilol (Coreg) 12.5 mg PO BID [facility] Last Admin: 09/09/18 10:17 Dose: 12.5 mg Cinacalcet (Sensipar) 30 mg PO DAILY [facility] Last Admin: 09/09/18 10:17 Dose: 30 mg Docusate Sodium (Colace) 100 mg PO TID [facility] Last Admin: 09/09/18 13:56 Dose: 100 mg Heparin Sodium (Porcine) (Heparin) 5,000 units SC Q8 [facility]; Protocol Last Admin: 09/09/18 13:57 Dose: Not Given Doxycycline Hyclate 100 mg/ (Sodium Chloride) 100 mls @ 100 mls/hr IVPB Q12 [facility]; Protocol Last Admin: 09/09/18 10:15 Dose: 100 mls/hr Insulin Human Lispro (Humalog Med) 0 units SC AC [facility]; Protocol Last Admin: 09/09/18 16:28 Dose: Not Given Levalbuterol HCl (Xopenex) 0.63 mg IH [id number] [facility] Last Admin: 09/09/18 13:24 Dose: 0.63 mg Non-Formulary Medication (Ferric Citrate [Auryxia]) 3 tab PO ACTID [facility] Last Admin: 09/09/18 16:28 Dose: Not Given Ondansetron HCl (Zofran Inj) 4 mg IVP Q4H PRN PRN Reason: Nausea/Vomiting Pantoprazole Sodium (Protonix Ec Tab) 40 mg PO 0600 ANDREW Warfarin Sodium (Coumadin) 5 mg PO 1800 ANDREW Warfarin Sodium (Coumadin) 2 mg PO 1800 ANDREW Results - Vital Signs Recent Vital Signs: Last Vital Signs Temp 98.5 F 09/09/18 06:00 Pulse 88 09/09/18 06:00 Resp 18 09/09/18 06:00 BP 130/90 09/09/18 06:00 Pulse Ox 97 09/09/18 06:00 - Labs Result Diagrams: 09/09/18 06:20 09/09/18 06:20 Labs: Laboratory Results - last 24 hr 09/08/18 09/09/18 09/09/18 23:05 00:20 00:20 WBC RBC Hgb Hct MCV MCH MCHC RDW Plt Count Manual Plt Count MPV Gran % Lymph % (Auto) Brown % (Auto) Eos % (Auto) Baso % (Auto) Gran # Lymph # (Auto) Brown # (Auto) Eos # (Auto) Baso # (Auto) Retic Count PT 22.9 H INR 1.98 APTT 41.3 H Sodium Potassium Chloride Carbon Dioxide Anion Gap BUN Creatinine Est GFR ( Amer) Est GFR (Non-Af Amer) POC Glucose (mg/dL) Random Glucose Hemoglobin A1c Uric Acid Calcium Phosphorus Magnesium Iron TIBC % Saturation Ferritin Total Bilirubin Direct Bilirubin AST ALT Alkaline Phosphatase Total Protein Albumin Globulin Albumin/Globulin Ratio Triglycerides Cholesterol LDL Cholesterol Direct HDL Cholesterol Vitamin B12 Folate Procalcitonin 1.91 H Free T4 Thyroxine (T4) TSH 3rd Generation Influenza Typ A,B (EIA) Negative for flu a/b 09/09/18 09/09/18 09/09/18 00:20 00:20 00:20 WBC RBC Hgb Hct MCV MCH MCHC RDW Plt Count Manual Plt Count 107 L MPV Gran % Lymph % (Auto) Brown % (Auto) Eos % (Auto) Baso % (Auto) Gran # Lymph # (Auto) Brown # (Auto) Eos # (Auto) Baso # (Auto) Retic Count 1.21 PT INR APTT Sodium Potassium Chloride Carbon Dioxide Anion Gap BUN Creatinine Est GFR ( Amer) Est GFR (Non-Af Amer) POC Glucose (mg/dL) Random Glucose Hemoglobin A1c Uric Acid 4.4 Calcium Phosphorus Magnesium Iron 56 TIBC 241 L % Saturation 23 Ferritin 1300.0 Total Bilirubin Direct Bilirubin AST ALT Alkaline Phosphatase Total Protein Albumin Globulin Albumin/Globulin Ratio Triglycerides Cholesterol LDL Cholesterol Direct HDL Cholesterol Vitamin B12 497 Folate 7.3 Procalcitonin Free T4 Thyroxine (T4) TSH 3rd Generation Influenza Typ A,B (EIA) 09/09/18 09/09/18 09/09/18 03:15 03:51 06:20 WBC 5.8 RBC 3.31 L Hgb 10.2 L Hct 33.1 L MCV 100.0 MCH 30.8 MCHC 30.8 L RDW 13.1 Plt Count 102 L Manual Plt Count 126 MPV 12.7 H Gran % 63.4 Lymph % (Auto) 23.9 Brown % (Auto) 10.1 H Eos % (Auto) 2.4 Baso % (Auto) 0.2 Gran # 3.66 Lymph # (Auto) 1.4 Brown # (Auto) 0.6 Eos # (Auto) 0.1 Baso # (Auto) 0.01 Retic Count PT INR APTT Sodium Potassium Chloride Carbon Dioxide Anion Gap BUN Creatinine Est GFR ( Amer) Est GFR (Non-Af Amer) POC Glucose (mg/dL) 91 76 Random Glucose Hemoglobin A1c Uric Acid Calcium Phosphorus Magnesium Iron TIBC % Saturation Ferritin Total Bilirubin Direct Bilirubin AST ALT Alkaline Phosphatase Total Protein Albumin Globulin Albumin/Globulin Ratio Triglycerides Cholesterol LDL Cholesterol Direct HDL Cholesterol Vitamin B12 Folate Procalcitonin Free T4 Thyroxine (T4) TSH 3rd Generation Influenza Typ A,B (EIA) 09/09/18 09/09/18 09/09/18 06:20 06:20 06:20 WBC RBC Hgb Hct MCV MCH MCHC RDW Plt Count Manual Plt Count MPV Gran % Lymph % (Auto) Brown % (Auto) Eos % (Auto) Baso % (Auto) Gran # Lymph # (Auto) Brown # (Auto) Eos # (Auto) Baso # (Auto) Retic Count PT INR APTT Sodium 139 Potassium 3.9 Chloride 102 Carbon Dioxide 26 Anion Gap 15 BUN 41 H Creatinine 13.4 H* D Est GFR ( Amer) 5 Est GFR (Non-Af Amer) 4 POC Glucose (mg/dL) Random Glucose 95 Hemoglobin A1c 5.5 Uric Acid Calcium 8.9 Phosphorus 5.3 H Magnesium 2.2 Iron TIBC % Saturation Ferritin Total Bilirubin 0.8 Direct Bilirubin 0.5 H AST 24 ALT 22 Alkaline Phosphatase 57 Total Protein 7.7 Albumin 3.9 Globulin 3.8 Albumin/Globulin Ratio 1.0 L Triglycerides 266 H Cholesterol 152 LDL Cholesterol Direct 80 HDL Cholesterol 22 L Vitamin B12 Folate Procalcitonin 1.84 H Free T4 Thyroxine (T4) TSH 3rd Generation Influenza Typ A,B (EIA) 09/09/18 09/09/18 09/09/18 06:20 06:26 11:40 WBC RBC Hgb Hct MCV MCH MCHC RDW Plt Count Manual Plt Count MPV Gran % Lymph % (Auto) Brown % (Auto) Eos % (Auto) Baso % (Auto) Gran # Lymph # (Auto) Brown # (Auto) Eos # (Auto) Baso # (Auto) Retic Count PT INR APTT Sodium Potassium Chloride Carbon Dioxide Anion Gap BUN Creatinine Est GFR ( Amer) Est GFR (Non-Af Amer) POC Glucose (mg/dL) 87 84 Random Glucose Hemoglobin A1c Uric Acid Calcium Phosphorus Magnesium Iron TIBC % Saturation Ferritin Total Bilirubin Direct Bilirubin AST ALT Alkaline Phosphatase Total Protein Albumin Globulin Albumin/Globulin Ratio Triglycerides Cholesterol LDL Cholesterol Direct HDL Cholesterol Vitamin B12 Folate Procalcitonin Free T4 1.13 Thyroxine (T4) 5.7 TSH 3rd Generation 1.77 Influenza Typ A,B (EIA) 09/09/18 16:22 WBC RBC Hgb Hct MCV MCH MCHC RDW Plt Count Manual Plt Count MPV Gran % Lymph % (Auto) Brown % (Auto) Eos % (Auto) Baso % (Auto) Gran # Lymph # (Auto) Brown # (Auto) Eos # (Auto) Baso # (Auto) Retic Count PT INR APTT Sodium Potassium Chloride Carbon Dioxide Anion Gap BUN Creatinine Est GFR ( Amer) Est GFR (Non-Af Amer) POC Glucose (mg/dL) 79 Random Glucose Hemoglobin A1c Uric Acid Calcium Phosphorus Magnesium Iron TIBC % Saturation Ferritin Total Bilirubin Direct Bilirubin AST ALT Alkaline Phosphatase Total Protein Albumin Globulin Albumin/Globulin Ratio Triglycerides Cholesterol LDL Cholesterol Direct HDL Cholesterol Vitamin B12 Folate Procalcitonin Free T4 Thyroxine (T4) TSH 3rd Generation Influenza Typ A,B (EIA) Assessment & Plan - Assessment and Plan (Free Text) Plan: Infectious diseases Attending Physician Attestation Patient seen and examined, discussed with certified medical transcriptionist. I have reviewed the patient's history of present illness, past medical, social, personal and family histories, pertinent physical exam findings, course so far in this hospital admission, pertinent laboratory and imaging results. I agree with the above findings, assessment and plan. In addition, will continue patient on Doxycycline for possible acute bronchitis and monitor clinically. CT chest reviewed - no pneumonia.
--- NOTE | 2018-09-09 16:48 | CP.PCM.APN ---
Subjective - Date & Time of Evaluation Date of Evaluation: 09/09/18 Time of Evaluation: 13:00 - Subjective Subjective: A 52 year old male, whose past medical history includes diabetes, dialysis(/Sat, last session was Saturday), presents to the emergency department complaining of shortness of breath for the past 5 days. Patient reports he went for dialysis, and prior to starting session, mentioned that he is feeling shortness of breath, and was immediately sent to the ER without having dialysis performed yet. Admitted for Pneumonia, currently undergoing work up. Pt. seen and examined at bedside. States he has had a cold since last week and is feeling congested. Patient notes also experiencing cough with phlegm, however denies any chest p ain, nausea, vomiting, chills (had before but not now), or any other complaints at this time. Review of Systems - Constitutional Constitutional: As Per HPI - EENT Eyes: As Per HPI Ears: As Per HPI Nose/Mouth/Throat: As Per HPI - Cardiovascular Cardiovascular: As Per HPI - Respiratory Respiratory: As Per HPI - Gastrointestinal Gastrointestinal: As Per HPI - Genitourinary Genitourinary: As Per HPI - Reproductive: Male Reproductive:Male: As Per HPI - Musculoskeletal Musculoskeletal: As Per HPI - Integumentary Integumentary: As Per HPI - Neurological Neurological: As Per HPI - Endocrine Endocrine: As Per HPI - Hematologic/Lymphatic Hematologic: As Per HPI Objective - Vital Signs/Intake and Output Vital Signs (last 24 hours): Temp Pulse Resp BP Pulse Ox 98.5 F 88 18 130/90 97 09/09/18 06:00 09/09/18 06:00 09/09/18 06:00 09/09/18 06:00 09/09/18 06:00 Intake and Output: 09/09/18 09/09/18 06:59 18:59 Intake Total 380 Balance 380 - Medications Medications: Current Medications Acetaminophen (Tylenol 325mg Tab) 650 mg PO Q6 PRN PRN Reason: TEMP>=99.5F Acetaminophen (Tylenol 650 Mg Supp) 650 mg RC Q6H PRN PRN Reason: TEMP>=99.5F Acetylcysteine (Acetylcysteine 20%) 4 ml IH Q2WCLOB [facility] Last Admin: 09/09/18 13:24 Dose: 4 ml Aspirin (Ecotrin) 81 mg PO DAILY [facility] Last Admin: 09/09/18 10:17 Dose: 81 mg Atorvastatin Calcium (Lipitor) 40 mg PO DIN [facility] Benzonatate (Tessalon Perles) 200 mg PO TID [facility] Last Admin: 09/09/18 13:56 Dose: 200 mg Carvedilol (Coreg) 12.5 mg PO BID [facility] Last Admin: 09/09/18 10:17 Dose: 12.5 mg Cinacalcet (Sensipar) 30 mg PO DAILY [facility] Last Admin: 09/09/18 10:17 Dose: 30 mg Docusate Sodium (Colace) 100 mg PO TID [facility] Last Admin: 09/09/18 13:56 Dose: 100 mg Heparin Sodium (Porcine) (Heparin) 5,000 units SC Q8 [facility]; Protocol Last Admin: 09/09/18 13:57 Dose: Not Given Doxycycline Hyclate 100 mg/ (Sodium Chloride) 100 mls @ 100 mls/hr IVPB Q12 [facility]; Protocol Last Admin: 09/09/18 10:15 Dose: 100 mls/hr Insulin Human Lispro (Humalog Med) 0 units SC AC [facility]; Protocol Last Admin: 09/09/18 16:28 Dose: Not Given Levalbuterol HCl (Xopenex) 0.63 mg IH [id number] [facility] Last Admin: 09/09/18 13:24 Dose: 0.63 mg Non-Formulary Medication (Ferric Citrate [Auryxia]) 3 tab PO ACTID [facility] Last Admin: 09/09/18 16:28 Dose: Not Given Ondansetron HCl (Zofran Inj) 4 mg IVP Q4H PRN PRN Reason: Nausea/Vomiting Pantoprazole Sodium (Protonix Ec Tab) 40 mg PO 0600 [facility] Warfarin Sodium (Coumadin) 5 mg PO 1800 [facility] Warfarin Sodium (Coumadin) 2 mg PO 1800 [facility] - Labs Labs: 09/09/18 06:20 09/09/18 06:20 PT 22.9 SECONDS (9.4-12.5) H 09/09/18 00:20 INR 1.98 09/09/18 00:20 APTT 41.3 Seconds (25.1-36.5) H 09/09/18 00:20 - Constitutional Appears: Well - Head Exam Head Exam: NORMAL INSPECTION - Eye Exam Eye Exam: Normal appearance - ENT Exam ENT Exam: Mucous Membranes Moist - Respiratory Exam Respiratory Exam: NORMAL BREATHING PATTERN - Cardiovascular Exam Cardiovascular Exam: REGULAR RHYTHM, +S1, +S2 - Rectal Exam Rectal Exam: Deferred - Extremities Exam Extremities Exam: Full ROM - Back Exam Back Exam: NORMAL INSPECTION Assessment and Plan - Assessment and Plan (Free Text) Assessment: Impressions Chest X-Ray 09/08/18 10:46 IMPRESSION: Borderline patchy airspace disease right base with remainder nonacute. Limited inspiratory effort. Chest CT 09/08/18 14:18 IMPRESSION: Unremarkable CT pulmonary angiogram. No pulmonary embolus. Laboratory Results WBC 5.8 10^3/uL (4.5-11.0) 09/09/18 06:20 RBC 3.31 10^6/uL (3.5-6.1) L 09/09/18 06:20 Hgb 10.2 g/dL (14.0-18.0) L 09/09/18 06:20 Hct 33.1 % (42.0-52.0) L 09/09/18 06:20 MCV 100.0 fl (80.0-105.0) 09/09/18 06:20 MCH 30.8 pg (25.0-35.0) 09/09/18 06:20 MCHC 30.8 g/dl (31.0-37.0) L 09/09/18 06:20 RDW 13.1 % (11.5-14.5) 09/09/18 06:20 Plt Count 102 10^3/uL (120.0-450.0) L 09/09/18 06:20 Manual Plt Count 126 K/mm3 (120-450) 09/09/18 06:20 MPV 12.7 fl (7.0-11.0) H 09/09/18 06:20 Gran % 63.4 % (50.0-68.0) 09/09/18 06:20 Lymph % (Auto) 23.9 % (22.0-35.0) 09/09/18 06:20 Wheeler % (Auto) 10.1 % (1.0-6.0) H 09/09/18 06:20 Eos % (Auto) 2.4 % (1.5-5.0) 09/09/18 06:20 Baso % (Auto) 0.2 % (0.0-3.0) 09/09/18 06:20 Gran # 3.66 (1.4-6.5) 09/09/18 06:20 Lymph # (Auto) 1.4 (1.2-3.4) 09/09/18 06:20 Wheeler # (Auto) 0.6 (0.1-0.6) 09/09/18 06:20 Eos # (Auto) 0.1 (0.0-0.7) 09/09/18 06:20 Baso # (Auto) 0.01 K/mm3 (0.0-2.0) 09/09/18 06:20 Retic Count 1.21 % (0.5-1.5) 09/09/18 00:20 PT 22.9 SECONDS (9.4-12.5) H 09/09/18 00:20 INR 1.98 09/09/18 00:20 APTT 41.3 Seconds (25.1-36.5) H 09/09/18 00:20 pO2 91 mm/Hg (30-55) H 09/08/18 10:58 VBG pH 7.37 (7.32-7.43) 09/08/18 10:58 VBG pCO2 46.0 (40-60) 09/08/18 10:58 VBG HCO3 26.6 mmol/l (21-28) 09/08/18 10:58 VBG Total CO2 28.0 mmol.L (22-28) 09/08/18 10:58 VBG O2 Sat (Calc) 98.8 % (40-65) H 09/08/18 10:58 VBG Base Excess 0.8 mmol/L (0.0-2.0) 09/08/18 10:58 VBG Potassium 4.3 mmol/L (3.6-5.2) 09/08/18 10:58 Sodium 140.0 mmol/L (132-148) 09/08/18 10:58 Chloride 104.0 mmol/L (98-107) 09/08/18 10:58 Glucose 83 mg/dl (75-110) 09/08/18 10:58 Lactate 0.7 mmol/L (0.7-2.1) 09/08/18 10:58 FiO2 21.0 % 09/08/18 10:58 Sodium 139 mmol/L (132-148) 09/09/18 06:20 Potassium 3.9 mmol/L (3.6-5.0) 09/09/18 06:20 Chloride 102 mmol/L (98-107) 09/09/18 06:20 Carbon Dioxide 26 mmol/L (21-33) 09/09/18 06:20 Anion Gap 15 (10-20) 09/09/18 06:20 BUN 41 mg/dL (7-21) H 09/09/18 06:20 Creatinine 13.4 mg/dl (0.8-1.5) H* D 09/09/18 06:20 Est GFR ( Amer) 5 09/09/18 06:20 Est GFR (Non-Af Amer) 4 09/09/18 06:20 POC Glucose (mg/dL) 79 mg/dL (65-110) 09/09/18 16:22 Random Glucose 95 mg/dL (70-110) 09/09/18 06:20 Hemoglobin A1c 5.5 % (4.2-6.5) 09/09/18 06:20 Uric Acid 4.4 mg/dL (3.5-8.5) 09/09/18 00:20 Calcium 8.9 mg/dL (8.4-10.5) 09/09/18 06:20 Phosphorus 5.3 mg/dL (2.5-4.5) H 09/09/18 06:20 Magnesium 2.2 mg/dL (1.7-2.2) 09/09/18 06:20 Iron 56 ug/dL (45-180) 09/09/18 00:20 TIBC 241 ug/dL (261-462) L 09/09/18 00:20 % Saturation 23 % (20-55) 09/09/18 00:20 Ferritin 1300.0 ng/mL 09/09/18 00:20 Total Bilirubin 0.8 mg/dL (0.2-1.3) 09/09/18 06:20 Direct Bilirubin 0.5 mg/dL (0.0-0.4) H 09/09/18 06:20 AST 24 U/L (17-59) 09/09/18 06:20 ALT 22 U/L (7-56) 09/09/18 06:20 Alkaline Phosphatase 57 U/L (38-126) 09/09/18 06:20 Lactate Dehydrogenase 429 U/L (333-699) 09/08/18 10:58 Total Creatine Kinase 172 U/L (35-230) 09/08/18 10:58 Troponin I 0.03 ng/mL D 09/08/18 10:58 NT-Pro-B Natriuret Pep 2030 pg/mL (0-450) H 09/08/18 10:58 Total Protein 7.7 g/dL (5.8-8.3) 09/09/18 06:20 Albumin 3.9 g/dL (3.0-4.8) 09/09/18 06:20 Globulin 3.8 gm/dL 09/09/18 06:20 Albumin/Globulin Ratio 1.0 (1.1-1.8) L 09/09/18 06:20 Triglycerides 266 mg/dL (35-160) H 09/09/18 06:20 Cholesterol 152 mg/dL (130-200) 09/09/18 06:20 LDL Cholesterol Direct 80 mg/dL (0-129) 09/09/18 06:20 HDL Cholesterol 22 mg/dL (29-60) L 09/09/18 06:20 Vitamin B12 497 pg/mL (239-931) 09/09/18 00:20 Folate 7.3 ng/mL 09/09/18 00:20 Procalcitonin 1.84 NG/ML (0.19-0.49) H 09/09/18 06:20 Free T4 1.13 ng/dL (0.78-2.19) 09/09/18 06:20 Thyroxine (T4) 5.7 ug/dL (5.5-11.0) 09/09/18 06:20 TSH 3rd Generation 1.77 mIU/mL (0.46-4.68) 09/09/18 06:20 Venous Blood Potassium 4.3 mmol/L (3.6-5.2) 09/08/18 10:58 Influenza Typ A,B (EIA) Negative for flu a/b (NEGATIVE) 09/08/18 23:05 1. Pneumonia, right lower lobe, with patchy airspace disease Continue IV Doxy as per I.d. awaiting results of blood cx, and sputum cx. 2. CRF- Receiving HD as per deputy general counsel. 3. Dyspnea likely secondary to pneumonia. Continue to monitor respiratory status. Continue to monitor clinical status and follow closely.
--- NOTE | 2018-09-09 18:15 | CON ---
CARDIOLOGY CONSULTATION DATE OF CONSULTATION: 09/09/2018 HISTORY: The patient is a 52-year-old male who presents with shortness of breath. Apparently, the patient suffers from end-stage renal disease, on dialysis. In addition, he suffers from diabetes mellitus, hypertension, and is on Coumadin for previous pulmonary embolism. His stress test done several years ago reveals good LV function with no significant obstructive coronary disease. He denies angina. SOCIAL HISTORY: The patient does not smoke. REVIEW OF SYSTEMS: A 14-point review of systems is reviewed in detail. No additional cardiac symptoms are noted. PHYSICAL EXAMINATION: VITAL SIGNS: Blood pressure is 130/90 and heart rate is in the 80s. NECK: Negative JVD. LUNGS: Without rales. HEART: S1 and S2. EXTREMITIES: Without edema. LABORATORY DATA: Hemoglobin of 10.2. Chemistries: Potassium is 3.9. The troponin is 0.03. EKG reveals normal sinus rhythm with nonspecific ST-T changes. CT of the chest reveals no evidence for pulmonary embolism. IMPRESSION: 1. Dyspnea. 2. Secondary to acute diastolic congestive heart failure. 3. End-stage renal disease. 4. History of pulmonary embolism. 5. Diabetes mellitus. 6. Hypertension. PLAN: Given these findings, the patient's breathing is much improved after dialysis. No further cardiac workup is necessary at this time. We will arrange for an outpatient stress test given that the patient is enrolling in the renal transplant program, which will require a stress test prior to being listed on the transplant list. Reece Lima MD
--- NOTE | 2018-09-09 18:30 | CON ---
DATE OF CONSULTATION: 09/09/2018 REQUESTING PHYSICIAN: Christopher Harris MD REASON FOR CONSULTATION: I have been asked to see this 52-year-old male with end-stage renal disease, on hemodialysis, who comes to the hospital with increasing shortness of breath prior to his routine dialysis session. The patient has had a cough, fever and headache for the last several days. His cough is productive of yellowish sputum. He has also had nasal congestion, fevers and chills with headaches. I have been asked to see this patient for anemia. He does have a history of chronic anemia with his hemoglobin baseline at 10. He denies any rectal bleeding, melena, nausea, vomiting or hematemesis. PAST MEDICAL HISTORY: As above, he has a history of hypertension; end-stage renal disease, on hemodialysis Saturday, Saturday, and Saturday; pulmonary embolus, on warfarin. PAST SURGICAL HISTORY: Notable for left upper extremity fistula placement. FAMILY HISTORY: Noncontributory. SOCIAL HISTORY: Denies cigarette smoking or alcohol use. MEDICATIONS AT HOME: Warfarin 7 mg daily, Humulin insulin, ferric citrate, Sensipar and carvedilol. REVIEW OF SYSTEMS: A 14-point review of systems is notable for cough, chest tightness, shortness of breath. PHYSICAL EXAMINATION: GENERAL: Well-developed male, lying in bed in no acute distress. VITAL SIGNS: Temperature of 98.5, blood pressure 130/90, heart rate of 88. HEENT: Reveal sclerae to be white. Conjunctivae pink. NECK: Supple. CHEST: Lungs are clear. HEART: Regular rate and rhythm. ABDOMEN: Soft, nontender. No mass. EXTREMITIES: Show an AV fistula in his left arm. DIAGNOSTIC DATA: CT scan of the chest is negative for infiltrates or pulmonary embolus. LABORATORY DATA: Hemoglobin 10.2, white blood cell count 5.8, reticulocyte count 1.2. Chemistries reveal BUN 41, creatinine 13.4. Iron saturation is 23%. IMPRESSION: 1. A 52-year-old male admitted to the hospital with cough productive of yellowish sputum, shortness of breath, fever, chills, headache, most likely representing an upper respiratory tract infection versus possible acute bronchitis. 2. Chronic anemia. His iron levels are normal. I suspect that this is the anemia of chronic disease. He did have a colonoscopy within the last 2 years, which was unremarkable. RECOMMENDATIONS: 1. Continue treatment for his upper respiratory tract infection and bronchitis. 2. The patient can have an elective upper endoscopy as an outpatient if he is agreeable to this. Jovanny Ozuna MD
--- NOTE | 2018-09-09 23:02 | CP.PCM.PN ---
Subjective - Date & Time of Evaluation Date of Evaluation: 09/09/18 Time of Evaluation: 11:00 - Subjective Subjective: Patient reports feeling well; no sob; still with cough; tolerating diet; Objective - Vital Signs/Intake and Output Vital Signs (last 24 hours): Temp Pulse Resp BP Pulse Ox 98.5 F 88 18 130/90 97 09/09/18 06:00 09/09/18 06:00 09/09/18 06:00 09/09/18 06:00 09/09/18 06:00 Intake and Output: 09/09/18 09/10/18 18:59 06:59 Intake Total 480 Balance 480 - Medications Medications: Current Medications Acetaminophen (Tylenol 325mg Tab) 650 mg PO Q6 PRN PRN Reason: TEMP>=99.5F Acetaminophen (Tylenol 650 Mg Supp) 650 mg RC Q6H PRN PRN Reason: TEMP>=99.5F Acetylcysteine (Acetylcysteine 20%) 4 ml IH [id number] [facility] Last Admin: 09/09/18 19:58 Dose: 4 ml Aspirin (Ecotrin) 81 mg PO DAILY [facility] Last Admin: 09/09/18 10:17 Dose: 81 mg Atorvastatin Calcium (Lipitor) 40 mg PO DIN [facility] Last Admin: 09/09/18 17:06 Dose: 40 mg Benzonatate (Tessalon Perles) 200 mg PO TID [facility] Last Admin: 09/09/18 17:07 Dose: 200 mg Carvedilol (Coreg) 12.5 mg PO BID [facility] Last Admin: 09/09/18 17:06 Dose: 12.5 mg Cinacalcet (Sensipar) 30 mg PO DAILY [facility] Last Admin: 09/09/18 10:17 Dose: 30 mg Docusate Sodium (Colace) 100 mg PO TID [facility] Last Admin: 09/09/18 17:06 Dose: 100 mg Doxycycline Hyclate 100 mg/ (Sodium Chloride) 100 mls @ 100 mls/hr IVPB Q12 [facility]; Protocol Last Admin: 09/09/18 22:20 Dose: 100 mls/hr Insulin Human Lispro (Humalog Med) 0 units SC AC [facility]; Protocol Last Admin: 09/09/18 16:28 Dose: Not Given Levalbuterol HCl (Xopenex) 0.63 mg IH [id number] [facility] Last Admin: 09/09/18 19:58 Dose: 0.63 mg Non-Formulary Medication (Ferric Citrate [Auryxia]) 3 tab PO ACTID [facility] Last Admin: 09/09/18 16:28 Dose: Not Given Ondansetron HCl (Zofran Inj) 4 mg IVP Q4H PRN PRN Reason: Nausea/Vomiting Pantoprazole Sodium (Protonix Ec Tab) 40 mg PO 0600 [facility] Warfarin Sodium (Coumadin) 5 mg PO 1800 [facility] Last Admin: 09/09/18 17:06 Dose: 5 mg Warfarin Sodium (Coumadin) 2 mg PO 1800 [facility] Last Admin: 09/09/18 17:06 Dose: 2 mg - Labs Labs: 09/09/18 06:20 09/09/18 06:20 PT 22.9 SECONDS (9.4-12.5) H 09/09/18 00:20 INR 1.98 09/09/18 00:20 APTT 41.3 Seconds (25.1-36.5) H 09/09/18 00:20 - Constitutional Appears: Non-toxic, No Acute Distress - Eye Exam Eye Exam: Normal appearance - Respiratory Exam Respiratory Exam: Clear to Ausculation Bilateral. absent: Respiratory Distress - Cardiovascular Exam Cardiovascular Exam: RRR, +S1, +S2 - GI/Abdominal Exam GI & Abdominal Exam: Soft. absent: Distended, Tenderness - Extremities Exam Additional comments: no leg edema; - Neurological Exam Neurological Exam: Alert, Awake - Psychiatric Exam Psychiatric exam: Normal Mood. absent: Agitated - Skin Skin Exam: Warm. absent: Cyanosis Assessment and Plan (1) ESRD (end stage renal disease) on dialysis Assessment & Plan: Relatively stable volume and electrolyte status; next HD for tomorrow per routine with 2.5L net UF goal; checking post-BUN; Status: Chronic (2) Chronic kidney disease-mineral and bone disorder Assessment & Plan: Phos controlled lately, had been on auryxia 4 tabs w/ meals, continue same; will continue with sensipar 30 mg on HD days for secondary hyperparathyroidism; Status: Chronic (3) Hypertensive CKD, ESRD on dialysis Assessment & Plan: BP controlled on current meds, continue same; Status: Chronic (4) Anemia in chronic kidney disease (CKD) Assessment & Plan: Hgb at goal; will monitor and continue EPO per outpatient protocol; Status: Chronic
[2018-09-10] MEDS: Levalbuterol 0.63 MG/3 ML Inhal Soln UD IH SCH ×4 (01:23→20:42)
[2018-09-10] MEDS: Acetylcysteine 20% Inhal Soln (4ml) IH SCH ×4 (01:23→20:42)
--- NOTE | 2018-09-10 01:24 | HP ---
DATE OF EXAM: 09/08/2018 HISTORY OF PRESENT ILLNESS: The patient was seen in the emergency room, bed 2 and then the patient was seen later in the hemodialysis unit. The patient is a 52-year-old male who presented to the emergency room in the late morning hours. The patient came to the emergency room as a walk-in complaining of shortness of breath, cold and cough symptoms. The patient does report exposure to some sick contact in the family. The patient complained of shortness of breath for 5 weeks. The patient complained of congestion, coughing and subjective fever. The patient said he had these cold and cough symptoms for 5 days. The patient was seen by his PMD, was tested for strep throat, influenza, both were negative. The patient also continued with the above symptoms. The patient came to the emergency room from the dialysis unit, but the patient's symptoms did not improve. The patient reports that the patient did have previously in contact with multiple family members who have similar symptoms. The patient came to the dialysis unit first, but because of the patient's symptoms, the patient did not get dialysis and the patient was sent to the emergency room for evaluation. CODE STATUS: Full code. LIVING WILL ADVANCE DIRECTIVE: None. ALLERGIES: NONE. Height is 5 feet 11 inches. BMI is 29. HOME MEDICATIONS: Sensipar 30 mg daily, insulin 70/30, 30 units twice a day, Coumadin 7 mg daily, Coreg 12.5 twice a day, ferric citrate one, 210 mg three times a day. PAST MEDICAL AND SURGICAL HISTORY: Significant for end-stage renal disease, hemodialysis dependent, history of multiple bilateral pulmonary embolism, history of hypertension, history of hyperlipidemia, history of iron-deficiency anemia, history of secondary hyperparathyroidism, history of insulin-requiring diabetes mellitus, history of questionable congestive heart failure, history of peripheral vascular disease, history of right upper chest PermCath placement and removal, history of left upper extremity AV fistula, history of gastric ulcer, history of renal failure, history of end-stage renal disease, hemodialysis dependent three times a week, history of pulmonary embolism. The patient's past medical history is significant for history of anemia, history of proteinuria, history of pyuria, history of extensive bilateral pulmonary embolism in 2017, history of CT-guided left renal cortex biopsy, history of normal myocardial perfusion study SPECT test with left ventricle ejection fraction of 55%, history of bilateral renal cyst, history of lower extremity venous stasis, history of arthritis of the feet and ankle, history of diabetic nephropathy with nodular glomerulosclerosis with moderate to severe interstitial fibrosis and vascular sclerosis including arteriosclerosis, history of left ventricle ejection fraction of 69%, history of concentric left ventricle hypertrophy, history of grade 3 at reversible restrictive diastolic dysfunction, history of mildly dilated right ventricle, history of mildly reduced right ventricular systolic function, history of moderately sclerotic aortic valve, history of moderate aortic regurgitation, history of moderate mitral annular calcification, history of mild mitral regurgitation, history of mild tricuspid regurgitation, history of mild aortic regurgitation, history of internal hemorrhoids, history of colonoscopy done in January 2017. FAMILY HISTORY: Positive for hypertension, diabetes, heart problems. 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 The patient was seen and examined. SOCIAL HISTORY: He never smoked. Denies smoking. Denies alcohol. Denies drug use. Denies substance abuse. PHYSICAL EXAMINATION GENERAL: The patient is seen sitting up in the bed. VITAL SIGNS: T-max 98.5 to 98.1, heart rate 82 to 86. Blood pressure 141/93, 138/78, 147/95, respiration 18, O2 sat was noted to be 97%, 96%, 98%. HEENT: Head is normocephalic, atraumatic. HEENT examination shows pinkish pale conjunctivae. Anicteric sclerae. No oropharyngeal lesion. NECK: No neck rigidity. CHEST: Kyphosis. CARDIOPULMONARY: S1, S2, regular rhythm. Questionable soft systolic murmur at the left sternal border, right second intercostal space, left second intercostal space. LUNGS: Shows positive rhonchi, creps, crackles, right more than the left. ABDOMEN: Soft, protuberant. Positive bowel sound. No palpable hepatosplenomegaly. GENITALIA: Male. RECTAL: Deferred. EXTREMITIES: Positive left upper extremity AV fistula, positive thrill, positive dialysis catheter. Lower extremity shows trace swelling of the lower extremity. No pitting edema. No calf numbness. No Homans' sign. NEUROLOGIC: The patient is alert, awake, oriented x3. He is able to move upper and lower extremity without assistance. Gait examination is not tested. VASCULAR: Palpable pulses. Cranial nerves II-XII intact. MUSCULOSKELETAL: Shows a body mass index of 30. LABORATORY DATA: DIAGNOSTICS: On 09/08/2018, WBC 6.2, hemoglobin/hematocrit 10 and 32.4, platelet 102,000 and 107,000. Retic count . PT and PTT pending. Lactate 0.7. Chemistry shows sodium of 142, potassium 4.4, chloride 104, CO2 25, anion gap 17, BUN 68, creatinine 18.5, calcium 9.1, magnesium 2.6, LDH 429. CPK 172. Troponin 0.03. BNP 2030. Influenza A and B negative. The patient had blood cultures sent, reports pending. The patient had a chest x-ray done in the emergency room which shows right lower lobe infiltrate. The patient had a CT angio done for the evaluation of shortness of breath with history of multiple bilateral pulmonary embolism which shows negative PE, fatty infiltration of the liver noted. EKG done in the emergency room was reviewed which shows sinus rhythm with PACs, Q-wave in III. The patient was seen in the emergency room by the ER physician, medical office assistant instructor and detailed history, physical examination done by the medical office assistant instructor. The patient was seen in the emergency room. The patient was treated with IV antibiotics. The patient was given Rocephin 1 g. The patient was given Zithromax 500 mg. The patient was treated in the emergency room and was sent for emergent hemodialysis. IMPRESSION AND PLAN: 1. Probable healthcare-associated versus probable community-acquired right lower lobe pneumonia and patchy air space disease with crowding of the bronchovascular marking bilaterally, right more than the left. 2. Shortness of breath, congestion and coughing with subjective fever. 3. Hepatic steatosis and fatty infiltration of the liver. 4. History of hypertension. 5. End-stage renal disease, hemodialysis dependent. 6. History of diabetic nephropathy. 7. History of glomerulosclerosis. 8. Normocytic anemia. 9. Thrombocytopenia. 10. Coumadin dependant pulmonary embolism. 11. Elevated ProBNP and end-stage renal disease. 12. Questionable old inferior wall. 13. Q-wave in III 14. Premature ventricular contraction. 15. History of hypertension, history of insulin-requiring diabetes mellitus. 16. Right lower lobe pneumonia, consolidation and airspace disease. 17. History of pulmonary embolism. PLAN: 1. At this time, the patient is to be admitted to [facility]. The patient will be ordered serial labs. The patient has been ordered Legionella titers, mycoplasma titers. Daily CBC, PT/PTT, labs ordered. CMP and LFTs ordered. Hemoglobin A1c ordered. Lipid panel ordered. The patient has been ordered. 2. Consultation is Cardiology. 3. Gastroenterology. 4. Infectious Disease. 5. Nephrology. 6. Diabetic education, TCU evaluation ordered. Rapid strep antigen ordered. The patient has been started on bronchodilators, nebulizer treatment with Xopenex and Mucomyst nebulizer treatment, Colace 100 three times a day, Coreg 12.5 twice a day, Coumadin 7 mg daily, doxycycline 100 mg IV every 12, Ecotrin 81 mg daily, ferric citrate 3 tablets three times a day, heparin 5000 subcutaneously every 8 was ordered which will be stopped. The patient has been ordered Humalog medium dose sliding scale coverage, insulin 70/30, 30 units with breakfast, dinner, Lipitor 40 mg daily, Protonix 40 mg daily. The patient is started on Rocephin 1 g IV daily, Sensipar 30 mg daily, Tessalon Perles 200 three times a day, Tylenol p.r.n. for fever, Xopenex nebulizer, Zofran 4 mg IV every 4 p.r.n. The patient was also started on doxycycline 100 mg IV every 12. The patient has also been ordered aspirin 81, insulin, Rocephin 1 g IV daily. At present, the patient is undergoing hemodialysis. The patient is awaiting for a bed upstairs. The patient will be continued on therapeutic intervention. The patient's further management will depend upon the patient's clinical condition, hemodynamic status and as per the patient response to therapeutic intervention, as per the patient's diagnostic test results. The patient has also been ordered physical therapy, occupational therapy. The patient has been ordered echocardiogram. Repeat EKG has been ordered. The patient's further management will be dependent upon the patient's clinical condition, hemodynamic status and as per the patient response to therapeutic intervention as per the patient's diagnostic test results and as per recommendation by Cardiology, Gastroenterology, Infectious Disease, Nephrology. The patient has been updated about his condition, diagnosis, test results at length and all questions concerned answered, which he acknowledged understand all. Dictated and electronically signed, not read. Christopher Harris MD [facility] # [id number] [facility]
[2018-09-10] MEDS: Pantoprazole 40 mg EC Tab PO SCH (05:37)
[2018-09-10 06:55] LABS: EOS # 0.2 (0.0-0.7); EOS % 3.5 % (1.5-5.0); GRAN # 4.03 (1.4-6.5); HEMOGLOBIN 10.4 g/dL (14.0-18.0); LYMPH # 1.4 (1.2-3.4); LYMPH % 22.7 % (22.0-35.0); MEAN CELL VOLUME 99.4 fl (80.0-105.0); MEAN CORPUSCULAR HEMOGLOBIN 31.3 pg (25.0-35.0); MEAN CORPUSCULAR HGB CONC 31.5 g/dl (31.0-37.0); MEAN PLATELET VOLUME 12.9 fl (7.0-11.0); MONO # 0.6 (0.1-0.6); MONO % 9.8 % (1.0-6.0); RBC 3.32 10^6/uL (3.5-6.1); RED CELL DISTRIBUTION WIDTH 13.1 % (11.5-14.5); WHITE BLOOD COUNT 6.3 10^3/uL (4.5-11.0)
[2018-09-10 07:00] LABS: INR 1.86; PARTIAL THROMBOPLASTIN TIME 34.2 Seconds (25.1-36.5); PROTHROMBIN TIME 21.7 SECONDS (9.4-12.5)
[2018-09-10 07:43] LABS: ALB/GLOB RATIO 1.1 (1.1-1.8); BILIRUBIN,DIRECT 0.6 mg/dL (0.0-0.4)
[2018-09-10] MEDS: FERRIC CITRATE PO SCH ×3 (08:00→18:12)
[2018-09-10] MEDS: Insulin Lispro (humaLOG) MEDIUM Coverage SC SCH ×3 (08:05→18:12)
--- NOTE | 2018-09-10 09:26 | CARD ---
APPROVED REPORT Date of service: 09/09/2018 EXAM: Two-dimensional and M-mode echocardiogram with Doppler and color Doppler. INDICATION Dyspnea ESRDHDD 2D DIMENSIONS Left Atrium (2D)4.1 (1.6-4.0cm)IVSd1.0 (0.7-1.1cm) LVDd5.2 (3.9-5.9cm)PWd1.2 (0.7-1.1cm) LVDs3.5 (2.5-4.0cm)FS (%) 31.7 % LVEF (%)59.5 (>50%) M-Mode DIMENSIONS Aortic Root4.00 (2.2-3.7cm)Aortic Cusp Exc.1.70 (1.5-2.0cm) Aortic Valve AoV Peak Lylwvyuj918.0cm/sAoV VTI37.3cmAO Peak GR.18mmHg AO Mean GR.9mmHgAI P 1/2 [id number] Mitral Valve MV E Srezlowm97.7cm/sMV A Mbrkalsh122.0cm/sE/A ratio0.7 TDI Lateral E' Peak V10.10cm/sMedial E' Peak V7.41cm/sE/Lateral E'9.8 E/Medial E'13.3 Pulmonary Valve PV Peak Bezcnyff72.0cm/sPV Peak Grad.2mmHg Tricuspid Valve TR Peak Gnktsdap413sy/sRAP [id number] Peak Gr.28mmHg [id number] LEFT VENTRICLE The left ventricle is normal size. There is borderline concentric left ventricular hypertrophy. The left ventricular function is normal. The left ventricular ejection fraction is within the normal range. There is normal LV segmental wall motion. RIGHT VENTRICLE The right ventricle is normal size. The right ventricular systolic function is normal. ATRIA The left atrium is mildly dilated. The right atrium size is normal. The interatrial septum is intact with no evidence for an atrial septal defect. AORTIC VALVE The aortic valve is normal in structure. There is moderate aortic regurgitation. There is no aortic valvular stenosis. MITRAL VALVE The mitral valve is normal in structure. There is no mitral valve regurgitation noted. TRICUSPID VALVE The tricuspid valve is normal in structure. There is mild tricuspid regurgitation. PULMONIC VALVE The pulmonary valve is normal in structure. GREAT VESSELS The aortic root is normal in size. The IVC is normal in size and collapses >50% with inspiration. PERICARDIAL EFFUSION There is no pleural effusion. There is no pericardial effusion. <Conclusion> Dilated LA. Normal LV size and systolic function. Moderate AI. Mild TR.
[2018-09-10] MEDS: Insulin Human NPH/Reg 70/30 Vial(3 ml) SC SCH ×2 (10:30→18:13)
--- NOTE | 2018-09-10 10:36 | PN ---
DATE: 09/10/2018 LOCATION: The patient is in room 569, bed 1. The patient overnight nurse's notes were reviewed. No adverse events documented. The patient slept well without any adverse events documented or reported by the nurses of the patient. PHYSICAL EXAMINATION: VITAL SIGNS: T-max 97.8, pulse 83, heart rate 83, blood pressure 116/64, respirations 20, O2 sat 97%. HEAD: Examination normocephalic, atraumatic. HEENT examination shows pinkish pale conjunctivae. Anicteric sclerae. No oropharyngeal lesion. NECK: No neck rigidity. CHEST: Kyphosis. LUNGS: Shows positive rhonchi, fine creps, right more than the left. CARDIOVASCULAR: S1, S2, regular rhythm. Questionable soft systolic murmur left sternal border, right second intercostal space, left second intercostal space. ABDOMEN: Soft. Positive bowel sounds. No palpable hepatosplenomegaly noted. GENITALIA: Male. RECTAL: Deferred. EXTREMITIES: Shows positive left upper extremity AV fistula, positive thrill. Lower extremities shows no calf tenderness, no Homans' sign, no pitting edema noted. MUSCULOSKELETAL: As per the body mass index. NEUROLOGIC: The patient is alert, awake, oriented x3. Cranial nerves II-XII is intact. Gait examination is independent. VASCULAR: Palpable pulses of the lower extremity. PSYCHIATRIC: Negative. DIAGNOSTICS: On 09/10/2018, WBC 6.3, hemoglobin/hematocrit 10.4 and 33.0, platelet 114, PT 21.7, INR 1.86. Procalcitonin level 1.91 down to 1.84. Sodium 140, potassium 4.3, chloride 105, CO2 23, BUN is 52. Creatinine is very elevated at 17.1, glucose 81. Phosphorus 6.2, magnesium 2.3. Hemoglobin A1c 5.5. Echocardiogram shows left ventricle ejection fraction of 60-65%, right ventricular systolic pressure of 38 mmHg. IMPRESSION AND PLAN: 1. Questionable community-acquired versus healthcare-associated right lower lobe pneumonia and consolidation and airspace disease. 2. End-stage renal disease, hemodialysis dependent three times a week via the left upper extremity arteriovenous fistula. 3. Normocytic anemia. 4. Thrombocytopenia. 5. Coumadin-dependant pulmonary embolism. 6. Hyperprocalcitoninemia. 7. History of diabetes mellitus well controlled. 7. Hypertensive cardiovascular disease with left ventricle ejection fraction of 60-65%. 8. Possible pulmonary hypertension with right ventricular systolic pressure of 38 mmHg. 9 History of hypertension, hyperlipidemia, diabetes mellitus. 10. History of pulmonary embolism. PLAN: At this time, the patient is to be continued on IV antibiotics as per Infectious Disease recommendation. The patient will be continued on basal and bolus insulin. The patient's insulin will be continued both basal and bolus insulin has been continued. The patient will be continued on sliding scale insulin coverage. The patient will be continued on both GI, DVT prophylaxis. CURRENT CONSULTATION: Infectious Disease, Nephrology, Cardiology. At present, the patient's further management will depend upon the patient's clinical condition, hemodynamic status and as per the patient's further therapeutic intervention, as per the patient's diagnostic test results and recommendation by all the physician involved in the care of the patient. In addition, the patient was also explained and updated about his condition, diagnosis, test results, recommendation by all the physician involved in the care of the patient. We will await further recommendation by Infectious Disease, Nephrology, Cardiology and once the patient's IV antibiotics are discontinued by Infectious Disease, we will consider the patient for discharge home. The patient was seen by Cardiology, recommended outpatient stress test since the patient is also awaiting renal transplant. Dictated and electronically signed, not read. Christopher Harris MD [facility] # [id number]
--- NOTE | 2018-09-10 11:52 | PN ---
DATE: 09/10/2018 CARDIOLOGY FOLLOWUP SUBJECTIVE: The patient's dyspnea is controlled with dialysis. OBJECTIVE: VITAL SIGNS: Blood pressure 110/43, heart rate in the 80s. Physical exam is unchanged. LABORATORY DATA: Hemoglobin is 10.4. Chemistries, potassium is 4.3. Echocardiogram reveals good LV function with an EF of 59%. There is moderate AI with a dilated LA. Given these findings, we will continue dialysis today. I have arranged for an outpatient stress test next week in preparation for possible enrollment in the renal transplant program. The patient may need cardiac catheterization to evaluate his aortic insufficiency in which we will follow as an outpatient. Reece Lima MD
--- NOTE | 2018-09-10 15:14 | CP.PCM.PN ---
<Margarito Muro - Last Filed: 09/10/18 15:10> Subjective - Date & Time of Evaluation Date of Evaluation: 09/10/18 Time of Evaluation: 10:00 - Subjective Subjective: ID progress note Patient admits to feeling well with less congestion. Denies chest pain, nausea, vomiting, cough, shortness of breath. Objective - Vital Signs/Intake and Output Vital Signs (last 24 hours): Temp Pulse Resp BP Pulse Ox 98 F 87 20 110/43 L 99 09/10/18 07:00 09/10/18 07:00 09/10/18 07:00 09/10/18 07:00 09/10/18 07:00 Intake and Output: 09/10/18 09/10/18 06:59 18:59 Intake Total 480 Balance 480 - Medications Medications: Current Medications Acetaminophen (Tylenol 325mg Tab) 650 mg PO Q6 PRN PRN Reason: TEMP>=99.5F Acetaminophen (Tylenol 650 Mg Supp) 650 mg RC Q6H PRN PRN Reason: TEMP>=99.5F Acetylcysteine (Acetylcysteine 20%) 4 ml IH [id number] [facility] Last Admin: 09/10/18 13:35 Dose: 4 ml Aspirin (Ecotrin) 81 mg PO DAILY [facility] Last Admin: 09/10/18 12:40 Dose: 81 mg Atorvastatin Calcium (Lipitor) 40 mg PO DIN [facility] Last Admin: 09/09/18 17:06 Dose: 40 mg Benzonatate (Tessalon Perles) 200 mg PO TID [facility] Last Admin: 09/10/18 14:31 Dose: Not Given Carvedilol (Coreg) 12.5 mg PO BID [facility] Last Admin: 09/10/18 12:39 Dose: 12.5 mg Cinacalcet (Sensipar) 30 mg PO DAILY [facility] Last Admin: 09/10/18 12:38 Dose: 30 mg Docusate Sodium (Colace) 100 mg PO TID [facility] Last Admin: 09/10/18 14:32 Dose: Not Given Doxycycline Hyclate (Doryx) 100 mg PO Q12 [facility]; Protocol Insulin Human Lispro (Humalog Med) 0 units SC [facility]; Protocol Last Admin: 09/10/18 12:00 Dose: Not Given Levalbuterol HCl (Xopenex) 0.63 mg IH [id number] [facility] Last Admin: 12/19/18 13:35 Dose: 0.63 mg Non-Formulary Medication (Ferric Citrate [Auryxia]) 3 tab PO ACTID [facility] Last Admin: 09/10/18 11:30 Dose: Not Given Ondansetron HCl (Zofran Inj) 4 mg IVP Q4H PRN PRN Reason: Nausea/Vomiting Pantoprazole Sodium (Protonix Ec Tab) 40 mg PO 0600 [facility] Last Admin: 09/10/18 05:37 Dose: 40 mg Warfarin Sodium (Coumadin) 5 mg PO 1800 [facility] Last Admin: 09/09/18 17:06 Dose: 5 mg Warfarin Sodium (Coumadin) 2 mg PO 1800 [facility] Last Admin: 09/09/18 17:06 Dose: 2 mg - Labs Labs: 09/10/18 06:30 09/10/18 06:30 PT 21.7 SECONDS (9.4-12.5) H 09/10/18 06:30 INR 1.86 09/10/18 06:30 APTT 34.2 Seconds (25.1-36.5) 09/10/18 06:30 - Constitutional Appears: Non-toxic, No Acute Distress - Head Exam Head Exam: ATRAUMATIC, NORMAL INSPECTION, NORMOCEPHALIC - Respiratory Exam Respiratory Exam: Clear to Ausculation Bilateral, NORMAL BREATHING PATTERN - Cardiovascular Exam Cardiovascular Exam: RRR, +S1, +S2 - GI/Abdominal Exam GI & Abdominal Exam: Soft, Normal Bowel Sounds. absent: Tenderness - Extremities Exam Extremities Exam: Normal Inspection. absent: Pedal Edema - Neurological Exam Neurological Exam: Alert, Awake, Oriented x3 - Psychiatric Exam Psychiatric exam: Normal Affect, Normal Mood - Skin Skin Exam: Intact, Normal Color, Warm Assessment and Plan - Assessment and Plan (Free Text) Plan: Acute Bronchitis ESRD Hx of PE Hx of DM type 2 Hx of HTN Plan Doxycycline changed to oral formulation. Complete 3-5 day course Blood cultures negative x 48 hours Continue hemodialysis as scheduled Continue current medical regimen Will continue to monitor Bhaskar, PGY-3 <Ulysses Kendall - Last Filed: 09/10/18 16:26> Objective - Vital Signs/Intake and Output Vital Signs (last 24 hours): Temp Pulse Resp BP Pulse Ox 98 F 87 20 110/43 L 99 09/10/18 07:00 09/10/18 07:00 09/10/18 07:00 09/10/18 07:00 09/10/18 07:00 Intake and Output: 09/10/18 09/10/18 06:59 18:59 Intake Total 480 Balance 480 - Medications Medications: Current Medications Acetaminophen (Tylenol 325mg Tab) 650 mg PO Q6 PRN PRN Reason: TEMP>=99.5F Acetaminophen (Tylenol 650 Mg Supp) 650 mg RC Q6H PRN PRN Reason: TEMP>=99.5F Acetylcysteine (Acetylcysteine 20%) 4 ml IH [id number] [facility] Last Admin: 09/10/18 13:35 Dose: 4 ml Aspirin (Ecotrin) 81 mg PO DAILY [facility] Last Admin: 09/10/18 12:40 Dose: 81 mg Atorvastatin Calcium (Lipitor) 40 mg PO DIN [facility] Last Admin: 09/09/18 17:06 Dose: 40 mg Benzonatate (Tessalon Perles) 200 mg PO TID [facility] Last Admin: 09/10/18 14:31 Dose: Not Given Carvedilol (Coreg) 12.5 mg PO BID [facility] Last Admin: 09/10/18 12:39 Dose: 12.5 mg Cinacalcet (Sensipar) 30 mg PO DAILY [facility] Last Admin: 09/10/18 12:38 Dose: 30 mg Docusate Sodium (Colace) 100 mg PO TID [facility] Last Admin: 09/10/18 14:32 Dose: Not Given Doxycycline Hyclate (Doryx) 100 mg PO Q12 [facility]; Protocol Insulin Human Lispro (Humalog Med) 0 units SC [facility]; Protocol Last Admin: 09/10/18 12:00 Dose: Not Given Levalbuterol HCl (Xopenex) 0.63 mg IH [id number] [facility] Last Admin: 09/10/18 13:35 Dose: 0.63 mg Non-Formulary Medication (Ferric Citrate [Auryxia]) 3 tab PO ACTID [facility] Last Admin: 09/10/18 11:30 Dose: Not Given Ondansetron HCl (Zofran Inj) 4 mg IVP Q4H PRN PRN Reason: Nausea/Vomiting Pantoprazole Sodium (Protonix Ec Tab) 40 mg PO 0600 [facility] Last Admin: 09/10/18 05:37 Dose: 40 mg Warfarin Sodium (Coumadin) 5 mg PO 1800 [facility] Last Admin: 09/09/18 17:06 Dose: 5 mg Warfarin Sodium (Coumadin) 2 mg PO 1800 [facility] Last Admin: 09/09/18 17:06 Dose: 2 mg - Labs Labs: 09/10/18 06:30 09/10/18 06:30 PT 21.7 SECONDS (9.4-12.5) H 09/10/18 06:30 INR 1.86 09/10/18 06:30 APTT 34.2 Seconds (25.1-36.5) 09/10/18 06:30 Assessment and Plan - Assessment and Plan (Free Text) Plan: Infectious diseases Attending Physician Attestation Patient seen and examined, discussed with medical device sales consultant. I have reviewed the patient's history of present illness, past medical, social, personal and family histories, pertinent physical exam findings, course so far in this hospital admission, pertinent laboratory and imaging results. I agree with the above findings, assessment and plan. Continue PO Doxycycyline for total 3-5 days for acute bronchitis.
--- NOTE | 2018-09-10 20:34 | CP.PCM.PN ---
Subjective - Date & Time of Evaluation Date of Evaluation: 09/10/18 Time of Evaluation: 13:00 - Subjective Subjective: Patient seen after HD today, reports feeling well; tolerating diet; breathing improved; Objective - Vital Signs/Intake and Output Vital Signs (last 24 hours): Temp Pulse Resp BP Pulse Ox 98 F 87 20 110/43 L 99 09/10/18 07:00 09/10/18 07:00 09/10/18 07:00 09/10/18 07:00 09/10/18 07:00 - Medications Medications: Current Medications Acetaminophen (Tylenol 325mg Tab) 650 mg PO Q6 PRN PRN Reason: TEMP>=99.5F Acetaminophen (Tylenol 650 Mg Supp) 650 mg RC Q6H PRN PRN Reason: TEMP>=99.5F Acetylcysteine (Acetylcysteine 20%) 4 ml IH [id number] [facility] Last Admin: 09/10/18 13:35 Dose: 4 ml Aspirin (Ecotrin) 81 mg PO DAILY [facility] Last Admin: 09/10/18 12:40 Dose: 81 mg Atorvastatin Calcium (Lipitor) 40 mg PO DIN [facility] Last Admin: 09/10/18 17:22 Dose: 40 mg Benzonatate (Tessalon Perles) 200 mg PO TID [facility] Last Admin: 09/10/18 17:22 Dose: 200 mg Carvedilol (Coreg) 12.5 mg PO BID [facility] Last Admin: 09/10/18 17:23 Dose: 12.5 mg Cinacalcet (Sensipar) 30 mg PO DAILY [facility] Last Admin: 09/10/18 12:38 Dose: 30 mg Docusate Sodium (Colace) 100 mg PO TID [facility] Last Admin: 09/10/18 17:22 Dose: 100 mg Doxycycline Hyclate (Doryx) 100 mg PO Q12 [facility]; Protocol Insulin Human Lispro (Humalog Med) [address] [facility]; Protocol Last Admin: 09/10/18 18:12 Dose: Not Given Levalbuterol HCl (Xopenex) 0.63 mg IH [id number] [facility] Last Admin: 09/10/18 13:35 Dose: 0.63 mg Non-Formulary Medication (Ferric Citrate [Auryxia]) 3 tab PO ACTID [facility] Last Admin: 09/10/18 18:12 Dose: Not Given Ondansetron HCl (Zofran Inj) 4 mg IVP Q4H PRN PRN Reason: Nausea/Vomiting Pantoprazole Sodium (Protonix Ec Tab) 40 mg PO 0600 [facility] Last Admin: 09/10/18 05:37 Dose: 40 mg Sevelamer HCl (Renagel) 2,400 mg PO ACTID [facility] Warfarin Sodium (Coumadin) 5 mg PO 1800 [facility] Last Admin: 09/10/18 17:22 Dose: 5 mg Warfarin Sodium (Coumadin) 2 mg PO 1800 [facility] Last Admin: 09/10/18 17:22 Dose: 2 mg - Labs Labs: 09/10/18 06:30 09/10/18 06:30 PT 21.7 SECONDS (9.4-12.5) H 09/10/18 06:30 INR 1.86 09/10/18 06:30 APTT 34.2 Seconds (25.1-36.5) 09/10/18 06:30 - Constitutional Appears: Non-toxic, No Acute Distress - Eye Exam Eye Exam: Normal appearance - Respiratory Exam Respiratory Exam: Clear to Ausculation Bilateral. absent: Respiratory Distress - Cardiovascular Exam Cardiovascular Exam: RRR, +S1, +S2 - GI/Abdominal Exam GI & Abdominal Exam: Soft. absent: Distended, Tenderness - Extremities Exam Additional comments: no leg edema; - Psychiatric Exam Psychiatric exam: Normal Affect, Normal Mood - Skin Skin Exam: Warm. absent: Cyanosis Assessment and Plan (1) ESRD (end stage renal disease) on dialysis Assessment & Plan: Stable volume and electrolyte status, continuing with HD on MWF schedule per routine; Status: Chronic (2) Chronic kidney disease-mineral and bone disorder Assessment & Plan: Phos high, started on sevelamer as auryxia not currently available; continue sensipar on HD days; Status: Chronic (3) Hypertensive CKD, ESRD on dialysis Assessment & Plan: BP controlled, continue current meds; Status: Chronic (4) Anemia in chronic kidney disease (CKD) Assessment & Plan: Hgb at goal, will give EPO per outpatient protocol; Status: Chronic
[2018-09-10 22:28] VITALS: O2SAT 96
[2018-09-11] MEDS: Acetylcysteine 20% Inhal Soln (4ml) IH SCH ×2 (01:57→07:52)
[2018-09-11] MEDS: Levalbuterol 0.63 MG/3 ML Inhal Soln UD IH SCH ×2 (01:57→07:52)
[2018-09-11] MEDS: Pantoprazole 40 mg EC Tab PO SCH (05:26)
[2018-09-11 07:11] LABS: INR 2.1; PARTIAL THROMBOPLASTIN TIME 37.4 Seconds (25.1-36.5); PROTHROMBIN TIME 24.5 SECONDS (9.4-12.5)
[2018-09-11 07:18] LABS: BASO # 0.01 K/mm3 (0.0-2.0); BASO % 0.1 % (0.0-3.0); EOS # 0.2 (0.0-0.7); EOS % 2.9 % (1.5-5.0); GRAN # 4.54 (1.4-6.5); HEMOGLOBIN 10.4 g/dL (14.0-18.0); LYMPH # 1.5 (1.2-3.4); LYMPH % 21.7 % (22.0-35.0); MEAN CELL VOLUME 99.7 fl (80.0-105.0); MEAN CORPUSCULAR HEMOGLOBIN 30.8 pg (25.0-35.0); MEAN CORPUSCULAR HGB CONC 30.9 g/dl (31.0-37.0); MEAN PLATELET VOLUME 13.1 fl (7.0-11.0); MONO # 0.7 (0.1-0.6); MONO % 10.3 % (1.0-6.0); RBC 3.38 10^6/uL (3.5-6.1); RED CELL DISTRIBUTION WIDTH 13.2 % (11.5-14.5)
[2018-09-11 07:51] LABS: ALBUMIN 4.1 g/dL (3.0-4.8); BILIRUBIN,DIRECT 0.4 mg/dL (0.0-0.4); CALCIUM 8.8 mg/dL (8.4-10.5)
[2018-09-11 08:22] VITALS: PULSE 93; RESP 20; TEMP 98
[2018-09-11 08:23] VITALS: BP 123/69
[2018-09-11] MEDS: Insulin Human NPH/Reg 70/30 Vial(3 ml) SC SCH (08:39)
[2018-09-11] MEDS: Insulin Lispro (humaLOG) MEDIUM Coverage SC SCH (08:39)
[2018-09-11] MEDS: FERRIC CITRATE PO SCH (08:39)
--- NOTE | 2018-09-11 12:28 | DS ---
HISTORY OF PRESENT ILLNESS: The patient is seen walking around in the room in room 569, bed 1. Overnight nurse's notes were reviewed. The patient was without any distress or adverse events noted. PHYSICAL EXAMINATION: VITAL SIGNS: T-max 98, heart rate 63-93, blood pressure 123/69, respirations 20, O2 sat 96%. Head examination normocephalic, atraumatic. HEENT examination shows pinkish pale conjunctivae. Anicteric sclerae. No oropharyngeal lesion. NECK: No neck rigidity. CHEST: Kyphosis. LUNGS: Show decreasing rhonchi and creps on the right side, left lung is clear. CARDIOVASCULAR: S1, S2, regular rhythm. Questionable soft systolic murmur at left sternal border, right second intercostal space, left second intercostal space. ABDOMEN: Soft. Positive bowel sounds. No palpable hepatosplenomegaly noted. Genitalia: Male. Rectal examination is deferred. EXTREMITIES: Extremity examination shows positive left upper extremity AV fistula, positive thrill. Lower extremity examination shows no pitting edema noted. MUSCULOSKELETAL: Shows a body mass index of 30. NEUROLOGICAL: The patient is alert, awake, oriented x3. Cranial nerves II-XII intact. Gait examination is independent. LABORATORY DATA: On 09/11/2018, WBC 7.0, hemoglobin and hematocrit are 10.4 and 33.7, platelets 123. PT 24.5, INR 2.30. Sodium 141, potassium 4.4, chloride 105, CO2 of 23, anion gap 17, BUN 43, creatinine is 13.8, GFR is 4. Glucose 135, 119. Calcium 8.8, phosphorus 5.5, magnesium 2.3. LFTs are normal. Influenza A and B serologies are negative. Blood cultures are negative. FINAL IMPRESSION, PLAN AND DISCHARGE DIAGNOSES: 1. Right lower lobe pneumonia and patchy airspace disease with bronchovascular crowding. 2. Hypertension. 3. Normocytic anemia. 4. Thrombocytopenia. 5. Coumadin-dependent pulmonary embolism. 6. Coumadin-dependent atrial fibrillation. 7. Insulin-requiring diabetes mellitus, well controlled with hemoglobin A1c of 5.5. 8. Hyperphosphatemia. 9. Secondary hyperparathyroidism. 10. Hyper-procalcitoninemia. 11. Hypertriglyceridemia. 12. Hepatic steatosis with fatty infiltration of the liver. 13. Left ventricular ejection fraction of 60%. 14. Borderline concentric left ventricular hypertrophy. 15. Mildly dilated left atrium. 16. Moderate aortic regurgitation. 17. Mild tricuspid regurgitation. 18. End-stage renal disease, hemodialysis dependent with three times a week via the left upper extremity AV fistula. 19. Bone and mineral disorder secondary to chronic kidney disease. 20. Hypertensive end-stage renal disease. 21. Anemia of chronic kidney disease. PLAN: At this time, the patient is seen by Infectious Disease. The patient was switched over to p.o. antibiotics. The patient will be discharged home since patient is cleared by all the subspecialties. DISCHARGE MEDICATIONS: Ecotrin 81 mg daily, Lipitor 40 mg daily, Tessalon Perles 200 three times a day, Coreg 12.5 twice a day, Sensipar 30 mg daily, doxycycline 100 mg every 12 hours for 5 days, ferric citrate or Auryxia 210 mg 3 tablets three times a day. Insulin 70/30, 30 units with breakfast and dinner. Renagel 2400 mg three times a day, Coumadin 7 mg daily. The patient is to be discharged home. Discharge followup with PMD or Dr. Harris within 1 week. Discharge medications as per updated ambulatory orders and new script. The patient is advised to follow up with Nephrology for dialysis. Time spent in the discharge process, 45 minutes. During this hospitalization, the patient was extensively explained about the details of his medical condition, diagnoses, treatment plan, treatment options, diagnostic test results all explained to the patient at length and all questions concerned answered to his satisfaction. Dictated and electronically signed, not read. Christopher Harris MD
--- NOTE | 2018-09-11 14:22 | CP.PCM.PN ---
<Margarito Muro - Last Filed: 09/11/18 14:20> Subjective - Date & Time of Evaluation Date of Evaluation: 09/11/18 Time of Evaluation: 07:00 - Subjective Subjective: Patient seen at bedside. Patient with no complaints. No congestion today. Denies chest pain, shortness of breath, nausea, vomiting, diarrhea, fever, chills. Objective - Vital Signs/Intake and Output Vital Signs (last 24 hours): Temp Pulse Resp BP Pulse Ox 98 F 93 H 20 123/69 96 09/11/18 06:00 09/11/18 06:00 09/11/18 06:00 09/11/18 06:00 09/11/18 06:00 - Labs Labs: 09/11/18 06:30 09/11/18 06:30 PT 24.5 SECONDS (9.4-12.5) H 09/11/18 06:30 INR 2.10 09/11/18 06:30 APTT 37.4 Seconds (25.1-36.5) H 09/11/18 06:30 - Constitutional Appears: Non-toxic, No Acute Distress - Head Exam Head Exam: ATRAUMATIC, NORMAL INSPECTION, NORMOCEPHALIC - ENT Exam ENT Exam: Mucous Membranes Moist - Respiratory Exam Respiratory Exam: Clear to Ausculation Bilateral, NORMAL BREATHING PATTERN. absent: Rales, Rhonchi, Wheezes - Cardiovascular Exam Cardiovascular Exam: RRR, +S1, +S2 - GI/Abdominal Exam GI & Abdominal Exam: Soft, Normal Bowel Sounds. absent: Tenderness - Extremities Exam Extremities Exam: Normal Inspection. absent: Pedal Edema - Neurological Exam Neurological Exam: Alert, Awake, Oriented x3 - Psychiatric Exam Psychiatric exam: Normal Affect, Normal Mood - Skin Skin Exam: Intact, Normal Color, Warm Assessment and Plan - Assessment and Plan (Free Text) Plan: Acute Bronchitis ESRD Hx of PE Hx of DM type 2 Hx of HTN Plan Complete Doxycycline 3-5 day course Blood cultures negative x 72 hours Continue hemodialysis as scheduled Will continue to monitor Bhaskar PGY-3 <Ulysses Kendall - Last Filed: 09/11/18 23:00> Objective - Vital Signs/Intake and Output Vital Signs (last 24 hours): Temp Pulse Resp BP Pulse Ox 98 F 93 H 20 123/69 96 09/11/18 06:00 09/11/18 06:00 09/11/18 06:00 09/11/18 06:00 09/11/18 06:00 - Labs Labs: 09/11/18 06:30 09/11/18 06:30 PT 24.5 SECONDS (9.4-12.5) H 09/11/18 06:30 INR 2.10 09/11/18 06:30 APTT 37.4 Seconds (25.1-36.5) H 09/11/18 06:30 Assessment and Plan - Assessment and Plan (Free Text) Plan: Infectious diseases Attending Physician Attestation Patient seen and examined, discussed with medical clinic manager. I have reviewed the patient's history of present illness, past medical, social, personal and family histories, pertinent physical exam findings, course so far in this hospital admission, pertinent laboratory and imaging results. I agree with the above findings, assessment and plan.
== END 2018-09-11 10:12 | disposition home or self-care (01) | DRG 193 ==
LOC: ED 10:04 → ERH 16:28 → 5RNO 09-09 03:41
PROVIDERS: ADMIT Internal Medicine; ATTEND Internal Medicine
PROC: 5A1D70Z Performance of Urinary Filtration, Intermittent, Less than 6 Hours Per Day (ICD-10-PCS; principal; 2018-09-08)
PROC: 5A1D70Z Performance of Urinary Filtration, Intermittent, Less than 6 Hours Per Day (ICD-10-PCS; 2018-09-10)
DX: J18.1 Lobar pneumonia, unspecified organism (principal); N18.6 End stage renal disease; I50.31 Acute diastolic (congestive) heart failure; N25.81 Secondary hyperparathyroidism of renal origin; I13.2 Hypertensive heart and chronic kidney disease with heart failure and with stage 5 chronic kidney disease, or end stage renal disease; E11.22 Type 2 diabetes mellitus with diabetic chronic kidney disease; E83.39 Other disorders of phosphorus metabolism; D63.1 Anemia in chronic kidney disease; I49.3 Ventricular premature depolarization; M89.9 Disorder of bone, unspecified; D69.6 Thrombocytopenia, unspecified; E11.21 Type 2 diabetes mellitus with diabetic nephropathy; E11.51 Type 2 diabetes mellitus with diabetic peripheral angiopathy without gangrene; I48.91 Unspecified atrial fibrillation; J00 Acute nasopharyngitis [common cold]; J20.9 Acute bronchitis, unspecified; E78.1 Pure hyperglyceridemia; E78.5 Hyperlipidemia, unspecified; K76.0 Fatty (change of) liver, not elsewhere classified; Z99.2 Dependence on renal dialysis; Z86.711 Personal history of pulmonary embolism; Z79.4 Long term (current) use of insulin; Z79.01 Long term (current) use of anticoagulants; Z76.82 Awaiting organ transplant status

== ENCOUNTER 2018-09-25 06:53 | Outpatient (CLI) | payer MEDICARE, MEDICAID | END 2018-09-25 06:54 | disposition home or self-care (01) | LOC: CARDIO 06:53 ==

== ENCOUNTER → 2018-10-03 | Day surgery (SDC) | payer MEDICARE, MEDICAID ==
[2018-09-25 14:23] VITALS: BMI 30.4
[~2018-10-03] MED LIST: Iodixanol 320 MG/ML 100 ML BOTTLE IV ONE; Iodixanol 320 MG/ML 200 ML BOTTLE IV ONE; Iohexol 350mgl/ml 50 ML ONE; Lidocaine 2% Inj (20ml) ONE; Midazolam 2 MG/2 ML VIAL ONE; Naloxone 0.4 mg/ml Inj (Adult) ONE; Nitroglycerin 50mg in D5W 0 MG/0 ML BOTTLE IV ONE; Phenylephrine 10 mg/ml Inj ONE
[2018-10-03 06:58] LABS: BASO # 0.02 K/mm3 (0.0-2.0); BASO % 0.2 % (0.0-3.0); EOS # 0.2 (0.0-0.7); EOS % 2.6 % (1.5-5.0); GRAN # 6.57 (1.4-6.5); GRAN % 71.5 % (50.0-68.0); HEMOGLOBIN 11.1 g/dL (14.0-18.0); LYMPH # 1.3 (1.2-3.4); MONO # 1.1 (0.1-0.6); MONO % 11.7 % (1.0-6.0); RBC 3.58 10^6/uL (3.5-6.1); RED CELL DISTRIBUTION WIDTH 13.7 % (11.5-14.5); WHITE BLOOD COUNT 9.2 10^3/uL (4.5-11.0)
[2018-10-03 07:07] LABS: INR 1.14; PARTIAL THROMBOPLASTIN TIME 32.4 Seconds (25.1-36.5); PROTHROMBIN TIME 13.1 SECONDS (9.4-12.5)
[2018-10-03 07:38] LABS: CALCIUM 9.8 mg/dL (8.4-10.5)
[2018-10-03 08:44] VITALS: RESP 16; TEMP 97.7
[2018-10-03 09:09] VITALS: O2SAT 96
--- NOTE | 2018-10-03 11:10 | CARDCATH ---
PROCEDURE DATE: 10/03/2018 HISTORY: The patient is a 53-year-old male with history of diabetes mellitus, hypertension, and hypercholesterolemia; in addition, he suffers from end-stage renal disease, currently on dialysis. He presents with an abnormal stress test. Because of this, cardiac catheterization was recommended. PROCEDURE: Left heart catheterization with coronary arteriography and left ventriculogram with supra-aortic valvular injection. The right femoral artery was cannulated with a 6-Italian sheath. There were no complications. I performed moderate sedation which included the presence of an independent trained observer that assisted in monitoring the patient's level of consciousness and physiologic status. After administration of Versed and fentanyl, my intra-service time was 15 minutes. The patient's sedation was reversed with Narcan, post-procedure. The findings on catheterization revealed a left ventricle that contracted normally. Estimated ejection fraction of 60%. Supra-aortic valvular injection revealed no aortic insufficiency. His coronary anatomy revealed a right dominant circulation. The RCA was within normal limits. The left main artery was unremarkable. The LAD and diagonal vessels were within normal limits. The circumflex artery was unremarkable. Angio-Seal was used to close the femoral artery site. The patient tolerated the procedure well. In summary, the procedure revealed normal LV function. No aortic insufficiency. No coronary artery disease. Given these findings, the patient's treatment should be a cardiac risk reduction program. There are no cardiac contraindications for him to be enrolled in a renal transplant program. We will restart his Coumadin which he has been on for history of pulmonary embolism. We will give him a loading dose of 8 mg today with instructions to follow up with his usual 4 mg daily. He will follow up with his primary care doctor and and kidney doctor for followup. He can be discharged after dialysis today. Reece Lima MD
[2018-10-03 12:25] VITALS: BP 138/84; PULSE 80
== END | disposition home or self-care (01) ==
LOC: CATH 06:07
PROVIDERS: ATTEND Internal Medicine Cardiovascular Disease
DX: R94.39 Abnormal result of other cardiovascular function study (principal); N18.6 End stage renal disease; I12.0 Hypertensive chronic kidney disease with stage 5 chronic kidney disease or end stage renal disease; E11.22 Type 2 diabetes mellitus with diabetic chronic kidney disease; E78.00 Pure hypercholesterolemia, unspecified; Z99.2 Dependence on renal dialysis; Z86.711 Personal history of pulmonary embolism; Z79.01 Long term (current) use of anticoagulants; Z79.4 Long term (current) use of insulin
CPT/HCPCS: 36415; 80048; 85025; 85610; 85730; 86850; 86900; 93458; 99152; C1760; C1769; C2629; J1644; J2250; J2310; J3010; Q9966